=== PATIENT | female | born 1965 | race Caucasian/White ===

== ENCOUNTER 2021-02-07 11:37 | Outpatient (CLI) | payer BC, SELFPAY ==
--- NOTE | 2021-02-07 11:56 | XRR_ITS ---
PROCEDURE INFORMATION: Exam: XR Cervical Spine Exam date and time: 02/07/2021 11:56 AM Age: 55 years old Clinical indication: Pain; Cervicalgia; Prior surgery; Surgery type: C4-c5 disk; Additional info: Cervicalgia, please comment on presence or absence of spinal instability TECHNIQUE: Imaging protocol: XR of the cervical spine. Views: 2 or 3 views. COMPARISON: No relevant prior studies available. FINDINGS: Bones/joints: Intervertebral disc spacer at C4-C5 in expected alignment. No acute fracture. Normal alignment of the cervical spine on flexion and extension radiographs. Soft tissues: Unremarkable. XR/XR cervical spine fl/ex [id number] IMPRESSION: Intervertebral disc spacer at C4-C5 in expected alignment. No acute abnormalities.
== END 2021-02-07 11:38 | disposition home or self-care (01) ==
PROVIDERS: PCP Nurse Practitioner; Visit Provider Nurse Practitioner
DX: M54.2 Cervicalgia (principal)
CPT/HCPCS: 72040

== ENCOUNTER 2022-05-01 13:19 | Outpatient (CLI) | payer OTHER, SELFPAY ==
--- NOTE | 2022-05-01 13:45 | MR_ITS ---
WS: [id number] MRI HEAD WITH CONTRAST WITH ATTENTION TO THE INTERNAL AUDITORY CANALS TECHNIQUE: Sagittal T1, T2 axial, T2 axial flair, axial susceptibility weighted imaging, axial diffus ion weighted images, and coronal T2 images were obtained. Pre and post T1 axial and post T1 coronal i mages. ADC and FSPGR images. Post gadolinium images with attention to the internal auditory canals. A xial fiesta imaging. CLINICAL INFORMATION: G43.909 - Migraine, unspecified, not intractable, without... COMPARISON: None. FINDINGS: No evidence of restricted diffusion to suggest acute ischemia. Ventricular system and basal cisterns are patent. Minimal periventricular white matter changes likely due to minimal small vessel change in patient this age. No significant parenchymal volume loss. Normal posterior fossa. Normal vascular fl ow voids at the skull base. No extra-axial fluid collections. Mild mucosal thickening in the paranasa l sinuses. Mastoid air cells are well aerated. No hemosiderin on susceptibly weighted images. Inciden sam partially empty sella. Incidental bilateral petrous apex cephaloceles. Normal optic chiasm and pituitary infundibulum. Normal cavernous sinuses and Meckel's cave. Proximal 7th and 8th cranial nerves are normal in appearance. No evidence of enhancing IAC or CP angle mass. N ormal trigeminal nerve root entry zones. Benign venous angioma in the LEFT frontal lobe. MR/MR iac's wo con [id number] IMPRESSION: 1. No evidence of restricted diffusion to suggest acute ischemia. 2. 7th and 8th proximal cranial nerves are normal in appearance. No evidence o f enhancing IAC or CP angle mass. Normal trigeminal nerve root entry zones. 3. Benign incidental enhancing venous angioma in the LEFT frontal lobe. 4. No hemosiderin on the susceptibly weighted images. 5. Minimal periventricular small vessel changes. No significant parenchymal vo lume loss.
== END 2022-05-01 13:20 | disposition home or self-care (01) ==
PROVIDERS: PCP Nurse Practitioner Family; Visit Provider Specialist
DX: G43.909 Migraine, unspecified, not intractable, without status migrainosus (principal); Q28.3 Other malformations of cerebral vessels
CPT/HCPCS: 70551

== ENCOUNTER 2023-10-17 09:04 | Outpatient (CLI) | payer OTHER, SELFPAY ==
--- NOTE | 2023-10-17 09:17 | MR_ITS ---
WS: [id number] MRI CERVICAL SPINE NONCONTRAST TECHNIQUE: Sagittal T1, T2 and STIR imaging. Axial T2, gradient, and fiesta imaging. CLINICAL INFORMATION: M50.90 - Cervical disc disorder, unspecified, unspecified... FINDINGS: Straightening with slight reversal normal cervical lordosis. ACDF C4-5. No high-grade central canal n arrowing. Cord signal is normal. C2-C3: Normal. C3-C4: Normal. C4-C5: Postoperative changes ACDF. Mild facet arthropathy. Spinal canal and foramen are patent. C5-C6: Mild disc bulging with slight effacement of the ventral thecal sac. Uncovertebral joint hypert rophy. Spinal canal and foramen are patent. Mild facet arthropathy. C6-C7: Mild disc bulge with endplate ridging. Mild facet arthropathy. Spinal canal and foramen are pa tent. C7-T1: Slight LEFT C7-T1 bony foraminal narrowing. Visualized brain stem structures: Normal. Prevertebral soft tissues: Normal. MR/MR cervical spin wo con* [id number] IMPRESSION: 1. Straightening with slight reversal of the normal cervical lordosis. Postope rative changes ACDF C4-5. 2. No significant spinal canal or foraminal narrowing. 3. Slight LEFT C7-T1 foraminal narrowing. 4. Mild facet arthropathy worse at C3-C4 C4-C5 C5-C6
== END 2023-10-17 09:05 | disposition home or self-care (01) ==
LOC: RAD 09:07
PROVIDERS: PCP Family Medicine; Visit Provider Nurse Practitioner Family
DX: M62.81 Muscle weakness (generalized) (principal); G56.93 Unspecified mononeuropathy of bilateral upper limbs; M50.322 Other cervical disc degeneration at C5-C6 level; M47.812 Spondylosis without myelopathy or radiculopathy, cervical region
CPT/HCPCS: 72141

== ENCOUNTER 2023-11-06 10:57 | Outpatient (CLI) | payer OTHER, SELFPAY ==
--- NOTE | 2023-11-06 11:00 | MM_ITS ---
WS: [id number] VIEWS: MLO and CC views both breasts. 3D digital tomosynthesis is also included in this exam. No previous exams Findings: There is a 4 mm ovoid nodule identified in the RIGHT breast at about the 9 o'clock position anterior depth. No architectural distortion or suspicious calcification. The LEFT breast is unremarkable. Ther e are scattered areas of fibroglandular density. Regional ultrasound of the RIGHT breast is recommend ed for further work-up. MM/[place] [id number] Impression: BI-RADS: 0-Incomplete: Need additional imaging evaluation FOLLOW-UP: See Report This mammogram was also analyzed by the Computer Aided Detection System R2 Imag e Travel Guide.
== END 2023-11-06 10:58 | disposition home or self-care (01) ==
LOC: MOBLMAM 11:03
PROVIDERS: PCP Nurse Practitioner Family; Visit Provider Nurse Practitioner Family
DX: Z12.31 Encounter for screening mammogram for malignant neoplasm of breast (principal); N63.15 Unspecified lump in the right breast, overlapping quadrants; R92.323 Mammographic fibroglandular density, bilateral breasts
CPT/HCPCS: 77063; 77067

== ENCOUNTER 2024-12-21 21:03 | Emergency (ER) | payer OTHER, BC, SELFPAY ==
--- OUTSIDE RECORDS SUMMARY | 2020-04-16 15:08 | XMS_ITS | Continuity of Care Document ---
Author Organization [facility] Address [address] [place] [address] Phone Care Team Providers Care Molder Punch Name Role Phone No Information Unavailable Unavailable Allergies, Adverse Reactions, Alerts Substance Reaction Status Criticality codeine Dizziness Active No Information codeine GI Upset Active No Information trimethoprim sores in mouth Active No Informatio n sulfamethoxazole sores in mouth Active No Inform ation sulfamethoxazole Swelling Active No Informat ion Medications Medication Instructions Dosage Effective Dates (start - stop) Status Comments rosuvastatin 10 mg tablet take 1 tablet by oral route every day 10 MG - Active meloxicam 15 mg tablet take 1 tablet by oral route every day 15 MG - Active Lunesta 2 mg tablet take 1 tablet by oral route every day at bedtime 2 MG - Active duloxetine 30 mg capsule,delayed release take 1 capsule by oral route every day 30 MG - Active valacyclovir 1 gram tablet take 2 Tablet by oral route 2 times every day for 1 day at the first sign of a cold sore 2000 MG - Active cranberry 450 mg tablet - Active melatonin 10 mg capsule - Active Benadryl 25 mg capsule take 7 Capsule by oral route every 4 - 6 hours as needed 175 MG - Active lysine 1,000 mg tablet - Active Compound Medication ORAL TABLET - Active compounded cream: doxepin, gabapentin, ketamine Flonase Allergy Relief 50 mcg/actuation nasal spray,suspension inhale 2 spray by intranasal route every day in each nostril 100 MCG - Active Albuterol HFA 90mcg Inhalation AEROSOL take 2 puffs every 4-6 hours as needed - Active Protonix 20 mg tablet,delayed release take 2 tablet by oral route every day 40 MG - Active hydrocodone 7.5 mg-acetaminophen 325 mg tablet take 1 tablet by oral route every 6 hours as needed for pain 1.00 tablet - Active promethazine 25 mg tablet take 1 tablet by oral route every 4 hours as needed 25 MG - Active diazepam 10 mg tablet take 1 tablet by oral route 3 times every day 10 MG - Active Procedures Procedure Date Offic/outpt E&m Estab Mod-al 2 18 Offic/outpt E&m Estab Mod-al 2 17 Offic/outpt E&m Estab Mod-al 2 17 Venipuncture Gonadotropin; Follicle Stim Ho 17 Gonadotropin; Luteinizing Horm 17 Estradiol Progesterone General Health Panel Prevent E&m Estab Pt; 40-64 Yr 17 General Health Panel Hgb; Glycated Lipid Panel Venipuncture Offic/outpt E&m [facility] 45 7 Methylprednisolone Acetate-80mg 017 Therapeutic Prophylactic/Dx Injection Gaviria bq/Im MEDICAL RECORDS EA ADDT'L PAGE .50 PER P AGE Agt-immunassay Dir Obs; Strep 3 Offic/outpt E&m Estab Low-mod 3 Agt-immunassay Dir Obs; Strep 3 Offic/outpt E&m Estab Low-mod 3 Venipuncture Immuniz Admin; 1/combo Vacc/to 13 Ua Dip Stik/tablet; Wo Micro A 13 Offic/outpt E&m Estab Mod-hi 2 13 Lipid Panel Comp Metabolic Panel Offic/outpt E&m Estab Mod-hi 2 13 Prevent E&m Estab Pt; 40-64 Yr 13 Venipuncture Lipid Panel General Health Panel Offic/outpt E&m Estab Low-mod 3 Ua Dip Stik/tablt;wo Micro Non 13 Offic/outpt E&m New Mod Sever 3 Advance Directives Directive Yes / No Effective Date File Name No Information Encounters Encounter Description Practice Location Reason(s) For Visit Diagnoses Date Provider Providers Copied on Encounter Medical [facility], [address], [place], [place], [id number] , tel: [phone] No Information 0 No Information Medical [facility], [address], [place], [place], [address] , tel: [phone] [place] No Information 9 Colt Francesca. [address] [facility], [facility] [address], [place], [place], [id number], [place]. tel:[phone] [facility], [address], [place], [place], [id number] , [place] tel: [phone] [place] No Information 8 Colt Francesca. [address] [facility], [facility] [address], [place], [place], [address], [place]. tel:[phone] [facility], [address], [place], [place], [id number] , [place] tel: [phone] [place] No Information 8 Colt Francesca. [address] [facility], [facility] [address], [place], [place], [address], [place]. tel:[phone] Offic/outpt E&m Estab Mod-hi 2 Medical [facility], [address], [place], [place], [address] , [place] tel: [phone] [place] AnxietyHot flashesRecurren t cold soresPrimary insomnia 8 Colt Francesca. [address] [facility], [address], [place], [place], [address], [place]. [phone] Referring Provider: Francesca Boyce, [address] [place] [address] [address], [place], [address]. tel:[phone] Offic/outpt E&m Estab [facility], [address], [place], [place], [address] , [place] tel: [phone] [place] Fatigue, unspecified typeHot flashesDepressi on with anxiety 7 Colt Francesca. [address] [place] [address], [address], [place], [place], [address], [place]. [phone] Referring Provider: Francesca Boyce, [address] [place] [address] [address], [place], [address]. tel:[phone] Offic/outpt E&m Estab [facility], [address], [place], [place], [address] , [place] tel: [phone] [facility] Chronic fatigueGenerali zed painOther social stressorHot flashes 7 Colt Francesca. [address] [place] [address], [address], [place], [place], [address], [place]. tel:[phone] Referring Provider: Francesca Boyce, [address] [place] [address] [address], [place], [address]. [phone] [facility], [address], [place], [place], [id number] , [place] tel: [phone] [place] No Information May- 7 Mónica Hull. [address], [address], [place], [place], [address], [place]. [phone] Medical [facility], [address], [place], [place], [address] , [place] tel: [phone] [facility] No Information 7 Mónicaricardo Rhodesng. [address], [address], [place], [place], [address], [place]. tel:[phone] Prevent E&m Estab Pt; 40-64 Yr Medical [facility], [address], [place], [place], [address] , [place] tel: [phone] [place] Annual physical examCervical disc diseaseBreast cancer screening 7 Mónica Hull. [address], [address], [place], [place], [address], [place]. tel:[phone] Referring Provider: Francesca Boyce, [address] [address], [place], [address]. tel:[phone] [facility], [address], [place], [place], [address] , [place] tel: [phone] [place] No Information 7 Mónica Hull. [address], [facility] [address], [place], [place], [address], [place]. tel:[phone] Offic/outpt E&m New Mod-hi 45 Medical [facility], [address], [place], [place], [address] , [place] tel: [phone] [place] Allergic rhinitis, unspecified allergic rhinitis trigger, unspecified rhinitis seasonalityOthe r chronic painAnxietyWhee zing 7 Mónica Hull. [address], [address], [place], [place], [address], [place]. tel:[phone] Referring Provider: Francesca Boyce, [address] [facility] [address], [place], [address]. [phone] Medical [facility], [address], [place], [place], [address] , [place] tel: [phone] [facility] No Information 5 Colt Francesca. [address] [facility], [address], [place], [place], [address], [place]. tel:[phone] Referring Provider: Francesca Boyce, [address] [facility] [address], [place], [address]. [phone] Offic/outpt E&m [facility], [address], [place], [place], [id number] , [place] tel: [phone] [facility] URI - UPPER RESP. INFECTIONPHARYN GITIS,ACUTE 3 Colt Francesca. [address] [facility], [address], [place], [place], [address], [place]. tel:[phone] Referring Provider: Francesca Boyce, [address] [place] [address] [address], [place], [address]. tel:[phone] Offic/outpt E&m [facility], [address], [place], [place], [address] , [place] tel: [phone] [facility] PHARYNGITIS,ACU TELARYNGITIS,AC YOCHA DEHE W/O OBSTRUCTIONCOUG H Nov- 3 Francisco House. [address] [facility], [address], [place], [place], [address], [place]. tel:[phone] Referring Provider: Francesca Boyce, [facility] [facility] [address], [place], [address]. tel:[phone] Offic/outpt E&m [facility] Medical [facility], [address], [place], [place], [address] , [place] tel: [phone] [facility] DYSURIADISCITIS , CERVICALPAIN, ABD, GENERALIZEDHYPE RLIPIDEMIA, UNSPECIFIED Oct-0 3-201 3 Colt Francesca. [address] [facility], [address], [place], [place], [address], [place]. tel:[phone] Referring Provider: Francesca Boyce, [address] [facility] [address], [place], [address]. tel:[phone] Offic/outpt E&m Estab Mod-hi 2 Medical [facility], [address], [place], [place], [address] , [place] tel: [phone] [facility] HYPERLIPIDEMIA, UNSPECIFIEDDYSP AREUNIADISCITIS , CERVICAL Aug-0 5 3 Colt Francesca. [address] [facility], [address], [place], [place], [address], [place]. tel:[phone] Referring Provider: Francesca Boyce, [address] [facility] [address], [place], [address]. tel:[phone] Prevent E&m Estab Pt; 40-64 Yr Medical [facility], [address], [place], [place], [address] , [place] tel: [phone] [facility] EXAM, GENERAL, ROUTINEEXAM, GYNECOLOGICALDY SPAREUNIA Kemal-2 3 Colt Francesca. [address] [facility], [address], [place], [place], [address], [place]. tel:[phone] Referring Provider: Francesca Boyce, [address] [facility] [address], [place], [address]. tel:[phone] Offic/outpt E&m Estab Low-mod Medical [facility], [address], [place], [place], [address] , [place] tel: [phone] [facility] URI - UPPER RESP. INFECTION 3 Colt Francesca. [address] [facility], [address], [place], [place], [address], . tel:[phone] Referring Provider: Francesca Boyce, [address] [facility] [address], [place], [address]. [phone] Offic/outpt E&m [facility], [address], [place], [place], [address] , [place] tel:[phone] [facility] DISCITIS, CERVICALDISCITI S, CERVICALRHINITI S, ALLERGICRHINITI S, ALLERGICPAIN, ABD, GENERALIZEDPAIN , ABD, GENERALIZEDCONS TIPATION, OTHERCONSTIPATI ON, OTHERANXIETYANX IETY 3 Colt Francesca. [address] [facility], [address], [place], [place], [address], . tel:[phone] Referring Provider: Francesca Boyce, [address] [place] [address] [address], [place], [address]. [phone] Family History Family Member Type Diagnosis Age At Onset grandmother (materna Problem (finding) Leukemia Mother Problem (finding) Coronary Artery Disease Father Problem (finding) Throat Cancer Mother Problem (finding) Diabetes Siblings Problem (finding) hep C X 1 Siblings Problem (finding) htn X 4, DMX2, mental i llness X2 Immunizations Vaccine Date Status Comments Influenza Vaccine administered Note: Admi nistered by Collin Esteban ; Source: New Immunization Record Payers Payer name Insurance type Covered democrat ID Authoriza tion(s) No Information Social History Type Description Quantity Date Captured Comments Alcohol Use Details wine 2 Caffeine Use Details 2 cups per day Tobacco Use Status No Information Smoking Status No Information Sex Female Chief Complaint And Reason For Visit No Information Reason For Referral Reason For Referral No Information Plan Of Treatment Date Type Action Status Referral Referred To: [facility] [address] [place], [id number] Ordered: Diagnostic Order: Mammogram Screening 3D w/ additional views and/or US if indicated ordered Referral Referred To: Josh Cox DO [address] [facility]
[address] [place], [id number] Ordered: Referrals: Anethesiology - Josh Cox DO ordered History Of Present Illness Encounter Date Complaint History Of Prese nt Illness No Information Functional Status Date Functional Assessmen t No Information Instructions Date Instruction Additional Infor mation No Information Assessments Type Assessment Date No Information Patient Care Teams Name Effective Dates (start - stop) Status Members No Information
[2024-12-21 21:08] VITALS: BP 131/68; PULSE 85; RESP 16; TEMP 36.4; O2SAT 100; BMI 32.9
--- OUTSIDE RECORDS SUMMARY | 2024-12-21 21:13 | XMS_ITS | Encounter Summary ---
Author Organization [facility] Address [address] [place] [address] Care Team Providers Care Gambling Floor Supervisor Name Role Phone Jaiden Schulte MD Primary Care Provider Encounter Details Date Type Department Care Team (Latest Contact Info) Description 01/09/2000 Outpatient Historical [address] [phone] Jaiden Schulte MD [address] [place] [phone] Unspecified otitis media (Primary Dx); Acute pharyngitis Social History Tobacco Use Types Packs/Day Years Used Date Smoking Tobacco: Never Assessed Comments Unknown Sex and Gender Information Value Date Recorded Sex Assigned at Not on file 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
--- OUTSIDE RECORDS SUMMARY | 2024-12-21 21:13 | XMS_ITS | Data Portability ---
Author Organization [place] - [facility] , [facility] Address [address] [place] [address] Assessment Encounter Date Assessment Date Assessment LastModified by Organization Details LastModified Time 06/11/2024 06/11/2024 58 year old female with sinusitis ongoing 3 weeks with purulent PND cough headache new fever and chills rx augmentin mucinex tessalon reviewed and sent rest push fluids symptomatic care follow up for new or worsening symptoms or if no better 5-7 days patient voiced good understanding and agreement with plan Not available 06/11/2024 20:25:15 Plan of Treatment Reminders Order Date Submit Date Provider Last Modified By Organization Details Last Modified Time Details Appointments None recorded. Lab None recorded. Referral None recorded. Procedures None recorded. Surgeries None recorded. Imaging None recorded. Medication Orders benzonatate 100 mg capsule 2024 025 [facility] , [address] [place], [address], 13:01:50 Augmentin 875 mg-125 mg tablet 2024 025 [facility], [address] [place], [address], 13:01:49 guaifenesin ER 600 mg tablet, extended release 12 hr 2024 025 [facility] , [address] [place], [address], 13:01:50 Patient TargetsNo targets recorded. Patient Instructions Encounter Date Encounter Id Patient Instructions Last Modified By Organization Details Last Modified Time 06/11/2024 [id number] Acute Sinusitis: Care Instructions Not available 06/11/2024 13:01:32 headache: care instructions Not available 06/11/2024 13:01:32 cough: care instructions Not available 06/11/2024 13:01:32 Acute Sinusitis: Care Instructions Not available 06/11/2024 13:01:32 58 year old fema le with sinusitis ongoing 3 weeks with purulent PND cough headache new fever and chills rx augmentin mucinex tessalon reviewed and sent rest push fluids symptomatic care follow up for new or worsening symptoms or if no better 5-7 days patient voiced good understanding and agreement with plan Not available 06/11/2024 20:25:20 Reason for Referral None Reported. Problems Name Problem SNOMED Code Status Onset Date Resolution Date Notes Provider Name and Address Organization Details Recorded Time Migraine 88062289 Active 2024 Nury Miramontes MD 1 [facility] [address] [place] [address], [phone], [place] [facility] 12:54:30 Gastroesop hageal reflux disease 007149265 Active 2024 Nury Miramontes MD 1 [facility] [address] [place] [address], [address], [place] [facility] 12:54:39 Trigeminal neuralgia 98809571 Active 2024 Nury Miramontes MD 1 [facility] [address] [place] [address], [address], [place] [facility] 5 12:55:30 Chronic neck pain 800285216093 7 Active 2024 Nury Miramontes MD 1 [facility] [address] [place], [address], [place] [facility] 12:56:09 Chronic back pain 770409588 Active 2024 Nury Miramontes MD 1 [facility] [address], [place], [address], [place] [facility] 12:56:18 Hyperchole sterolemia 42195726 Active 2024 Nury Miramontes MD 1 [facility] [address], [place], [address], [place] [facility] 12:56:41 Menopause Active 2024 Nury Miramontes MD 1 [facility] [address], [place], [address], [place] [facility] 5 12:57:31 Problem Notes None recorded. Medical Equipment None Reported. Allergies Allergen ID Allergen Name Allergen Category Reaction Reaction Severity Criticality Documentation Date Start Date Code Code System Note Provider Name and Address Organization Details Recorded Time 342168 Bactrim medicatio n Not available Not available Not available 06/11/2024 52264 9 RxNorm mouth sores swell ing of lips Nury Miramontes MD 1 [facility] [address], [place], [address], [place] [facility] 5 12:53:01 Medications Name Sig Start Date Stop Date Status Note LastModified by Organization Details LastModified Time Augmentin 875 mg-125 mg tablet Take 1 tablet every 12 hours by oral route for 7 days. 2024 active Not Available Not Available Not Avai lable sumatript an 25 mg tablet Take by oral route. active Not Available Not Available No t Available benzonata te 100 mg capsule Take 1 capsule 3 times a day by oral route as needed, for cough. 2024 active NOT RECOMMEN DED in patient' s less than 10 years of age Not Available Not Available Not Available pantopraz ole 40 mg tablet,de layed release Take 1 tablet every day by oral route. active Not Available Not Available No t Available hydrocodo ne 10 mg-acetam inophen 300 mg tablet active ADDED BY PATIENT: Not Available Not Available Not Available sumatript an 06/11 completed Not Available Not Available Not Available estradiol active ADDED BY PATIENT: Not Available Not Available Not Available lamotrigi ne active ADDED BY PATIENT: Not Available Not Available Not Available baclofen active ADDED BY PATIENT: Not Available Not Available Not Available rosuvasta tin active ADDED BY PATIENT: Not Available Not Available Not Available guaifenes in ER 600 mg tablet, extended release 12 hr Take 1 tablet every 12 hours by oral route as needed, for congesti on. 2024 active NOT RECOMMEN DED IN patients </= 4 years of age Not Available Not Available Not Available Vitals Date Recorded Body temperature Body height Body mass index (BMI) Body weight Provider Name and Address Organization Details Last Updated DateTime 06/11/2024 99 [degF] 157.48 cm 32 kg/m2 59465.66 g Nury Miramontes MD 1 [facility] [address], [place], [address], [place] [facility] 06/11/2024 12:57:57 Social History None recorded. Functional Status None recorded. Mental Status None recorded. Family History Nothing Reported. Medical History No medical history recorded. Gynecological HistoryNo gynecological history recorded. Obstetrics History GPAL:G 0 P 0 0 0 0 Past Encounters Encounter ID Performer Location Encounter Start Date Encounter Closed Date Diagnosis/Indication Diagnosis SNOMED-CT Code Diagnosis ICD10 Code Diagnosis Note [id number] Nury Miramontes MD [facility] [address] [place] [address] 06/11/2024 12:43:10 06/12/2024 01:01:40 Acute maxillary sinusitis 89808362 J01.00 Acute fron sam sinusitis 67811462 J01.10 Cough 40606869 R05.9 Headache 76550070 R51.9 Fever with chills 864078 006 R50.9 Health Concerns Section Related Observation LastModified by Organization Detai ls LastModified Time None Recorded Concern Status LastModified by Organization Details LastModified Time None Recorded Advance Directives Directive None Recorded Payers Insurance Date Sequence Insurance Name Policy Number Policy Cho Covered Member ID Cho Member ID Guarantor Name 10/24/2024 2 *SELF PAY* [id number] Macario Trudy [id number] Macario [place]oughridge 06/11/2024 1 *SELF PAY* Ri suhas Loughridge 10/30/2024 1 [facility] [id number] Macario Edaughophelia [id number] Macario Loughridge 10/30/2024 [facility] [id number] Macario Loughridlucia [id number] Macario Yates Notes Date Note Type Note Provider Name and Address Organization Details Recorded Time 06/11/2024 text/html 58 year old female complaining of started 3 weeks ago feeling unwell with sore throat 10 days ago was seen and had an ulcer in her throat which was felt to be viral she started 6 days ago with cough nasal congestion mild maxillary sinus pressure she has right ear pain she is aware ears can not be examined on line she has a cough productive but has not spit anything out nasal discharged is greenish she has ongoing sore throat low grade fever 99 she has headache 3/10 full normal ROM for her (she has a disc in her neck) no CP no SOB but hard to get a full deep breath in it makes her dizzy and makes her cough mild nausea no vomiting no diarrhea no change in taste or smell appetite has been poor she tested negative for covid 10 days ago she has had covid she has been vaccinated and boostered for covid Nury Miramontes MD [address] [place] [address] [address], [place], [address], [facility] [place] - [facility] 06/11/2024 20:25:45 OBGyn Episode No OBEpisode recorded.
--- OUTSIDE RECORDS SUMMARY | 2024-12-21 21:13 | XMS_ITS | Encounter Summary ---
Author Organization [facility] Address [address] [place] [address] Care Team Providers Care Model Maker Scale Name Role Phone Jaiden Schulte MD Primary Care Provider Encounter Details Date Type Department Care Team (Latest Contact Info) Description 04/21/2002 Outpatient Historical [address] [phone] Jaiden Schulte MD [address] [place] [phone] VISUAL LOSS NOS (Primary Dx) Social History Tobacco Use Types Packs/Day Years Used Date Smoking Tobacco: Never Assessed Comments Unknown Sex and Gender Information Value Date Recorded Sex Assigned at Not on file 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
--- OUTSIDE RECORDS SUMMARY | 2024-12-21 21:13 | XMS_ITS | Encounter Summary ---
Author Organization [facility] Address [address] [place] [address] Care Team Providers Care Armature Straightener Name Role Phone Jaiden Schulte MD Primary Care Provider Encounter Details Date Type Department Care Team (Late st Contact Info) Description 04/23/2002 Outpatient Historical [facility] [address] [place] [phone] Social History Tobacco Use Types Packs/Day Years Used Date Smoking Tobacco: Never Assessed Comments Unknown Sex and Gender Information Value Date Recorded Sex Assigned at Not on file 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
--- OUTSIDE RECORDS SUMMARY | 2024-12-21 21:13 | XMS_ITS | Encounter Summary ---
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 General & Specialty Surgery Electronically Signed by Edgar Paige M.D. 07/05/2007 05:53 D: , A, 860 Job #: , Document #: [id number], Visit #: BI DEVELOPER BI DEVELOPER * Edgar Paige - 05/16/2007 12:00 AM CST Andree Yates [id number] : 1965 06/12/07 - Admitted to [facility] 06/21/07 - Discharged Diagnosis: Abdominal pain (789.00), nausea and vomiting (787.01) and chills with fever (780.6) Edgar Paige M.D. General & Specialty Surgery Electronically Signed by Edgar Paige M.D. 07/05/2007 05:53 D: , A, 860 Job #: , Document #: [id number], Visit #: BI DEVELOPER BI DEVELOPER * Edgar Paige - 05/16/2007 12:00 AM CST Andree Yates [id number] : 1965 06/12/07 - ADMITTED: [facility] 06/21/07 - Dismissed Diagnosis: suprapubic abdominal pain & N & V, fever & chills Edgar Paige M.D. General & Specialty Surgery Electronically Signed by Edgar Paige M.D. 07/19/2007 06:10 D: , A, ds1 Job #: , Document #: [id number], cc: BI DEVELOPER documented in this encounter Plan of Treatment Not on file documented as of this encounter Visit Diagnoses Not on filedocumented in this encounter Care Teams Parking Enforcement Technician Relationship Specialty Start Date End Date Jaiden Schulte MD [address] [place] [address] PCP - General 04/24/07 documented as of this encounter
--- OUTSIDE RECORDS SUMMARY | 2024-12-21 21:13 | XMS_ITS | Encounter Summary ---
Author Organization [facility] Address [address] [place] [address] Care Team Providers Care Segmental Paver Installer Name Role Phone Jaiden Schulte MD Primary Care Provider [phone] Encounter Details Date Type Department Care Team (Latest Contact Info) Description 05/17/2007 Inpatient Historical [facility] [address] [place] [address] [phone] Edgar Paige MD NO ADDRESS ON FILE Incisional Hernia without Mention of Obstruction or Gangrene; Esophageal Reflux; Degeneration of Cervical Intervertebral Disc Social History Tobacco Use Types Packs/Day Years Used Date Smoking Tobacco: Never Assessed Comments Unknown Sex and Gender Information Value Date Recorded Sex Assigned at Not on file 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
--- OUTSIDE RECORDS SUMMARY | 2024-12-21 21:13 | XMS_ITS | Encounter Summary ---
Author Organization [facility] Address [address] [place] [address] Care Team Providers Care Security Services Manager Name Role Phone Jaiden Schulte MD Primary Care Provider [phone] Encounter Details Date Type Department Care Team (Late st Contact Info) Description 06/12/2007 Inpatient Historical [facility] Surgical [address] [place] [address] Edgar Paige MD NO ADDRESS ON FILE Social History Tobacco Use Types Packs/Day Years Used Date Smoking Tobacco: Never Assessed Comments Unknown Sex and Gender Information Value Date Recorded Sex Assigned at Not on file Legal Sex Female 4:50 AM FINANCIAL MARKET DEAL[employer] Gender Identity Not on file Sexual Orientation Not on file documented as of this encounter Plan of Treatment Not on file documented as of this encounter Procedures Procedure Name Priority Date/Time Associated Diagnosis Comments POC GLUCOSE Routine 06/21/2007 11:24 AM FIN[employer]CIAL MARKET DEALER POC GLUCOSE Routine 06/21/2007 6:34 AM FINANCIAL MARKET DEALER POC GLUCOSE Routine 06/20/2007 8:50 PM FINANCIAL MARKET DEALER POC GLUCOSE Routine 06/20/2007 6:00 PM FIN[employer]CIAL MARKET DEALER POC GLUCOSE Routine 06/20/2007 11:18 AM FINANCIAL MARKET DEALER POC GLUCOSE Routine 06/20/2007 6:09 AM FINANCIAL MARKET DEALER POC GLUCOSE Routine 06/19/2007 9:20 PM FINANCIAL MARKET DEALER POC GLUCOSE Routine 06/19/2007 5:04 PM FIN[employer]CIAL MARKET DEALER POC GLUCOSE Routine 06/19/2007 11:56 AM FINANCIAL MARKET DEALER OCCULT BLOOD GUAIAC DIAGNOSTIC Routine 06/19/2007 9:23 AM FINANCIAL MARKET DEALER OCCULT BLOOD GUAIAC DIAGNOSTIC Routine 06/19/2007 8:54 AM FIN[employer]CIAL MARKET DEALER POC GLUCOSE Routine 06/19/2007 6:02 AM FINANCIAL MARKET DEALER POC GLUCOSE Routine 06/18/2007 10:05 PM FIN[employer]CIAL MARKET DEALER OCCULT BLOOD GUAIAC DIAGNOSTIC Routine 06/18/2007 6:03 PM FINANCIAL MARKET DEALER POC GLUCOSE Routine 06/18/2007 5:10 PM FINANCIAL MARKET DEALER POC GLUCOSE Routine 06/18/2007 11:55 AM FINANCIAL MARKET DEALER POC GLUCOSE Routine 06/18/2007 6:09 AM FINANCIAL MARKET DEALER POC GLUCOSE Routine 06/17/2007 9:40 PM FINANCIAL MARKET DEALER POC GLUCOSE Routine 06/17/2007 5:18 PM FINANCIAL MARKET DEALER POC GLUCOSE Routine 06/17/2007 10:54 AM FINANCIAL MARKET DEALER PT AND APTT Routine 06/17/2007 10:42 AM FIN[employer]CIAL MARKET DEALER POC GLUCOSE Routine 06/17/2007 6:48 AM FINANCIAL MARKET DEALER CBC WITH DIFFERENTIAL Routine 06/17/2007 4:45 AM FIN[employer]CIAL MARKET DEALER BASIC METABOLIC PANEL Routine 06/17/2007 4:45 AM FINANCIAL MARKET DEALER POC GLUCOSE Routine 06/16/2007 9:31 PM FINANCIAL MARKET DEALER POC GLUCOSE Routine 06/16/2007 5:17 PM FINANCIAL MARKET DEALER POC GLUCOSE Routine 06/16/2007 10:38 AM FINANCIAL MARKET DEALER POC GLUCOSE Routine 06/16/2007 6:02 AM FINANCIAL MARKET DEALER CBC WITH DIFFERENTIAL Routine 06/16/2007 4:00 AM FIN[employer]CIAL MARKET DEALER COMPREHENSIVE METABOLIC PANEL Routine 06/16/2007 4:00 AM FINANCIAL MARKET DEALER POC GLUCOSE Routine 06/15/2007 11:01 PM FINANCIAL MARKET DEALER POC GLUCOSE Routine 06/15/2007 5:40 PM FINANCIAL MARKET DEALER POC GLUCOSE Routine 06/15/2007 11:40 AM FINANCIAL MARKET DEALER POC GLUCOSE Routine 06/15/2007 5:46 AM FINANCIAL MARKET DEALER CBC WITH DIFFERENTIAL Routine 06/15/2007 5:31 AM FINANCIAL MARKET DEALER MAGNESIUM LEVEL Routine 06/15/2007 5:31 AM FIN[employer]CIAL MARKET DEALER BASIC METABOLIC PANEL Routine 06/15/2007 5:31 AM FINANCIAL MARKET DEALER POC GLUCOSE Routine 06/14/2007 11:12 PM FINANCIAL MARKET DEALER POC GLUCOSE Routine 06/14/2007 5:43 PM FIN[employer]CIAL MARKET DEALER POC GLUCOSE Routine 06/14/2007 11:01 AM FIN[employer]CIAL MARKET DEALER POC GLUCOSE Routine 06/14/2007 6:18 AM FINANCIAL MARKET DEALER CBC WITH DIFFERENTIAL Routine 06/14/2007 4:08 AM FINANCIAL MARKET DEALER MAGNESIUM LEVEL Routine 06/14/2007 4:08 AM FIN[employer]CIAL MARKET DEALER BASIC METABOLIC PANEL Routine 06/14/2007 4:08 AM FINANCIAL MARKET DEALER POC GLUCOSE Routine 06/13/2007 11:24 PM FINANCIAL MARKET DEALER POC GLUCOSE Routine 06/13/2007 5:39 PM FINANCIAL MARKET DEALER POC GLUCOSE Routine 06/13/2007 11:49 AM FINANCIAL MARKET DEALER POC GLUCOSE Routine 06/13/2007 5:31 AM FINANCIAL MARKET DEALER CBC WITH DIFFERENTIAL Routine 06/13/2007 3:23 AM FINANCIAL MARKET DEALER MAGNESIUM LEVEL Routine 06/13/2007 3:23 AM FINANCIAL MARKET DEALER BASIC METABOLIC PANEL Routine 06/13/2007 3:23 AM FINANCIAL MARKET DEALER POC GLUCOSE Routine 06/13/2007 12:27 AM FINANCIAL MARKET DEALER ICTOTEST Routine 06/12/2007 9:46 PM FIN[employer]CIAL MARKET DEALER URINALYSIS MICROSCOPY ONLY Routine 06/12/2007 9:46 PM FINANCIAL MARKET DEALER KETONE, QUALITATIVE, URINE Routine 06/12/2007 9:46 PM FIN[employer]CIAL MARKET DEALER URINALYSIS W/REFLEX MICROSCOPIC Routine 06/12/2007 9:[address] URINARY CALCULI WO CONTRAST Routine 06/12/2007 7:[address] LIMITED LOCALIZED F/U STUDY Routine 06/12/2007 7:15 PM FIN[employer]CIAL MARKET DEALER XR CHEST PA AND LATERAL 2 VW Routine 06/12/2007 7:15 PM FIN[employer]CIAL MARKET DEALER documented in this encounter Results * (ABNORMAL) POC GLUCOSE (06/21/2007 11:24 AM FINANCIAL MARKET DEALER) GLUCOSE POC 119(H) 60 - 100 mg/dL INTERFACE SYSTEM 06/21/2007 11:2 4 AM FINANCIAL MARKET DEALER us Edgar Paige MD POINT OF CARE TESTING Edit ed INTERFACE SYSTEM Refer to clinic/hospital department * (ABNORMAL) POC GLUCOSE (06/21/2007 6:34 AM FINANCIAL MARKET DEALER) GLUCOSE POC 105(H) 60 - 100 mg/dL INTERFACE SYSTEM 06/21/2007 6:34 AM FINANCIAL MARKET DEALER us Edgar Paige MD POINT OF CARE TESTING Edit ed Performing Organization Address [facility] Phone Number INTERFACE SYSTEM Refer to clinic/hospital department * (ABNORMAL) POC GLUCOSE (06/20/2007 8:50 PM FINANCIAL MARKET DEALER) GLUCOSE POC 130(H) 60 - 100 mg/dL INTERFACE SYSTEM 06/20/2007 8:50 PM FINANCIAL MARKET DEALER us Edgar Paige MD POINT OF CARE TESTING Edit ed Performing Organization Address [facility] Phone Number INTERFACE SYSTEM Refer to clinic/hospital department * (ABNORMAL) POC GLUCOSE (06/20/2007 6:00 PM FINANCIAL MARKET DEALER) GLUCOSE POC 116(H) 60 - 100 mg/dL INTERFACE SYSTEM 06/20/2007 6:00 PM FINANCIAL MARKET DEALER us Edgar Paige MD POINT OF CARE TESTING Edit ed Performing Organization Address [facility] Phone Number INTERFACE SYSTEM Refer to clinic/hospital department * (ABNORMAL) POC GLUCOSE (06/20/2007 11:18 AM FINANCIAL MARKET DEALER) GLUCOSE POC 121(H) 60 - 100 mg/dL INTERFACE SYSTEM 06/20/2007 11:1 8 AM FINANCIAL MARKET DEALER us Edgar Paige MD POINT OF CARE TESTING Edit ed Performing Organization Address [facility] Phone Number INTERFACE SYSTEM Refer to clinic/hospital department * (ABNORMAL) POC GLUCOSE (06/20/2007 6:09 AM FINANCIAL MARKET DEALER) GLUCOSE POC 135(H) 60 - 100 mg/dL INTERFACE SYSTEM 06/20/2007 6:09 AM FINANCIAL MARKET DEALER us Edgar Paige MD POINT OF CARE TESTING Edit ed Performing Organization Address [facility] de Phone Number INTERFACE SYSTEM Refer to clinic/hospital department * (ABNORMAL) POC GLUCOSE (06/19/2007 9:20 PM FINANCIAL MARKET DEALER) GLUCOSE POC 123(H) 60 - 100 mg/dL INTERFACE SYSTEM 06/19/2007 9:20 PM FINANCIAL MARKET DEALER Edgar Paige MD POINT OF CARE TESTING Edit ed Performing Organization Address [facility] Phone Number INTERFACE SYSTEM Refer to clinic/hospital department * (ABNORMAL) POC GLUCOSE (06/19/2007 5:04 PM FINANCIAL MARKET DEALER) GLUCOSE POC 135(H) 60 - 100 mg/dL INTERFACE SYSTEM 06/19/2007 5:04 PM FINANCIAL MARKET DEALER Edgar Paige MD POINT OF CARE TESTING Edit ed Performing Organization Address [facility] Phone Number INTERFACE SYSTEM Refer to clinic/hospital department * (ABNORMAL) POC GLUCOSE (06/19/2007 11:56 AM FINANCIAL MARKET DEALER) GLUCOSE POC 141(H) 60 - 100 mg/dL INTERFACE SYSTEM 06/19/2007 11:5 6 AM FINANCIAL MARKET DEALER Edgar Paige MD POINT OF CARE TESTING Edit ed Performing Organization Address [facility] Phone Number INTERFACE SYSTEM Refer to clinic/hospital department * OCCULT BLOOD, STOOL (06/19/2007 9:23 AM FINANCIAL MARKET DEALER) OCCULT BLOOD #1 Negative INTERFACE SYSTEM 06/19/2007 9:23 AM FINANCIAL MARKET DEALER us Edgar Paige MD BODY FLUIDS AND STOOLS Kris kavya Performing Organization Address [facility] de Phone Number INTERFACE SYSTEM Refer to clinic/hospital department * OCCULT BLOOD, STOOL (06/19/2007 8:54 AM FINANCIAL MARKET DEALER) OCCULT BLOOD #1 Negative INTERFACE SYSTEM 06/19/2007 8:54 AM FINANCIAL MARKET DEALER us Edgar Paige MD BODY FLUIDS AND STOOLS Kris kavya Performing Organization Address [facility] Phone Number INTERFACE SYSTEM Refer to clinic/hospital department * (ABNORMAL) POC GLUCOSE (06/19/2007 6:02 AM FINANCIAL MARKET DEALER) GLUCOSE POC 142(H) 60 - 100 mg/dL INTERFACE SYSTEM 06/19/2007 6:02 AM FINANCIAL MARKET DEALER us Edgar Paige MD POINT OF CARE TESTING Edit ed Performing Organization Address [facility] Phone Number INTERFACE SYSTEM Refer to clinic/hospital department * (ABNORMAL) POC GLUCOSE (06/18/2007 10:05 PM FINANCIAL MARKET DEALER) GLUCOSE POC 123(H) 60 - 100 mg/dL INTERFACE SYSTEM 06/18/2007 10:0 5 PM FINANCIAL MARKET DEALER us Edgar Paige MD POINT OF CARE TESTING Edit ed Performing Organization Address [facility] Phone Number INTERFACE SYSTEM Refer to clinic/hospital department * OCCULT BLOOD, STOOL (06/18/2007 6:03 PM FINANCIAL MARKET DEALER) OCCULT BLOOD #1 Negative INTERFACE SYSTEM 06/18/2007 6:03 PM FINANCIAL MARKET DEALER us Edgar Paige MD BODY FLUIDS AND STOOLS Kris kavya Performing Organization Address [facility] Phone Number INTERFACE SYSTEM Refer to clinic/hospital department * (ABNORMAL) POC GLUCOSE (06/18/2007 5:10 PM FINANCIAL MARKET DEALER) GLUCOSE POC 112(H) 60 - 100 mg/dL INTERFACE SYSTEM 06/18/2007 5:10 PM FINANCIAL MARKET DEALER us Edgar Paige MD POINT OF CARE TESTING Edit ed Performing Organization Address [facility] de Phone Number INTERFACE SYSTEM Refer to clinic/hospital department * (ABNORMAL) POC GLUCOSE (06/18/2007 11:55 AM FINANCIAL MARKET DEALER) GLUCOSE POC 110(H) 60 - 100 mg/dL INTERFACE SYSTEM 06/18/2007 11:5 5 AM FINANCIAL MARKET DEALER Edgar Paige MD POINT OF CARE TESTING Edit ed Performing Organization Address [facility] de Phone Number INTERFACE SYSTEM Refer to clinic/hospital department * (ABNORMAL) POC GLUCOSE (06/18/2007 6:09 AM FINANCIAL MARKET DEALER) GLUCOSE POC 133(H) 60 - 100 mg/dL INTERFACE SYSTEM 06/18/2007 6:09 AM FINANCIAL MARKET DEALER Edgar Paige MD POINT OF CARE TESTING Edit ed Performing Organization Address [facility] de Phone Number INTERFACE SYSTEM Refer to clinic/hospital department * (ABNORMAL) POC GLUCOSE (06/17/2007 9:40 PM FINANCIAL MARKET DEALER) GLUCOSE POC 134(H) 60 - 100 mg/dL INTERFACE SYSTEM 06/17/2007 9:40 PM FINANCIAL MARKET DEALER Edgar Paige MD POINT OF CARE TESTING Edit ed Performing Organization Address [facility] de Phone Number INTERFACE SYSTEM Refer to clinic/hospital department * (ABNORMAL) POC GLUCOSE (06/17/2007 5:18 PM FINANCIAL MARKET DEALER) GLUCOSE POC 113(H) 60 - 100 mg/dL INTERFACE SYSTEM 06/17/2007 5:18 PM FINANCIAL MARKET DEALER Edgar Paige MD POINT OF CARE TESTING Edit ed Performing Organization Address [facility] de Phone Number INTERFACE SYSTEM Refer to clinic/hospital department * (ABNORMAL) POC GLUCOSE (06/17/2007 10:54 AM FINANCIAL MARKET DEALER) GLUCOSE POC 112(H) 60 - 100 mg/dL INTERFACE SYSTEM 06/17/2007 10:5 4 AM FINANCIAL MARKET DEALER Edgar Paige MD POINT OF CARE TESTING Edit ed Performing Organization Address [facility] Co de Phone Number INTERFACE SYSTEM Refer to clinic/hospital department * (ABNORMAL) PT AND APTT (06/17/2007 10:42 AM FINANCIAL MARKET DEALER) PROTIME 17.4(H) 12.8 - 15.8 Secs INTERFACE SYSTEM Comment: As of 2007 note change in normal range. INR 1.3 INTERFACE SYSTEM Comment: Expected Values for INR: DVT/PE Goal INR 2.5; range 2.0 - 3.0 Valve Replacement Tissue Goal INR 2.5; range 2.0 - 3.0 Mechanical Goal INR 3.0; range 2.5 - 3.5 POST-SC Goal INR 2.5; range 2.0 - 3.0 or Goal 3.0; range 2.5 - 3.5 Atrial Fibrillation Goal INR 2.5; range 2.0 - 3.0 Ischemic Stroke Goal INR 2.5; range 2.0 - 3.0 For additional information see Guidelines for Anticoagulation available from the pharmacy [facility]. PTT 39.2(H) 21.6 - 35.6 Secs INTERFACE SYSTEM Comment: Therapeutic Range: Hi-level PE/DVT heparin protocol 80.1 -95.0 sec Lo-level PE/DVT heparin protocol 67.1 - 80.0 sec Cardiac Heparin Protocol 67.1 - 85.0 sec Neuro Heparin Protocol 67.1 - 80.0 sec As of 05/17/2006 note change in APTT Normal Range. 06/17/2007 10:4 2 AM FINANCIAL MARKET DEALER Edgar Paige MD HEMATOLOGY ORDERABLES Edit ed Performing Organization Address [facility] Co de Phone Number INTERFACE SYSTEM Refer to clinic/hospital department * (ABNORMAL) POC GLUCOSE (06/17/2007 6:48 AM FINANCIAL MARKET DEALER) Pathologist [facility] GLUCOSE POC 137(H) 60 - 100 mg/dL INTERFACE SYSTEM 06/17/2007 6:48 AM FINANCIAL MARKET DEALER Edgar Paige MD POINT OF CARE TESTING Edit ed Performing Organization Address [facility] Phone Number INTERFACE SYSTEM Refer to clinic/hospital department * (ABNORMAL) BASIC METABOLIC PANEL (06/17/2007 4:45 AM FINANCIAL MARKET DEALER) Pathologist [facility] GLUCOSE 118(H) 70 - 110 mg/dL INTERFACE SYSTEM BUN 3(L) 7 - 17 mg/dL INTERFACE SYSTEM CREATININE 0.5(L) 0.7 - 1.2 mg/dL INTERFACE SYSTEM SODIUM 141 136 - 145 mEq/L INTERFACE SYSTEM POTASSIUM 3.4(L) 3.5 - 5.0 mEq/L INTERFACE SYSTEM CHLORIDE 108 95 - 110 mEq/L INTERFACE SYSTEM CO2 29 22 - 32 mmol/l INTERFACE SYSTEM CALCIUM 8.0(L) 8.4 - 10.5 mg/dL INTERFACE SYSTEM ANION GAP 7(L) 9 - 20 mEq/L INTERFACE SYSTEM OSMOLALITY, CALCULATED 286 275 - 295 mOsm/Kg INTERFACE SYSTEM 06/17/2007 4:45 AM FINANCIAL MARKET DEALER Edgar Paige MD CHEMISTRY ORDERABLES Edite d Performing Organization Address [facility] Phone Number INTERFACE SYSTEM Refer to clinic/hospital department * (ABNORMAL) CBC WITH DIFFERENTIAL (06/17/2007 4:45 AM FINANCIAL MARKET DEALER) Pathologist [facility] WBC 7.6 4.5 - 11.0 K/ul INTERFACE SYSTEM RBC 3.82(L) 4.20 - 5.40 Mil/ul INTERFACE SYSTEM HEMOGLOBIN 10.2(L) 12.0 - 16.0 g/dL INTERFACE SYSTEM HEMATOCRIT 31.2(L) 36.0 - 46.0 % INTERFACE SYSTEM MCV 81.7(L) 84.0 - 103.0 Fl INTERFACE SYSTEM MCH 26.7(L) 27.0 - 34.0 pg INTERFACE SYSTEM MCHC 32.7 30.0 - 35.0 g/dL INTERFACE SYSTEM RDW 13.6 11.0 - 14.5 % INTERFACE SYSTEM PLATELETS 393 140 - 440 K/ul INTERFACE SYSTEM MPV 10.3 8.9 - 12.8 Fl INTERFACE SYSTEM NEUTROPHILS 68.5 42.2 - 75.2 % INTERFACE SYSTEM LYMPHOCYTES 12.7(L) 24.0 - 44.0 % INTERFACE SYSTEM MONOCYTES 8.8 2.0 - 10.0 % INTERFACE SYSTEM EOSINOPHILS 9.6(H) 0.0 - 7.0 % INTERFACE SYSTEM BASOPHILS 0.4 0.0 - 1.0 % INTERFACE SYSTEM NEUTROPHIL ABSOLUTE 5.2 2.0 - 8.0 K/ul INTERFACE SYSTEM LYMPHOCYTE ABSOLUTE 1.0(L) 1.2 - 4.0 K/ul INTERFACE SYSTEM MONOCYTE ABSOLUTE 0.7(H) 0.1 - 0.6 K/ul INTERFACE SYSTEM EOSINOPHIL ABSOLUTE 0.7 0.0 - 0.7 K/ul INTERFACE SYSTEM BASOPHILS ABSOLUTE 0.0 0.0 - 0.2 K/ul INTERFACE SYSTEM 06/17/2007 4:45 AM FINANCIAL MARKET DEALER Edgar Paige MD HEMATOLOGY ORDERABLES Edit ed Performing Organization Address [facility] de Phone Number INTERFACE SYSTEM Refer to clinic/hospital department * (ABNORMAL) POC GLUCOSE (06/16/2007 9:31 PM FINANCIAL MARKET DEALER) GLUCOSE POC 139(H) 60 - 100 mg/dL INTERFACE SYSTEM 06/16/2007 9:31 PM FINANCIAL MARKET DEALER Edgar Paige MD POINT OF CARE TESTING Edit ed Performing Organization Address [facility] de Phone Number INTERFACE SYSTEM Refer to clinic/hospital department * POC GLUCOSE (06/16/2007 5:17 PM FINANCIAL MARKET DEALER) GLUCOSE POC 81 60 - 100 mg/dL INTERFACE SYSTEM 06/16/2007 5:17 PM FINANCIAL MARKET DEALER Edgar Paige MD POINT OF CARE TESTING Edit ed Performing Organization Address [facility] de Phone Number INTERFACE SYSTEM Refer to clinic/hospital department * (ABNORMAL) POC GLUCOSE (06/16/2007 10:38 AM FINANCIAL MARKET DEALER) GLUCOSE POC 129(H) 60 - 100 mg/dL INTERFACE SYSTEM 06/16/2007 10:3 8 AM FINANCIAL MARKET DEALER Edgar Paige MD POINT OF CARE TESTING Edit ed Performing Organization Address City/[facility]/ZIP Co de Phone Number INTERFACE SYSTEM Refer to clinic/hospital department * (ABNORMAL) POC GLUCOSE (06/16/2007 6:02 AM FINANCIAL MARKET DEALER) GLUCOSE POC 115(H) 60 - 100 mg/dL INTERFACE SYSTEM 06/16/2007 6:02 AM FINANCIAL MARKET DEALER Edgar Paige MD POINT OF CARE TESTING Edit ed Performing Organization Address [facility] de Phone Number INTERFACE SYSTEM Refer to clinic/hospital department * (ABNORMAL) COMPREHENSIVE METABOLIC PANEL (06/16/2007 4:00 AM FINANCIAL MARKET DEALER) GLOBULIN (CALC) 2.4 2.4 - 3.9 g/dL INTERFACE SYSTEM ALBUMIN/GLOBULIN RATIO 1.2 1.0 - 2.3 INTERFACE SYSTEM GLUCOSE 127(H) 70 - 110 mg/dL INTERFACE SYSTEM BUN <2(L) 7 - 17 mg/dL INTERFACE SYSTEM CREATININE 0.6(L) 0.7 - 1.2 mg/dL INTERFACE SYSTEM SODIUM 142 136 - 145 mEq/L INTERFACE SYSTEM POTASSIUM 3.1(L) 3.5 - 5.0 mEq/L INTERFACE SYSTEM CHLORIDE 110 95 - 110 mEq/L INTERFACE SYSTEM CO2 28 22 - 32 mmol/l INTERFACE SYSTEM CALCIUM 8.0(L) 8.4 - 10.5 mg/dL INTERFACE SYSTEM TOTAL PROTEIN 5.2(L) 6.3 - 8.2 g/dL INTERFACE SYSTEM ALBUMIN 2.8(L) 3.5 - 5.0 g/dL INTERFACE SYSTEM ALKALINE PHOSPHATASE 67 25 - 100 U/L INTERFACE SYSTEM AST 24 8 - 33 U/L INTERFACE SYSTEM ALT 20 4 - 36 IU/L INTERFACE SYSTEM BILIRUBIN TOTAL 0.2(L) 0.3 - 1.2 mg/dL INTERFACE SYSTEM ANION GAP 7(L) 9 - 20 mEq/L INTERFACE SYSTEM OSMOLALITY, CALCULATED <288 275 - 295 mOsm/Kg INTERFACE SYSTEM 06/16/2007 4:00 AM FINANCIAL MARKET DEALER Edgar Paige MD CHEMISTRY ORDERABLES Edite d Performing Organization Address [facility] de Phone Number INTERFACE SYSTEM Refer to clinic/hospital department * (ABNORMAL) CBC WITH DIFFERENTIAL (06/16/2007 4:00 AM FINANCIAL MARKET DEALER) WBC 6.7 4.5 - 11.0 K/ul INTERFACE SYSTEM RBC 3.67(L) 4.20 - 5.40 Mil/ul INTERFACE SYSTEM HEMOGLOBIN 9.9(L) 12.0 - 16.0 g/dL INTERFACE SYSTEM HEMATOCRIT 30.1(L) 36.0 - 46.0 % INTERFACE SYSTEM MCV 82.0(L) 84.0 - 103.0 Fl INTERFACE SYSTEM MCH 27.0 27.0 - 34.0 pg INTERFACE SYSTEM MCHC 32.9 30.0 - 35.0 g/dL INTERFACE SYSTEM RDW 13.6 11.0 - 14.5 % INTERFACE SYSTEM PLATELETS 386 140 - 440 K/ul INTERFACE SYSTEM MPV 10.1 8.9 - 12.8 Fl INTERFACE SYSTEM NEUTROPHILS 60.8 42.2 - 75.2 % INTERFACE SYSTEM LYMPHOCYTES 15.9(L) 24.0 - 44.0 % INTERFACE SYSTEM MONOCYTES 11.6(H) 2.0 - 10.0 % INTERFACE SYSTEM EOSINOPHILS 11.4(H) 0.0 - 7.0 % INTERFACE SYSTEM BASOPHILS 0.3 0.0 - 1.0 % INTERFACE SYSTEM NEUTROPHIL ABSOLUTE 4.0 2.0 - 8.0 K/ul INTERFACE SYSTEM LYMPHOCYTE ABSOLUTE 1.1(L) 1.2 - 4.0 K/ul INTERFACE SYSTEM MONOCYTE ABSOLUTE 0.8(H) 0.1 - 0.6 K/ul INTERFACE SYSTEM EOSINOPHIL ABSOLUTE 0.8(H) 0.0 - 0.7 K/ul INTERFACE SYSTEM BASOPHILS ABSOLUTE 0.0 0.0 - 0.2 K/ul INTERFACE SYSTEM 06/16/2007 4:00 AM FINANCIAL MARKET DEALER Edgar Paige MD HEMATOLOGY ORDERABLES Edit ed Performing Organization Address [facility] de Phone Number INTERFACE SYSTEM Refer to clinic/hospital department * (ABNORMAL) POC GLUCOSE (06/15/2007 11:01 PM FINANCIAL MARKET DEALER) GLUCOSE POC 136(H) 60 - 100 mg/dL INTERFACE SYSTEM 06/15/2007 11:0 1 PM FINANCIAL MARKET DEALER Edgar Paige MD POINT OF CARE TESTING Edit ed Performing Organization Address [facility] Phone Number INTERFACE SYSTEM Refer to clinic/hospital department * (ABNORMAL) POC GLUCOSE (06/15/2007 5:40 PM FINANCIAL MARKET DEALER) GLUCOSE POC 112(H) 60 - 100 mg/dL INTERFACE SYSTEM 06/15/2007 5:40 PM FINANCIAL MARKET DEALER us Edgar Paige MD POINT OF CARE TESTING Edit ed Performing Organization Address [facility] Phone Number INTERFACE SYSTEM Refer to clinic/hospital department * (ABNORMAL) POC GLUCOSE (06/15/2007 11:40 AM FINANCIAL MARKET DEALER) GLUCOSE POC 129(H) 60 - 100 mg/dL INTERFACE SYSTEM 06/15/2007 11:4 0 AM FINANCIAL MARKET DEALER us Edgar Paige MD POINT OF CARE TESTING Edit ed Performing Organization Address [facility] Phone Number INTERFACE SYSTEM Refer to clinic/hospital department * (ABNORMAL) POC GLUCOSE (06/15/2007 5:46 AM FINANCIAL MARKET DEALER) GLUCOSE POC 137(H) 60 - 100 mg/dL INTERFACE SYSTEM 06/15/2007 5:46 AM FINANCIAL MARKET DEALER us Edgar Paige MD POINT OF CARE TESTING Edit ed Performing Organization Address [facility] de Phone Number INTERFACE SYSTEM Refer to clinic/hospital department * MAGNESIUM LEVEL (06/15/2007 5:31 AM FINANCIAL MARKET DEALER) MAGNESIUM 2.0 1.7 - 2.4 mg/dL INTERFACE SYSTEM 06/15/2007 5:31 AM FINANCIAL MARKET DEALER Edgar Paige MD CHEMISTRY ORDERABLES Edite d Performing Organization Address [facility] Phone Number INTERFACE SYSTEM Refer to clinic/hospital department * (ABNORMAL) BASIC METABOLIC PANEL (06/15/2007 5:31 AM FINANCIAL MARKET DEALER) GLUCOSE 122(H) 70 - 110 mg/dL INTERFACE SYSTEM BUN 2(L) 7 - 17 mg/dL INTERFACE SYSTEM CREATININE 0.6(L) 0.7 - 1.2 mg/dL INTERFACE SYSTEM SODIUM 139 136 - 145 mEq/L INTERFACE SYSTEM POTASSIUM 3.3(L) 3.5 - 5.0 mEq/L INTERFACE SYSTEM CHLORIDE 109 95 - 110 mEq/L INTERFACE SYSTEM CO2 23 22 - 32 mmol/l INTERFACE SYSTEM CALCIUM 8.0(L) 8.4 - 10.5 mg/dL INTERFACE SYSTEM ANION GAP 10 9 - 20 mEq/L INTERFACE SYSTEM OSMOLALITY, CALCULATED 282 275 - 295 mOsm/Kg INTERFACE SYSTEM 06/15/2007 5:31 AM FINANCIAL MARKET DEALER Edgar Paige MD CHEMISTRY ORDERABLES Edite d Performing Organization Address [facility] Phone Number INTERFACE SYSTEM Refer to clinic/hospital department * (ABNORMAL) CBC WITH DIFFERENTIAL (06/15/2007 5:31 AM FINANCIAL MARKET DEALER) WBC 7.1 4.5 - 11.0 K/ul INTERFACE SYSTEM RBC 3.82(L) 4.20 - 5.40 Mil/ul INTERFACE SYSTEM HEMOGLOBIN 10.2(L) 12.0 - 16.0 g/dL INTERFACE SYSTEM HEMATOCRIT 31.7(L) 36.0 - 46.0 % INTERFACE SYSTEM MCV 83.0(L) 84.0 - 103.0 Fl INTERFACE SYSTEM MCH 26.7(L) 27.0 - 34.0 pg INTERFACE SYSTEM MCHC 32.2 30.0 - 35.0 g/dL INTERFACE SYSTEM RDW 13.8 11.0 - 14.5 % INTERFACE SYSTEM PLATELETS 368 140 - 440 K/ul INTERFACE SYSTEM MPV 9.9 8.9 - 12.8 Fl INTERFACE SYSTEM NEUTROPHILS 62.3 42.2 - 75.2 % INTERFACE SYSTEM LYMPHOCYTES 19.5(L) 24.0 - 44.0 % INTERFACE SYSTEM MONOCYTES 11.0(H) 2.0 - 10.0 % INTERFACE SYSTEM EOSINOPHILS 6.8 0.0 - 7.0 % INTERFACE SYSTEM BASOPHILS 0.4 0.0 - 1.0 % INTERFACE SYSTEM NEUTROPHIL ABSOLUTE 4.4 2.0 - 8.0 K/ul INTERFACE SYSTEM LYMPHOCYTE ABSOLUTE 1.4 1.2 - 4.0 K/ul INTERFACE SYSTEM MONOCYTE ABSOLUTE 0.8(H) 0.1 - 0.6 K/ul INTERFACE SYSTEM EOSINOPHIL ABSOLUTE 0.5 0.0 - 0.7 K/ul INTERFACE SYSTEM BASOPHILS ABSOLUTE 0.0 0.0 - 0.2 K/ul INTERFACE SYSTEM 06/15/2007 5:31 AM FINANCIAL MARKET DEALER Edgar Paige MD HEMATOLOGY ORDERABLES Edit ed Performing Organization Address [facility] de Phone Number INTERFACE SYSTEM Refer to clinic/hospital department * (ABNORMAL) POC GLUCOSE (06/14/2007 11:12 PM FINANCIAL MARKET DEALER) GLUCOSE POC 146(H) 60 - 100 mg/dL INTERFACE SYSTEM 06/14/2007 11:1 2 PM FINANCIAL MARKET DEALER Edgar Paige MD POINT OF CARE TESTING Edit ed Performing Organization Address [facility] Co de Phone Number INTERFACE SYSTEM Refer to clinic/hospital department * (ABNORMAL) POC GLUCOSE (06/14/2007 5:43 PM FINANCIAL MARKET DEALER) GLUCOSE POC 131(H) 60 - 100 mg/dL INTERFACE SYSTEM 06/14/2007 5:43 PM FINANCIAL MARKET DEALER Edgar Paige MD POINT OF CARE TESTING Edit ed Performing Organization Address [facility] Co de Phone Number INTERFACE SYSTEM Refer to clinic/hospital department * (ABNORMAL) POC GLUCOSE (06/14/2007 11:01 AM FINANCIAL MARKET DEALER) GLUCOSE POC 130(H) 60 - 100 mg/dL INTERFACE SYSTEM 06/14/2007 11:0 1 AM FINANCIAL MARKET DEALER Edgar Paige MD POINT OF CARE TESTING Edit ed Performing Organization Address [facility] Co de Phone Number INTERFACE SYSTEM Refer to clinic/hospital department * (ABNORMAL) POC GLUCOSE (06/14/2007 6:18 AM FINANCIAL MARKET DEALER) GLUCOSE POC 135(H) 60 - 100 mg/dL INTERFACE SYSTEM 06/14/2007 6:18 AM FINANCIAL MARKET DEALER Edgar Paige MD POINT OF CARE TESTING Edit ed Performing Organization Address [facility] de Phone Number INTERFACE SYSTEM Refer to clinic/hospital department * (ABNORMAL) CBC WITH DIFFERENTIAL (06/14/2007 4:08 AM FINANCIAL MARKET DEALER) WBC 7.0 4.5 - 11.0 K/ul INTERFACE SYSTEM RBC 3.62(L) 4.20 - 5.40 Mil/ul INTERFACE SYSTEM HEMOGLOBIN 9.7(L) 12.0 - 16.0 g/dL INTERFACE SYSTEM HEMATOCRIT 29.9(L) 36.0 - 46.0 % INTERFACE SYSTEM MCV 82.6(L) 84.0 - 103.0 Fl INTERFACE SYSTEM MCH 26.8(L) 27.0 - 34.0 pg INTERFACE SYSTEM MCHC 32.4 30.0 - 35.0 g/dL INTERFACE SYSTEM RDW 13.7 11.0 - 14.5 % INTERFACE SYSTEM PLATELETS 380 140 - 440 K/ul INTERFACE SYSTEM MPV 10.0 8.9 - 12.8 Fl INTERFACE SYSTEM NEUTROPHILS 70.6 42.2 - 75.2 % INTERFACE SYSTEM LYMPHOCYTES 13.0(L) 24.0 - 44.0 % INTERFACE SYSTEM MONOCYTES 11.4(H) 2.0 - 10.0 % INTERFACE SYSTEM EOSINOPHILS 4.7 0.0 - 7.0 % INTERFACE SYSTEM BASOPHILS 0.3 0.0 - 1.0 % INTERFACE SYSTEM NEUTROPHIL ABSOLUTE 4.9 2.0 - 8.0 K/ul INTERFACE SYSTEM LYMPHOCYTE ABSOLUTE 0.9(L) 1.2 - 4.0 K/ul INTERFACE SYSTEM MONOCYTE ABSOLUTE 0.8(H) 0.1 - 0.6 K/ul INTERFACE SYSTEM EOSINOPHIL ABSOLUTE 0.3 0.0 - 0.7 K/ul INTERFACE SYSTEM BASOPHILS ABSOLUTE 0.0 0.0 - 0.2 K/ul INTERFACE SYSTEM 06/14/2007 4:08 AM FINANCIAL MARKET DEALER Edgar Paige MD HEMATOLOGY ORDERABLES Edit ed Performing Organization Address [facility] Phone Number INTERFACE SYSTEM Refer to clinic/hospital department * MAGNESIUM LEVEL (06/14/2007 4:08 AM FINANCIAL MARKET DEALER) MAGNESIUM 2.2 1.7 - 2.4 mg/dL INTERFACE SYSTEM 06/14/2007 4:08 AM FINANCIAL MARKET DEALER Edgar Paige MD CHEMISTRY ORDERABLES Edite d Performing Organization Address [facility] Phone Number INTERFACE SYSTEM Refer to clinic/hospital department * (ABNORMAL) BASIC METABOLIC PANEL (06/14/2007 4:08 AM FINANCIAL MARKET DEALER) GLUCOSE 124(H) 70 - 110 mg/dL INTERFACE SYSTEM BUN 3(L) 7 - 17 mg/dL INTERFACE SYSTEM CREATININE 0.5(L) 0.7 - 1.2 mg/dL INTERFACE SYSTEM SODIUM 141 136 - 145 mEq/L INTERFACE SYSTEM POTASSIUM 3.8 3.5 - 5.0 mEq/L INTERFACE SYSTEM Comment:Specimen slightly he molyzed CHLORIDE 110 95 - 110 mEq/L INTERFACE SYSTEM CO2 26 22 - 32 mmol/l INTERFACE SYSTEM CALCIUM 8.1(L) 8.4 - 10.5 mg/dL INTERFACE SYSTEM ANION GAP 9 9 - 20 mEq/L INTERFACE SYSTEM OSMOLALITY, CALCULATED 287 275 - 295 mOsm/Kg INTERFACE SYSTEM 06/14/2007 4:08 AM FINANCIAL MARKET DEALER Edgar Paige MD CHEMISTRY ORDERABLES Edite d Performing Organization Address [facility] Phone Number INTERFACE SYSTEM Refer to clinic/hospital department * (ABNORMAL) POC GLUCOSE (06/13/2007 11:24 PM FINANCIAL MARKET DEALER) GLUCOSE POC 170(H) 60 - 100 mg/dL INTERFACE SYSTEM 06/13/2007 11:2 4 PM FINANCIAL MARKET DEALER us Edgar Paige MD POINT OF CARE TESTING Edit ed Performing Organization Address [facility] Phone Number INTERFACE SYSTEM Refer to clinic/hospital department * (ABNORMAL) POC GLUCOSE (06/13/2007 5:39 PM FINANCIAL MARKET DEALER) GLUCOSE POC 149(H) 60 - 100 mg/dL INTERFACE SYSTEM 06/13/2007 5:39 PM FINANCIAL MARKET DEALER us Edgar Paige MD POINT OF CARE TESTING Edit ed Performing Organization Address [facility] Phone Number INTERFACE SYSTEM Refer to clinic/hospital department * (ABNORMAL) POC GLUCOSE (06/13/2007 11:49 AM FINANCIAL MARKET DEALER) GLUCOSE POC 155(H) 60 - 100 mg/dL INTERFACE SYSTEM 06/13/2007 11:4 9 AM FINANCIAL MARKET DEALER us Edgar Paige MD POINT OF CARE TESTING Edit ed Performing Organization Address [facility] Phone Number INTERFACE SYSTEM Refer to clinic/hospital department * (ABNORMAL) POC GLUCOSE (06/13/2007 5:31 AM FINANCIAL MARKET DEALER) GLUCOSE POC 138(H) 60 - 100 mg/dL INTERFACE SYSTEM 06/13/2007 5:31 AM FINANCIAL MARKET DEALER us Edgar Paige MD POINT OF CARE TESTING Edit ed Performing Organization Address [facility] Phone Number INTERFACE SYSTEM Refer to clinic/hospital department * MAGNESIUM LEVEL (06/13/2007 3:23 AM FINANCIAL MARKET DEALER) MAGNESIUM 2.1 1.7 - 2.4 mg/dL INTERFACE SYSTEM 06/13/2007 3:23 AM FINANCIAL MARKET DEALER us Edgar Paige MD CHEMISTRY ORDERABLES Edite d Performing Organization Address [facility] Phone Number INTERFACE SYSTEM Refer to clinic/hospital department * (ABNORMAL) BASIC METABOLIC PANEL (06/13/2007 3:23 AM FINANCIAL MARKET DEALER) Pathologist [facility] GLUCOSE 141(H) 70 - 110 mg/dL INTERFACE SYSTEM BUN 6(L) 7 - 17 mg/dL INTERFACE SYSTEM CREATININE 0.7 0.7 - 1.2 mg/dL INTERFACE SYSTEM SODIUM 140 136 - 145 mEq/L INTERFACE SYSTEM POTASSIUM 3.3(L) 3.5 - 5.0 mEq/L INTERFACE SYSTEM CALCIUM 7.8(L) 8.4 - 10.5 mg/dL INTERFACE SYSTEM OSMOLALITY, CALCULATED 287 275 - 295 mOsm/Kg INTERFACE SYSTEM CHLORIDE 107 95 - 110 mEq/L INTERFACE SYSTEM CO2 29 22 - 32 mmol/l INTERFACE SYSTEM ANION GAP 7(L) 9 - 20 mEq/L INTERFACE SYSTEM 06/13/2007 3:23 AM FINANCIAL MARKET DEALER Edgar Paige MD CHEMISTRY ORDERABLES Edite d Performing Organization Address [facility] Phone Number INTERFACE SYSTEM Refer to clinic/hospital department * (ABNORMAL) CBC WITH DIFFERENTIAL (06/13/2007 3:23 AM FINANCIAL MARKET DEALER) Pathologist [facility] WBC 9.1 4.5 - 11.0 K/ul INTERFACE SYSTEM RBC 3.92(L) 4.20 - 5.40 Mil/ul INTERFACE SYSTEM HEMOGLOBIN 10.4(L) 12.0 - 16.0 g/dL INTERFACE SYSTEM HEMATOCRIT 31.9(L) 36.0 - 46.0 % INTERFACE SYSTEM MCV 81.4(L) 84.0 - 103.0 Fl INTERFACE SYSTEM MCH 26.5(L) 27.0 - 34.0 pg INTERFACE SYSTEM MCHC 32.6 30.0 - 35.0 g/dL INTERFACE SYSTEM RDW 13.6 11.0 - 14.5 % INTERFACE SYSTEM PLATELETS 362 140 - 440 K/ul INTERFACE SYSTEM MPV 10.0 8.9 - 12.8 Fl INTERFACE SYSTEM NEUTROPHILS 75.2 42.2 - 75.2 % INTERFACE SYSTEM LYMPHOCYTES 10.5(L) 24.0 - 44.0 % INTERFACE SYSTEM MONOCYTES 12.6(H) 2.0 - 10.0 % INTERFACE SYSTEM EOSINOPHILS 1.6 0.0 - 7.0 % INTERFACE SYSTEM BASOPHILS 0.1 0.0 - 1.0 % INTERFACE SYSTEM NEUTROPHIL ABSOLUTE 6.8 2.0 - 8.0 K/ul INTERFACE SYSTEM LYMPHOCYTE ABSOLUTE 1.0(L) 1.2 - 4.0 K/ul INTERFACE SYSTEM MONOCYTE ABSOLUTE 1.2(H) 0.1 - 0.6 K/ul INTERFACE SYSTEM EOSINOPHIL ABSOLUTE 0.2 0.0 - 0.7 K/ul INTERFACE SYSTEM BASOPHILS ABSOLUTE 0.0 0.0 - 0.2 K/ul INTERFACE SYSTEM 06/13/2007 3:23 AM FINANCIAL MARKET DEALER us Edgar Paige MD HEMATOLOGY ORDERABLES Edit ed Performing Organization Address [facility] Phone Number INTERFACE SYSTEM Refer to clinic/hospital department * (ABNORMAL) POC GLUCOSE (06/13/2007 12:27 AM FINANCIAL MARKET DEALER) GLUCOSE POC 186(H) 60 - 100 mg/dL INTERFACE SYSTEM 06/13/2007 12:2 7 AM FINANCIAL MARKET DEALER us dEgar Paige MD POINT OF CARE TESTING Edit ed Performing Organization Address [facility] Phone Number INTERFACE SYSTEM Refer to clinic/hospital department * (ABNORMAL) URINALYSIS MICROSCOPY ONLY (06/12/2007 9:46 PM FINANCIAL MARKET DEALER) WBC URINE 16-25(A) 0 - 2 INTERFACE SYSTEM RBC UA 3-5(A) 0 - 2 INTERFACE SYSTEM HYALINE CAST None Seen 0 - 2 INTERFA CE SYSTEM BACTERIA UA Moderate(A ) None Seen INTERFACE SYSTEM 06/12/2007 9:46 PM FINANCIAL MARKET DEALER us Edgar Paige MD URINE ORDERABLES Edited Performing Organization Address [facility] Phone Number INTERFACE SYSTEM Refer to clinic/hospital department * ICTOTEST (06/12/2007 9:46 PM FINANCIAL MARKET DEALER) ICTO Negative Negative INTERFACE SYSTEM 06/12/2007 9:46 PM FINANCIAL MARKET DEALER Edgar Paige MD URINE ORDERABLES Edited Performing Organization Address [facility] Phone Number INTERFACE SYSTEM Refer to clinic/hospital department * (ABNORMAL) ACETONE QUALITATIVE, URINE (06/12/2007 9:46 PM FINANCIAL MARKET DEALER) KETONES UA Moderate(A ) Negative INTERFACE SYSTEM 06/12/2007 9:46 PM FINANCIAL MARKET DEALER Edgar Paige MD URINE ORDERABLES Edited Performing Organization Address [facility] Phone Number INTERFACE SYSTEM Refer to clinic/hospital department * (ABNORMAL) URINALYSIS (06/12/2007 9:46 PM FINANCIAL MARKET DEALER) COLOR UA Yellow Straw INTERFACE SYSTEM CLARITY UA Clear Clear INTERFACE SYSTEM LEUKOCYTE ESTERASE UA NEGATIVE NEGATIVE INTERFACE SYSTEM NITRITE UA NEGATIVE NEGATIVE INTERFACE SYSTEM PH UA 6.0 5.0 - 9.0 INTERFACE SYSTEM PROTEIN UA 30 mg/dl(A) NEGATIVE INTERFA CE SYSTEM GLUCOSE UA NEGATIVE NEGATIVE INTERFACE SYSTEM UROBILINOGEN UA 0.2 0.2 INTE RFACE SYSTEM BLOOD UA MODERATE(A) NEGATIVE INTERFAC E SYSTEM SPECIFIC GRAVITY UA 1.020 <=1.005 INTERFACE SYSTEM MICRO EXAM Yes(A) No INTERFACE SYSTEM 06/12/2007 9:46 PM FINANCIAL MARKET DEALER Result [facility] Edgar Paige MD URINE ORDERABLES Edited Performing Organization Address [facility] Phone Number INTERFACE SYSTEM Refer to clinic/hospital department * CT LIMITED LOCALIZED F/U STUDY (06/12/2007 7:15 PM FINANCIAL MARKET DEALER) Anatomical Region Laterality Modality Other 06/12/2007 7:15 PM FINANCIAL MARKET DEALER Narrative 06/12/2007 7:[address] aspiration. Clinical Indication: 41-year-old female patient status post mesh repair of a ventral hernia,postoperatively there is a fluid collection and surgery has submitted a request for aspiration. Procedures: 1. Supervision of moderate conscious intravenous sedation with fentanyl and Versed. 2. CT-guided needle tip placement and subsequent aspiration. Procedures in detail: The indications, alternatives, risks and benefits have been discussed, and thepatient signed the informed written consent. With CT guidance, moderate conscious intravenoussedation, sterile technique and local anesthesia, first a Yueh needle and subsequently a 17-gaugeneedle, were used from a right anterior oblique approach, to access the large abdominal fluidcollection. Approximately 250 mL of yellow fluid was aspirated (it was not thick pus). Specimenwere sent for laboratory analysis. The needle was removed and hemostasis was obtained. As per thesurgery request, catheter placement will be pending the laboratory outcome. There were nocomplications. The estimated blood loss is minimal. Impression: Successful aspiration of the abdominal fluid collection, specimen have been sent foranalysis. - Dictated By: Ke Ty M.D. Electronically Signed By: Ke Ty M.D. Date Signed: 06/17/07 ZI Procedure Note 05/02/2009 CT aspiration. Clinical Indication: 41-year-old female patient status post mesh repair of a ventralhernia,postoperatively there is a fluid collection and surgery has submitted a request for aspiration. Procedures: 1. Supervision of moderate conscious intravenous sedation with fentanyland Versed. 2. CT-guided needle tip placement and subsequent aspiration. Procedures in detail: The indications, alternatives, risks and benefits have been discussed, andthepatient signed the informed written consent. With CT guidance, moderate consciousintravenoussedation, sterile technique and local anesthesia, first a Yueh needle and subsequently a 17-gaugeneedle, wereused from a right anterior oblique approach, to access the large abdominal fluidcollection.Approximately 250 mL of yellow fluid was aspirated (it was not thick pus). Specimenwere sent for laboratoryanalysis. The needle was removed and hemostasis was obtained. As per thesurgery request, catheter placementwill be pending the laboratory outcome. There were nocomplications. The estimated blood loss is minimal. Impression: Successful aspiration of the abdominal fluid collection, specimen havebeen sent foranalysis. - Dictated By: Ke Ty M.D. Electronically Signed By: Ke Ty M.D. Date Signed: 06/17/07 ZI us Edgar Paige MD CT ORDERABLES Final Resu lt * CT RENAL COLIC WO CONT (06/12/2007 7:15 PM FINANCIAL MARKET DEALER) Anatomical Region Laterality Modality Abdomen Other 06/12/2007 7:15 PM FINANCIAL MARKET DEALER Narrative 06/12/2007 7:15 PM FINANCIAL MARKET DEALER Exam: CT Renal ColicDate/Time of Exam: Jun 17, 2007 8:08:45 AMHistory: Please see order comments. Contiguous thin section images were obtained of the abdomen and pelvis without the administration ofIV or oral contrast. A renal stone protocol was utilized. Coronal and sagittal reconstructed imageswere generated. No IV contrast. Comparison CT scans of the abdomen and pelvis are dated 05/30/2007nd 04/24/2007. The visualized portion of the liver shows homogeneous density without bile duct dilatation. Thegallbladder is surgically absent. The spleen, pancreas and adrenal glands appear normal. Thekidneys are symmetric in size without hydronephrosis or calculi. There is no sign of obstructiveuropathy. There is a trace to small right pleural effusion that is only partially visualized. Thereis a marked amount of loculated fluid along the anterior abdominal wall in the region of the meshrepair of the ventral abdominal wall hernia. This fluid collection measures 24 cm in coronaldiameter x 5.5 cm in AP dimension x 18.5 cm in the craniocaudal dimension. Fluid is identifiedinsinuating adjacent to the right-sided sigmoid colon and rectum. The inferior aspect of thesurgical mesh repair appears displaced posteriorly from the anterior abdominal wall that mayrepresent dehiscence in the region of the ventral abdominal wall hernia. There is herniated omentalfat and fluid that is relatively unchanged when compared to the prior examination. The urinarybladder is decompressed by a Voss catheter, but does have air within the bladder. There isthickening of the transverse colon and splenic flexure possibly secondary to inflammation withinthis region. There appears to be thickening of several small bowel loops within this region as well. There is nodefinite free air. Review of the osseous structures reveals no significant abnormalities. Summary: 1. Large amount of fluid partially loculated in the region of the mesh hernia repair as described. Although no foci of air are identified within the fluid collection, developing abscess is notexcluded. 2. Relatively unchanged ventral abdominal wall hernia with herniated omental fat and fluid. Theinferior aspect of the surgical mesh appears displaced posteriorly possibly representingdehiscence. 3. Thickening of small bowel loops and colon within the left upper quadrant possibly secondary toinflammation. 4. Cholecystectomy. Hysterectomy. Appendectomy. 5. Air within the urinary bladder likely secondary to the presence of a Voss catheter. The urinarybladder is decompressed. - Dictated By: Lamont Saavedra Jr., M.D. Electronically Signed By: Lamont Saavedra Jr., M.D.MD Date Signed: 06/17/07 Procedure Note 05/02/2009 Exam: CT Renal ColicDate/Time of Exam: Jun 17, 2007 8:08:45 AMHistory: Please see order comments. Contiguous thin section images were obtained of the abdomen and pelviswithout the administration ofIV or oral contrast. A renal stone protocol was utilized. Coronal and sagittalreconstructed imageswere generated. No IV contrast. Comparison CT scans of the abdomen and pelvisare dated 05/30/2007nd 04/24/2007. The visualized portion of the liver shows homogeneous density without bileduct dilatation. Thegallbladder is surgically absent. The spleen, pancreas and adrenalglands appear normal. Thekidneys are symmetric in size without hydronephrosis or calculi. There is no signof obstructiveuropathy. There is a trace to small right pleural effusion that is only partiallyvisualized. Thereis a marked amount of loculated fluid along the anterior abdominal wall in the region of themeshrepair of the ventral abdominal wall hernia. This fluid collection measures 24 cm incoronaldiameter x 5.5 cm in AP dimension x 18.5 cm in the craniocaudal dimension. Fluid is identifiedinsinuatingadjacent to the right-sided sigmoid colon and rectum. The inferior aspect of thesurgical mesh repairappears displaced posteriorly from the anterior abdominal wall that mayrepresent dehiscence in theregion of the ventral abdominal wall hernia. There is herniated omentalfat and fluid that is relativelyunchanged when compared to the prior examination. The urinarybladder is decompressed by a Voss catheter, butdoes have air within the bladder. There isthickening of the transverse colon and splenic flexurepossibly secondary to inflammation withinthis region. There appears to be thickening of several small bowel loops within thisregion as well. There is nodefinite free air. Review of the osseous structures reveals nosignificant abnormalities. Summary: 1. Large amount of fluid partially loculated in the region of the meshhernia repair as described. Although no foci of air are identified within the fluid collection,developing abscess is notexcluded. 2. Relatively unchanged ventral abdominal wall hernia with herniatedomental fat and fluid. Theinferior aspect of the surgical mesh appears displaced posteriorly possiblyrepresentingdehiscence. 3. Thickening of small bowel loops and colon within the left upperquadrant possibly secondary toinflammation. 4. Cholecystectomy. Hysterectomy. Appendectomy. 5. Air within the urinary bladder likely secondary to the presence of aFoley catheter. The urinarybladder is decompressed. - Dictated By: Lamont Saavedra Jr., M.D. Electronically Signed By: Lamont Saavedra Jr., M.D.MD Date Signed: 06/17/07 us Antoine Reynolds MD CT ORDERABLES Final Result * XR CHEST PA AND LATERAL (06/12/2007 7:15 PM FINANCIAL MARKET DEALER) Anatomical Region Laterality Modality Chest Other 06/12/2007 7:15 PM FINANCIAL MARKET DEALER Narrative 06/12/2007 7:15 PM FINANCIAL MARKET DEALER Heart size is normal. Abnormal attenuation in the inferior aspect of the right upper lobe, alongthe minor fissure and hazy increased attenuation at the right lung base and blunting of the rightcostophrenic angle. Mild blunting at the left costophrenic angle. No acute osseous abnormality. Impression: 1. Right mid and basilar infiltrates and/or atelectasis and bilateral effusions, greater on theright. - Dictated By: Anirudh Massey M.D. Electronically Signed By: Anirudh Massey M.D. Date Signed: 06/18/07 AMA Procedure Note 05/02/2009 Heart size is normal. Abnormal attenuation in the inferior aspect of theright upper lobe, alongthe minor fissure and hazy increased attenuation at the right lung base andblunting of the rightcostophrenic angle. Mild blunting at the left costophrenic angle. No acute osseousabnormality. Impression: 1. Right mid and basilar infiltrates and/or atelectasis and bilateraleffusions, greater on theright. - Dictated By: Anirudh Massey M.D. Electronically Signed By: Anirudh Massey M.D. Date Signed: 06/18/07 AMA us Edgar Paige MD DIAGNOSTIC IMAGING ORDERAB LES Final Result documented in this encounter Visit Diagnoses Not on filedocumented in this encounter Care Teams Security Services Manager Relationship Specialty Start Date End Date Jaiden Schulte MD [address] [place] [address] PCP - General 04/24/07 documented as of this encounter
--- OUTSIDE RECORDS SUMMARY | 2024-12-21 21:13 | XMS_ITS | Encounter Summary ---
Author Organization [facility] Address [address] [place] [address] Care Team Providers Care Airplane Mechanic Apprentice Name Role Phone Jaiden Schulte MD Primary Care Provider Encounter Details Date Type Department Care Team (Late st Contact Info) Description 05/16/2007 Outpatient Historical [address] [phone] Social History Tobacco Use Types Packs/Day Years Used Date Smoking Tobacco: Never Assessed Comments Unknown Sex and Gender Information Value Date Recorded Sex Assigned at Not on file Legal Sex Female 4:50 AM BACK TENDER Gender Identity Not on file Sexual Orientation Not on file documented as of this encounter Plan of Treatment Not on file documented as of this encounter Visit Diagnoses Not on filedocumented in this encounter Care Teams Airplane Mechanic Apprentice Relationship Specialty Start Date End Date Jaiden Schulte MD [address] [place] [address] PCP - General 04/24/07 documented as of this encounter
--- OUTSIDE RECORDS SUMMARY | 2024-12-21 21:13 | XMS_ITS | Encounter Summary ---
Author Organization [facility] Address [address] [place] [address] Care Team Providers Care Purchasing Assistant Name Role Phone Jaiden Schulte MD Primary Care Provider Encounter Details Date Type Department Care Team (Latest Contact Info) Description 10/24/2000 Outpatient Historical [address] [phone] Felicitas Everett MD [address] [place] [address], [id number] Esophageal reflux (Primary Dx); Sprain of ankle, unspecified site; Abnormal weight gain Social History Tobacco Use Types Packs/Day Years Used Date Smoking Tobacco: Never Assessed Comments Unknown Sex and Gender Information Value Date Recorded Sex Assigned at Not on file 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
--- OUTSIDE RECORDS SUMMARY | 2024-12-21 21:13 | XMS_ITS | Encounter Summary ---
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
--- OUTSIDE RECORDS SUMMARY | 2024-12-21 21:13 | XMS_ITS | Clinical Summary ---
Author Organization [facility] Address [address] [place] [address] Dr. Freemann: Epic Prelude ADT TRIPP [place]AN[place] [address] Care Team Providers Care Welfare Officer Name Role Phone Jaiden Schulte MD Primary Care Provider Allergies No known active allergies Active Problems Problem Noted Date Diagnosed Date Epilepsy Fever GERD (gastroesophageal reflux disease) Immunizations Immunization Administration Dates Next Due (TDVAX)(7 YRS UP) TETANUS AN D DIPHTHERIA TOXOIDS, ADSORBED (2 LF OF TETANUS TOXOID AND 2 LF OF DIPHTHERIA TOXOID), 0.5ML (PF), IM 12/16/1999 Social History Tobacco Use Types Packs/Day Years Used Date Smoking Tobacco: Never Alcohol Use Standard Drinks/Week Comments No 0 (1 standard drink = 0.6 oz pur e alcohol) Comments Unknown Sex and Gender Information Value Date Recorded Sex Assigned at Not on file 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 Gender Identity Not on file Sexual Orientation Not on file Plan of Treatment Health Maintenance Due Date Last Done Comments HEPATITIS B VACCINES (1 of 3 - 19+ 3-dose series) 11/10 HPV/Cotest (21-29) 12/02/1988 CERVICAL CANCER SCREENING 12/02/1997 HPV/Cotest (30-65) 12/02/1997 PAP SMEAR 12/02/1997 DTAP/TDAP/TD VACCINES (1 - Tdap) 12/17/1999 12/16/19 00 BREAST CANCER SCREENING 2007 COLORECTAL SCREENING 12/02/2012 Colorectal Cancer Screening 12/02/2012 FIT-DNA Q 3 years 12/02/2012 FIT/FOBT Q 1 year 12/02/2012 Flex Sig/CT Colonography Q 5 years 12/02/2012 ZOSTER VACCINE (1 of 2) 12/02/2017 INFLUENZA VACCINE (#1) 2025 Care Teams Welfare Officer Relationship Specialty Start Date End Date Jaiden Schulte MD [address] [place] [address] PCP - General 04/24/07
--- OUTSIDE RECORDS SUMMARY | 2024-12-21 21:13 | XMS_ITS | Encounter Summary ---
Author Organization [facility] Address [address] Attn: [place] [address] Care Team Providers Care Gravity Prospecting Operator Helper Name Role Phone Jaiden Schulte MD Primary Care Provider Encounter Details Date Type Department Care Team (Late st Contact Info) Description 12/19/1999 Outpatient Historical Lynsey Arechiga MD [address] [place] [address] Social History Tobacco Use Types Packs/Day Years Used Date Smoking Tobacco: Never Assessed Comments Unknown Sex and Gender Information Value Date Recorded Sex Assigned at Not on file Legal 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
--- OUTSIDE RECORDS SUMMARY | 2024-12-21 21:13 | XMS_ITS | Encounter Summary ---
Author Organization [facility] Address [address] [place] [address] Care Team Providers Care Aboriginal Community Council Member Name Role Phone Jaiden Schulte MD Primary Care Provider Encounter Details Date Type Department Care Team (Late st Contact Info) Description 05/13/2007 Outpatient Historical [facility] Gen Spec Surg [address] [place] [phone] Edgar Paige MD NO ADDRESS ON FILE Social History Tobacco Use Types Packs/Day Years Used Date Smoking Tobacco: Never Assessed Comments Unknown Sex and Gender Information Value Date Recorded Sex Assigned at Not on file Legal Sex Female 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
--- OUTSIDE RECORDS SUMMARY | 2024-12-21 21:13 | XMS_ITS | Encounter Summary ---
Author Organization [facility] Address [address] [place] [address] Attn: [place] [address] Care Team Providers Care Gasoline Pump Installer Name Role Phone Jaiden Schulte MD Primary Care Provider Encounter Details Date Type Department Care Team (Late st Contact Info) Description 09/14/2000 Outpatient Historical Felicitas Everett MD 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
--- OUTSIDE RECORDS SUMMARY | 2024-12-21 21:13 | XMS_ITS | Encounter Summary ---
Author Organization [facility] Address [address] [place] [address] Care Team Providers Care Brass Pickler Name Role Phone Jaiden Schulte MD Primary Care Provider [phone] Encounter Details Date Type Department Care Team (Latest Contact Info) Description 04/23/2002 Outpatient Historical [facility] [address] [place] [address] Jaiden Schulte MD [address] [place] [phone] CERVICAL DISC DEGEN (Primary Dx) Social History Tobacco Use Types Packs/Day Years Used Date Smoking Tobacco: Never Assessed Comments Unknown Sex and Gender Information Value Date Recorded Sex Assigned at Not on file 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
--- OUTSIDE RECORDS SUMMARY | 2024-12-21 21:13 | XMS_ITS | Encounter Summary ---
Author Organization [facility] Address [address] [place] [address] Attn: [place] [address] Care Team Providers Care Candy Wrapping Machine Operator Name Role Phone Jaiden Schulte MD Primary Care Provider Encounter Details Date Type Department Care Team (Late st Contact Info) Description 03/26/2000 Outpatient Historical Felicitas Everett MD 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
--- OUTSIDE RECORDS SUMMARY | 2024-12-21 21:13 | XMS_ITS | Patient Health Record ---
Author Organization [facility] Address [address] [place], [place] [address] Care Team Providers Care Metal Sander And Finisher Name Role Phone Andreina MINER, Yane Primary Care Provider Unavailzenia Lennon MD, Chris Unavailable [phone] Annie King Unavailable [phone] Allergies Allergen (clinical drug ingredient) Drug/Non Drug Allergy documented on EMR Reaction Allergy Type Onset Date Status sulfa (uncoded) edema Allergy Acti ve sulfamethoxazole / trimethoprim Bactrim Unknown Drug Allergy Active codeine codeine Unknown Drug Allergy Active Reason For Referral No Information Medications Medication SIG (Take, Route, Frequency, Duration) Notes Start Date End Date Status estradiol 0.5 mg 1 tab orally once a day Active baclofen 10 mg 1 tab po orally Q8H prn spasm Active Narcan 4 mg/0.1 mL as directed intranasally once 06/23/2021 Active lamoTRIgine 25 mg 1 tab(s) orally 3 times a day for 30 days 03/27/2024 Active pantoprazole 40 mg 1 tab orally once a day Active rosuvastatin 10 mg 1 tab orally once a day Active promethazine 25 mg 1 tab(s) orally ever y 6 hours 06/20/2022 Active acetaminophen-hydrocod one 325 mg-10 mg 1-2 tabs orally Q4-6H prn pain (max 6/day; hold within 4H of planned sleep) for 28 days Do not fill prior to 11/06/24. ICD-10: G89.29 11/04/2024 Active Trulance 3 mg 1 tab orally once a day Active SUMAtriptan 25 mg 1 tab orally once a day as needed for migraine Active acetaminophen-hydrocod one 325 mg-10 mg 1-2 tabs orally Q4-6H prn pain (max 6/day; hold within 4H of planned sleep) for 28 days Do not fill prior to 11/2624. ICD-10: G89.29 11/04/2024 Active Unisom Sleep Gels 50 mg 1 cap orally as directed Active acetaminophen-hydrocod one 325 mg-10 mg 1-2 tabs orally Q4-6H prn pain (max 6/day; hold within 4H of planned sleep) for 28 days Do not fill prior to 01/01/25. ICD-10: G89.29 11/04/2024 Active Social History Tobacco Use: Social History Observation Description Date Details (start date - stop date) Never Smoker NA - NA Tobacco use: Question Answer Notes : nonsmoker AUDIT-C (Standard) Question Answer Notes Did you have a drink containing alcohol in the p ast year? No Points 0 Interpretation Negative Problems Problem Type SNOMED Code ICD Code Onset Dates Problem Status W/U Status Risk Notes Problem Spasm (14039254) Muscle spasm (728.85) Active confirmed Problem Hypersomnia (56679948) Hypersomnia (780.54) Active confirmed Problem Sleep dysfunction with sleep stage disturbance (233979681) Dysfunctions associated with sleep stages or arousal from sleep (780.56) Active confirmed Problem Neck pain (29229495) Neck pain (723.1) Active confirmed Problem Long-term drug therapy (577734236) LONG-TERM USE MEDS NEC (V58.69) Active confirmed R/O substance abuse Problem Headache (16653027) Headache (784.0) Active confirmed Problem Displacement of cervical intervertebral disc without myelopathy (51402716) Cervical (w/out myelopathy) intervertebral disc disorder (722.0) Active confirmed Problem High risk drug monitoring status (986053907) 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 salvage processor (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) use of opiate analgesic (Z79.891) Active confirmed Problem Enthesopathy (97162710) Enthesopathy, unspecified (M77.9) Active confirmed Problem Hypersomnia (18280563) Hypersomnia, unspecified (G47.10) Active confirmed Problem Sleep disorder (01846317) Other sleep disorders (G47.8) Active confirmed Problem Chronic pain (23077795) Other chronic pain (G89.29) Active confirmed Problem Essential hypertension (11846694) Essential (primary) hypertension (I10) Active confirmed Problem Cervical spondylosis without myelopathy (631090596) Spondylosis without myelopathy or radiculopathy, cervical region (M47.812) Active confirmed Problem Spinal stenosis in cervical region (28836567) Spinal stenosis, cervical region (M48.02) Active confirmed Problem Cervical radiculopathy (44439644) Cervical disc disorder with radiculopathy, unspecified cervical region (M50.10) Active confirmed Problem Cervical disc disorder with radiculopathy (949685425) Cervical disc disorder with radiculopathy, mid-cervical region (M50.12) Active confirmed Problem Cervicalgia (33062305) Cervicalgia (M54.2) Active confirmed Problem Lateral epicondylitis (693689322) Lateral epicondylitis, right elbow (M77.11) Active confirmed Problem Myalgia (60351213) Myalgia (M79.1) Active confirmed Problem Headache (62370328) Headache (R51) Active confirmed Problem Long-term current use of drug therapy (550343303) Other wood sawyer (current) drug therapy (Z79.899) Active confirmed Problem Myalgia (04354332) Myalgia of auxiliary muscles, head and neck (M79.12) Active confirmed Problem Headache (59527078) Headache, unspecified (R51.9) Active confirmed Vital Signs Temperature 97.7 degrees Fahrenheit 11/04/2024 Oximetry 97 % 11/04/2024 Blood pressure diastolic 92 mm Hg 11/04/2024 Height 62 in 11/04/2024 Blood pressure systolic 124 mm Hg 11/04/2024 Weight 185.2 lbs 11/04/2024 BMI 33.87 kg/m2 11/04/2024 Encounters Encounter Location Date Provider [facility] [address] [place], [place] [id number] 01/24/2024 Annie Urbina Cervicalgia M54.2 ; Other chronic pain G89.29 ; Myalgia of auxiliary muscles, head and neck M79.12 ; Headache, unspecified R51.9 and Other sleep disorders G47.8 [facility], [facility] [address] [place], [place] [id number] 03/27/2024 Chris Lennon Cervicalgia M54.2 ; Other chronic pain G89.29 ; Myalgia of auxiliary muscles, head and neck M79.12 ; Headache, unspecified R51.9 and Other sleep disorders G47.8 [facility] [address] [place], [place] [id number] 05/22/2024 Chris Lennon Cervicalgia M54.2 ; Other chronic pain G89.29 ; Myalgia of auxiliary muscles, head and neck M79.12 ; Headache, unspecified R51.9 and Other sleep disorders G47.8 [facility] [address] [place], [place] [id number] 07/17/2024 Chris Lennon Cervicalgia M54.2 ; Other chronic pain G89.29 ; Myalgia of auxiliary muscles, head and neck M79.12 ; Headache, unspecified R51.9 and Other sleep disorders G47.8 [facility], [facility] [address] [place], [place] [id number] 09/09/2024 Chris Lennon Cervicalgia M54.2 ; Other chronic pain G89.29 and Other sleep disorders G47.8 [facility], [facility] [address] [place], [place] [id number] 11/04/2024 Chris Lennon Cervicalgia M54.2 ; Other chronic pain G89.29 ; Essential (primary) hypertension I10 and Other sleep disorders G47.8 Assessments Encounter Date Diagnosis (ICD Code) Assessment Notes Treatment Notes Treatment Clinical Notes Section Notes 01/24/2024 Cervicalgia (ICD-10 - M54.2) Chronic cervical spine pain. Patient reports she had an appointment with Dr. Katz, was referred to Physical Therapy (completed), and is continuing a home stretching program. 03/27/2024 Other chronic pain (ICD-10 - G89.29) Patient reports that taking her pain medication allows her to continue working. Plan to continue oral opioid medication management. 03/27/2024 Cervicalgia (ICD-10 - M54.2) Chronic cervical spine pain. Patient reports she has continued her home stretching program as recommended by Dr. Katz. 05/22/2024 Cervicalgia (ICD-10 - M54.2) Chronic cervical spine pain. Patient reports she has continued her home stretching program as recommended by Dr. Katz. 07/17/2024 Cervicalgia (ICD-10 - M54.2) Chronic cervical spine pain. Patient reports she has continued her home stretching program as recommended by Dr. Katz. 09/09/2024 Other chronic pain (ICD-10 - G89.29) Patient reports that taking her pain medication allows her to spend time with her grandkids. Plan to continue oral opioid medication management. 09/09/2024 Cervicalgia (ICD-10 - M54.2) Chronic cervical spine pain. Patient reports she has continued her home stretching program as recommended by Dr. Katz. 11/04/2024 Other chronic pain (ICD-10 - G89.29) Patient reports that taking her pain medication allows her to spend time with her grandkids and continue working. Plan to continue oral opioid medication at today's visit. 11/04/2024 Cervicalgia (ICD-10 - M54.2) Chronic cervical spine pain. 11/04/2024 Essential (primary) hypertension (ICD-10 - I10) Education sheet given at today's visit; patient to address with PCP. 07/17/2024 Other chronic pain (ICD-10 - G89.29) Patient reports that taking her pain medication allows her to continue working from home. Plan to continue oral opioid medication management. 09/09/2024 Other sleep disorders (ICD-10 - G47.8) Plan to continue to restrict opioid use in relation to sleep for safety concerns. 03/27/2024 Myalgia of auxiliary muscles, head and neck (ICD-10 - M79.12) Prior TPIs with history of variable degrees of benefit appreciated by patient. 01/24/2024 Other chronic pain (ICD-10 - G89.29) Patient reports that taking her pain medication allows her to continue working. Plan to continue oral opioid medication management. 05/22/2024 Other chronic pain (ICD-10 - G89.29) Patient reports that taking her pain medication allows her to prepare for the holiday season. Plan to continue oral opioid medication management. 01/24/2024 Myalgia of auxiliary muscles, head and neck (ICD-10 - M79.12) Prior TPIs with history of variable degrees of benefit appreciated by patient. 01/24/2024 Headache, unspecified (ICD-10 - R51.9) History of near immediate headache relief appreciated by patient following prior TPIs targeting C2-3 areas. Patient has reported that she continues to receive Botox injections via [facility] with improvement noted in the frequency of her headaches; appointment scheduled for later today. 03/27/2024 Headache, unspecified (ICD-10 - R51.9) History of near immediate headache relief appreciated by patient following prior TPIs targeting C2-3 areas. Patient has reported that she continues to receive Botox injections via [facility] with improvement noted in the frequency of her headaches. 07/17/2024 Myalgia of auxiliary muscles, head and neck (ICD-10 - M79.12) Prior TPIs with history of variable degrees of benefit appreciated by patient. 05/22/2024 Myalgia of auxiliary muscles, head and neck (ICD-10 - M79.12) Prior TPIs with history of variable degrees of benefit appreciated by patient. 11/04/2024 Other sleep disorders (ICD-10 - G47.8) Plan to continue to restrict opioid use in relation to sleep for safety concerns. 05/22/2024 Headache, unspecified (ICD-10 - R51.9) History of near immediate headache relief appreciated by patient following prior TPIs targeting C2-3 areas. Patient has reported that she continues to receive Botox injections via [facility] with improvement noted in the frequency of her headaches. 07/17/2024 Headache, unspecified (ICD-10 - R51.9) History of near immediate headache relief appreciated by patient following prior TPIs targeting C2-3 areas. Patient has reported that she continues to receive Botox injections via [facility] with improvement noted in the frequency of her headaches. 03/27/2024 Other sleep disorders (ICD-10 - G47.8) Plan to continue to restrict opioid use in relation to sleep for safety concerns. 01/24/2024 Other sleep disorders (ICD-10 - G47.8) Plan to continue to restrict opioid use in relation to sleep for safety concerns. 05/22/2024 Other sleep disorders (ICD-10 - G47.8) Plan to continue to restrict opioid use in relation to sleep for safety concerns. 07/17/2024 Other sleep disorders (ICD-10 - G47.8) Plan to continue to restrict opioid use in relation to sleep for safety concerns. 03/27/2024 Other The service was provided by ROSINA Aguayo, as part of the ongoing care plan established by Chris Lennon MD, who was present in the office for direct supervision during the encounter. 09/09/2024 Other The service was provided by ROSINA Aguayo, as part of the ongoing care plan established by Chris Lennon MD, who was present in the office for direct supervision during the encounter. 11/04/2024 Other The service was provided by ROSINA Aguayo, as part of the ongoing care plan established by Chris Lennon MD, who was present in the office for direct supervision during the encounter. Patient was provided with a letter at today's visit informing patient that this clinic is closing due to Dr. Lennon's correction; see scanned document. Terminal prescriptions were given to the patient along with tapering instructions. 05/22/2024 Other The service was provided by ROSINA Aguayo, as part of the ongoing care plan established by Chris Lennon MD, who was present in the office for direct supervision during the encounter. 07/17/2024 Other The service was provided by ROSINA Aguayo, as part of the ongoing care plan established by Chris Lennon MD, who was present in the office for direct supervision during the encounter. 01/24/2024 Other Plan Of Treatment No Information Insurance Providers Payer Name Payer Address Payer Phone Subscriber Number Group Number Insured Name Patient Relationship to Insured Coverage Start Date Coverage End Date [facility] [address] [address] [place] [address] [id number] Andree Godfrey Self - patient is the insured [facility] [address] [place] [address] [id number] Andree Godfrey Self - patient is the insured Medical (General) History Medical History History ICD Code Chronic pain Neck and low back pain Cervical spondylosis and spinal stenosis Radiculopathy, cervical Occipital neuralgia Bilateral shoulder pain Herniated disc, cervical Depression and anxiety Chronic cystitis Hemorrhoids Abdominal pain Brachial neuritis Acid reflex Sleep disorder, insomnia (usama munguia declined prior offer for a sleep study and possible treatment due to finances) Obesity, mild Surgical History Surgery Date(Month/Year) Endocervical currettage for abnormal PAP Laparoscopic surgery due to pain (tilted uterus) Colonoscopy Appendectomy, 2003 Cholecystectomy, 2004 Hysterectomy with bladder tuck, 2003 C4-C5 disc replacement, performed by Dr. Katz at [facility], 2006 Hernia repair, 2008 Hospitalization History Reason Date(Month/Year) Abscess from abdominal surgery, 2008
--- OUTSIDE RECORDS SUMMARY | 2024-12-21 21:13 | XMS_ITS | Encounter Summary ---
Author Organization [facility] Address [address] [place] [address] Care Team Providers Care Soda Room Operator Name Role Phone Jaiden Schulte MD Primary Care Provider Encounter Details Date Type Department Care Team (Latest Contact Info) Description 09/26/2000 Outpatient Historical [address] [phone] Felicitas Everett MD [address] [place] [address], [address] Pure hypercholesterolem (Primary Dx); Dietary surveil/staff counselor Social History Tobacco Use Types Packs/Day Years Used Date Smoking Tobacco: Never Assessed Comments Unknown Sex and Gender Information Value Date Recorded Sex Assigned at Not on file Legal Sex Female 4:50 AM SPECIAL POLICE Gender Identity Not on file Sexual Orientation Not on file documented as of this encounter Plan of Treatment Not on file documented as of this encounter Visit Diagnoses Diagnosis Pure hypercholesterolem- Primary Pure hypercholesterolemia Dietary surveil/staff counselor Dietary surveillance and counseling documented in this encounter Care Teams Soda Room Operator Relationship Specialty Start Date End Date Jaiden Schulte MD [address] [address] PCP - General 04/24/07 documented as of this encounter
--- OUTSIDE RECORDS SUMMARY | 2024-12-21 21:13 | XMS_ITS | Encounter Summary ---
Author Organization [facility] Address [address] [place] [address] Care Team Providers Care Rigging And Controls Aircraft Mechanic Name Role Phone Jaiden Schulte MD Primary Care Provider Encounter Details Date Type Department Care Team (Latest Contact Info) Description 03/26/2000 Outpatient Historical [address] [phone] Felicitas Everett MD [address] [place] [address], [address] Esophageal reflux (Primary Dx) Social History Tobacco Use Types Packs/Day Years Used Date Smoking Tobacco: Never Assessed Comments Unknown Sex and Gender Information Value Date Recorded Sex Assigned at Not on file Legal Sex Female 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
--- OUTSIDE RECORDS SUMMARY | 2024-12-21 21:13 | XMS_ITS | Encounter Summary ---
Author Organization [facility] Address [address] [place] [address] Care Team Providers Care Mri Assistant Name Role Phone Jaiden Schulte MD Primary Care Provider Encounter Details Date Type Department Care Team (Latest Contact Info) Description 05/29/2007 Outpatient Historical [facility] [address] [place] [address] Ed, Physician NO ADDRESS ON FILE Sol Camacho, NO ADDRESS ON FILE Edgar Paige MD NO ADDRESS ON FILE Abdominal Pain, Unspecified Site Social History Tobacco Use Types Packs/Day Years Used Date Smoking Tobacco: Never Assessed Comments Unknown Sex and Gender Information Value Date Recorded Sex Assigned at Not on file Legal Sex Female 4:50 AM HOT AIR FURNACE INSTALLER AND REPAIRER Gender Identity Not on file Sexual Orientation Not on file documented as of this encounter Plan of Treatment Not on file documented as of this encounter Procedures Procedure Name Priority Date/Time Associated Diagnosis Comments URINALYSIS MICROSCOPY ONLY Routine 06/01/2007 12:09 PM HOT AIR FURNACE INSTALLER AND REPAIRER KETONE, QUALITATIVE, URINE Routine 06/01/2007 12:09 PM HOT AIR FURNACE INSTALLER AND REPAIRER URINALYSIS W/REFLEX MICROSCOPIC Routine 06/01/2007 12:09 PM HOT AIR FURNACE INSTALLER AND REPAIRER RENAL FUNCTION PANEL Routine 06/01/2007 5:00 AM HOT AIR FURNACE INSTALLER AND REPAIRER RENAL FUNCTION PANEL Routine 05/31/2007 10:30 AM HOT AIR FURNACE INSTALLER AND REPAIRER CBC WITH DIFFERENTIAL Routine 05/31/2007 6:51 AM HOT AIR FURNACE INSTALLER AND REPAIRER RENAL FUNCTION PANEL Routine 05/31/2007 6:51 AM HOT AIR FURNACE INSTALLER AND REPAIRER BASIC METABOLIC PANEL Routine 05/31/2007 6:51 AM HOT AIR FURNACE INSTALLER AND REPAIRER PROTEIN , RANDOM URINE Routine 7 9:54 PM HOT AIR FURNACE INSTALLER AND REPAIRER CREATININE, RANDOM URINE Routine 05/30/2007 9:54 PM HOT AIR FURNACE INSTALLER AND REPAIRER GLUCOSE URINALYSIS, QUALITATIVE Routine 05/30/2007 12:43 PM HOT AIR FURNACE INSTALLER AND REPAIRER URINALYSIS MICROSCOPY ONLY Routine 05/30/2007 12:43 PM HOT AIR FURNACE INSTALLER AND REPAIRER URINALYSIS W/REFLEX MICROSCOPIC Routine 05/30/2007 12:43 PM HOT AIR FURNACE INSTALLER AND REPAIRER MAGNESIUM LEVEL Routine 05/30/2007 4:43 AM HOT AIR FURNACE INSTALLER AND REPAIRER BASIC METABOLIC PANEL Routine 05/30/2007 4:43 AM HOT AIR FURNACE INSTALLER AND REPAIRER CBC WITH DIFFERENTIAL Routine 05/29/2007 11:39 PM HOT AIR FURNACE INSTALLER AND REPAIRER HCG QUANTITATIVE, BLOOD Routine 05/29/2007 11:39 PM HOT AIR FURNACE INSTALLER AND REPAIRER COMPREHENSIVE METABOLIC PANEL Routine 05/29/2007 11:39 PM HOT AIR FURNACE INSTALLER AND REPAIRER documented in this encounter Results * (ABNORMAL) URINALYSIS MICROSCOPY ONLY (06/01/2007 12:09 PM HOT AIR FURNACE INSTALLER AND REPAIRER) WBC URINE 11-15(A) 0 - 2 INTERFACE SYSTEM RBC UA 6-10(A) 0 - 2 INTERFACE SYSTEM HYALINE CAST None Seen 0 - 2 INTERFA CE SYSTEM BACTERIA UA Many(A) None Seen INTERFAC E SYSTEM 06/01/2007 12:0 9 PM HOT AIR FURNACE INSTALLER AND REPAIRER us Edgar Paige MD URINE ORDERABLES Edited INTERFACE SYSTEM Refer to clinic/hospital department * (ABNORMAL) ACETONE QUALITATIVE, URINE (06/01/2007 12:09 PM HOT AIR FURNACE INSTALLER AND REPAIRER) KETONES UA Moderate(A ) Negative INTERFACE SYSTEM 06/01/2007 12:0 9 PM HOT AIR FURNACE INSTALLER AND REPAIRER Edgar Paige MD URINE ORDERABLES Edited Performing Organization Address [facility] Phone Number INTERFACE SYSTEM Refer to clinic/hospital department * (ABNORMAL) URINALYSIS (06/01/2007 12:09 PM HOT AIR FURNACE INSTALLER AND REPAIRER) COLOR UA Yellow Straw INTERFACE SYSTEM CLARITY UA Cloudy(A) Clear INTERFACE SYSTEM LEUKOCYTE ESTERASE UA Small(A) NEGATIVE INTERFACE SYSTEM NITRITE UA NEGATIVE NEGATIVE INTERFACE SYSTEM PH UA 6.0 5.0 - 9.0 INTERFACE SYSTEM PROTEIN UA 100 mg/dl(A) NEGATIVE INTERF KEON SYSTEM GLUCOSE UA NEGATIVE NEGATIVE INTERFACE SYSTEM UROBILINOGEN UA 0.2 0.2 INTE RFACE SYSTEM BILIRUBIN UA NEGATIVE NEGATIVE INTERFA CE SYSTEM BLOOD UA Large(A) NEGATIVE INTERFACE SYSTEM SPECIFIC GRAVITY UA 1.025 <=1.005 INTERFACE SYSTEM MICRO EXAM Yes(A) No INTERFACE SYSTEM 06/01/2007 12:0 9 PM HOT AIR FURNACE INSTALLER AND REPAIRER Edgar Paige MD URINE ORDERABLES Edited Performing Organization Address [facility] Phone Number INTERFACE SYSTEM Refer to clinic/hospital department * (ABNORMAL) RENAL FUNCTION PANEL (06/01/2007 5:00 AM HOT AIR FURNACE INSTALLER AND REPAIRER) PHOSPHORUS 2.8 2.5 - 4.6 mg/dL INTERFACE SYSTEM GLUCOSE 97 70 - 110 mg/dL INTERFACE SYSTEM BUN 3(L) 7 - 17 mg/dL INTERFACE SYSTEM CREATININE 0.6(L) 0.7 - 1.2 mg/dL INTERFACE SYSTEM SODIUM 139 136 - 145 mEq/L INTERFACE SYSTEM POTASSIUM 3.7 3.5 - 5.0 mEq/L INTERFACE SYSTEM CHLORIDE 105 95 - 110 mEq/L INTERFACE SYSTEM CO2 27 22 - 32 mmol/l INTERFACE SYSTEM CALCIUM 8.6 8.4 - 10.5 mg/dL INTERFACE SYSTEM ALBUMIN 3.2(L) 3.5 - 5.0 g/dL INTERFACE SYSTEM ANION GAP 11 9 - 20 mEq/L INTERFACE SYSTEM OSMOLALITY, CALCULATED 282 275 - 295 mOsm/Kg INTERFACE SYSTEM 06/01/2007 5:00 AM HOT AIR FURNACE INSTALLER AND REPAIRER Edgar Paige MD CHEMISTRY ORDERABLES Edite d Performing Organization Address [facility] Phone Number INTERFACE SYSTEM Refer to clinic/hospital department * (ABNORMAL) RENAL FUNCTION PANEL (05/31/2007 10:30 AM HOT AIR FURNACE INSTALLER AND REPAIRER) PHOSPHORUS 1.8(L) 2.5 - 4.6 mg/dL INTERFACE SYSTEM GLUCOSE 124(H) 70 - 110 mg/dL INTERFACE SYSTEM BUN 5(L) 7 - 17 mg/dL INTERFACE SYSTEM CREATININE 0.8 0.7 - 1.2 mg/dL INTERFACE SYSTEM SODIUM 140 136 - 145 mEq/L INTERFACE SYSTEM POTASSIUM 4.1 3.5 - 5.0 mEq/L INTERFACE SYSTEM CHLORIDE 111(H) 95 - 110 mEq/L INTERFACE SYSTEM CO2 26 22 - 32 mmol/l INTERFACE SYSTEM CALCIUM 8.5 8.4 - 10.5 mg/dL INTERFACE SYSTEM ALBUMIN 3.4(L) 3.5 - 5.0 g/dL INTERFACE SYSTEM ANION GAP 7(L) 9 - 20 mEq/L INTERFACE SYSTEM OSMOLALITY, CALCULATED 287 275 - 295 mOsm/Kg INTERFACE SYSTEM 05/31/2007 10:3 0 AM HOT AIR FURNACE INSTALLER AND REPAIRER Edgar Paige MD CHEMISTRY ORDERABLES Edite d Performing Organization Address [facility] Phone Number INTERFACE SYSTEM Refer to clinic/hospital department * (ABNORMAL) RENAL FUNCTION PANEL (05/31/2007 6:51 AM HOT AIR FURNACE INSTALLER AND REPAIRER) PHOSPHORUS 2.0(L) 2.5 - 4.6 mg/dL INTERFACE SYSTEM GLUCOSE 107 70 - 110 mg/dL INTERFACE SYSTEM BUN 9 7 - 17 mg/dL INTERFACE SYSTEM CREATININE 1.0 0.7 - 1.2 mg/dL INTERFACE SYSTEM SODIUM 141 136 - 145 mEq/L INTERFACE SYSTEM POTASSIUM 3.7 3.5 - 5.0 mEq/L INTERFACE SYSTEM CHLORIDE 112(H) 95 - 110 mEq/L INTERFACE SYSTEM CO2 23 22 - 32 mmol/l INTERFACE SYSTEM CALCIUM 8.4 8.4 - 10.5 mg/dL INTERFACE SYSTEM ALBUMIN 3.6 3.5 - 5.0 g/dL INTERFACE SYSTEM ANION GAP 10 9 - 20 mEq/L INTERFACE SYSTEM OSMOLALITY, CALCULATED 288 275 - 295 mOsm/Kg INTERFACE SYSTEM 05/31/2007 6:51 AM HOT AIR FURNACE INSTALLER AND REPAIRER Edgar Paige MD CHEMISTRY ORDERABLES Edite d Performing Organization Address [facility] Phone Number INTERFACE SYSTEM Refer to clinic/hospital department * (ABNORMAL) BASIC METABOLIC PANEL (05/31/2007 6:51 AM HOT AIR FURNACE INSTALLER AND REPAIRER) GLUCOSE 109 70 - 110 mg/dL INTERFACE SYSTEM BUN 8 7 - 17 mg/dL INTERFACE SYSTEM CREATININE 1.0 0.7 - 1.2 mg/dL INTERFACE SYSTEM SODIUM 141 136 - 145 mEq/L INTERFACE SYSTEM POTASSIUM 3.6 3.5 - 5.0 mEq/L INTERFACE SYSTEM CHLORIDE 112(H) 95 - 110 mEq/L INTERFACE SYSTEM CO2 24 22 - 32 mmol/l INTERFACE SYSTEM CALCIUM 8.5 8.4 - 10.5 mg/dL INTERFACE SYSTEM ANION GAP 9 9 - 20 mEq/L INTERFACE SYSTEM OSMOLALITY, CALCULATED 288 275 - 295 mOsm/Kg INTERFACE SYSTEM 05/31/2007 6:51 AM HOT AIR FURNACE INSTALLER AND REPAIRER Edgar Paige MD CHEMISTRY ORDERABLES Edite d Performing Organization Address [facility] Phone Number INTERFACE SYSTEM Refer to clinic/hospital department * (ABNORMAL) CBC WITH DIFFERENTIAL (05/31/2007 6:51 AM HOT AIR FURNACE INSTALLER AND REPAIRER) WBC 9.6 4.5 - 11.0 K/ul INTERFACE SYSTEM RBC 4.66 4.20 - 5.40 Mil/ul INTERFACE SYSTEM HEMOGLOBIN 13.0 12.0 - 16.0 g/dL INTERFACE SYSTEM HEMATOCRIT 38.8 36.0 - 46.0 % INTERFACE SYSTEM MCV 83.3(L) 84.0 - 103.0 Fl INTERFACE SYSTEM MCH 27.9 27.0 - 34.0 pg INTERFACE SYSTEM MCHC 33.5 30.0 - 35.0 g/dL INTERFACE SYSTEM RDW 13.9 11.0 - 14.5 % INTERFACE SYSTEM PLATELETS 285 140 - 440 K/ul INTERFACE SYSTEM MPV 11.2 8.9 - 12.8 Fl INTERFACE SYSTEM NEUTROPHILS 70.2 42.2 - 75.2 % INTERFACE SYSTEM LYMPHOCYTES 14.3(L) 24.0 - 44.0 % INTERFACE SYSTEM MONOCYTES 10.8(H) 2.0 - 10.0 % INTERFACE SYSTEM EOSINOPHILS 4.2 0.0 - 7.0 % INTERFACE SYSTEM BASOPHILS 0.5 0.0 - 1.0 % INTERFACE SYSTEM NEUTROPHIL ABSOLUTE 6.7 2.0 - 8.0 K/ul INTERFACE SYSTEM LYMPHOCYTE ABSOLUTE 1.4 1.2 - 4.0 K/ul INTERFACE SYSTEM MONOCYTE ABSOLUTE 1.0(H) 0.1 - 0.6 K/ul INTERFACE SYSTEM EOSINOPHIL ABSOLUTE 0.4 0.0 - 0.7 K/ul INTERFACE SYSTEM BASOPHILS ABSOLUTE 0.1 0.0 - 0.2 K/ul INTERFACE SYSTEM 05/31/2007 6:51 AM HOT AIR FURNACE INSTALLER AND REPAIRER Edgar Paige MD HEMATOLOGY ORDERABLES Edit ed Performing Organization Address [facility] Phone Number INTERFACE SYSTEM Refer to clinic/hospital department * (ABNORMAL) PROTEIN , RANDOM URINE (05/30/2007 9:54 PM HOT AIR FURNACE INSTALLER AND REPAIRER) PROTEIN TOTAL, URINE 82.3(H) 0.0 - 14.0 mg/dL INTERFACE SYSTEM 05/30/2007 9:54 PM HOT AIR FURNACE INSTALLER AND REPAIRER Edgar Paige MD URINE ORDERABLES Edited Performing Organization Address [facility] Phone Number INTERFACE SYSTEM Refer to clinic/hospital department * CREATININE, RANDOM URINE (05/30/2007 9:54 PM HOT AIR FURNACE INSTALLER AND REPAIRER) Creatinine, Urine 186.8 mg/dL INTERFACE SYSTEM 05/30/2007 9:54 PM HOT AIR FURNACE INSTALLER AND REPAIRER Edgar Paige MD URINE ORDERABLES Edited Performing Organization Address [facility] Phone Number INTERFACE SYSTEM Refer to clinic/hospital department * (ABNORMAL) URINALYSIS MICROSCOPY ONLY (05/30/2007 12:43 PM HOT AIR FURNACE INSTALLER AND REPAIRER) WBC URINE 0-2 0 - 2 INTERFACE SYSTEM RBC UA 6-10(A) 0 - 2 INTERFACE SYSTEM HYALINE CAST None Seen 0 - 2 INTERFA CE SYSTEM BACTERIA UA Few(A) None Seen INTERFAC E SYSTEM 05/30/2007 12:4 3 PM HOT AIR FURNACE INSTALLER AND REPAIRER Edgar Paige MD URINE ORDERABLES Edited Performing Organization Address [facility] Phone Number INTERFACE SYSTEM Refer to clinic/hospital department * (ABNORMAL) GLUCOSE URINALYSIS, QUALITATIVE (05/30/2007 12:43 PM HOT AIR FURNACE INSTALLER AND REPAIRER) GLUCOSE, URINE 100 mg/dl(A) Negative INTERFACE SYSTEM 05/30/2007 12:4 3 PM HOT AIR FURNACE INSTALLER AND REPAIRER us Edgar Paige MD URINE ORDERABLES Edited Performing Organization Address [place] [facility] Phone Number INTERFACE SYSTEM Refer to clinic/hospital department * (ABNORMAL) URINALYSIS (05/30/2007 12:43 PM HOT AIR FURNACE INSTALLER AND REPAIRER) COLOR UA Yellow Straw INTERFACE SYSTEM CLARITY UA Clear Clear INTERFACE SYSTEM LEUKOCYTE ESTERASE UA NEGATIVE NEGATIVE INTERFACE SYSTEM NITRITE UA NEGATIVE NEGATIVE INTERFACE SYSTEM PH UA 6.0 5.0 - 9.0 INTERFACE SYSTEM PROTEIN UA Trace(A) NEGATIVE INTERFACE SYSTEM KETONES UA NEGATIVE NEGATIVE INTERFACE SYSTEM UROBILINOGEN UA 0.2 0.2 INTE RFACE SYSTEM BILIRUBIN UA NEGATIVE NEGATIVE INTERFA CE SYSTEM BLOOD UA Large(A) NEGATIVE INTERFACE SYSTEM SPECIFIC GRAVITY UA 1.010 <=1.005 INTERFACE SYSTEM MICRO EXAM Yes(A) No INTERFACE SYSTEM 05/30/2007 12:4 3 PM HOT AIR FURNACE INSTALLER AND REPAIRER us Edgar Paige MD URINE ORDERABLES Edited Performing Organization Address [facility] Phone Number INTERFACE SYSTEM Refer to clinic/hospital department * MAGNESIUM LEVEL (05/30/2007 4:43 AM HOT AIR FURNACE INSTALLER AND REPAIRER) MAGNESIUM 2.4 1.7 - 2.4 mg/dL INTERFACE SYSTEM 05/30/2007 4:43 AM HOT AIR FURNACE INSTALLER AND REPAIRER Edgar Paige MD CHEMISTRY ORDERABLES Edite d Performing Organization Address [facility] Number INTERFACE SYSTEM Refer to clinic/hospital department * (ABNORMAL) BASIC METABOLIC PANEL (05/30/2007 4:43 AM HOT AIR FURNACE INSTALLER AND REPAIRER) GLUCOSE 152(H) 70 - 110 mg/dL INTERFACE SYSTEM BUN 27(H) 7 - 17 mg/dL INTERFACE SYSTEM CREATININE 3.9(H) 0.7 - 1.2 mg/dL INTERFACE SYSTEM SODIUM 133(L) 136 - 145 mEq/L INTERFACE SYSTEM POTASSIUM 5.0 3.5 - 5.0 mEq/L INTERFACE SYSTEM Comment:Specimen slightly he molyzed CHLORIDE 104 95 - 110 mEq/L INTERFACE SYSTEM CO2 22 22 - 32 mmol/l INTERFACE SYSTEM CALCIUM 9.0 8.4 - 10.5 mg/dL INTERFACE SYSTEM ANION GAP 12 9 - 20 mEq/L INTERFACE SYSTEM OSMOLALITY, CALCULATED 285 275 - 295 mOsm/Kg INTERFACE SYSTEM 05/30/2007 4:43 AM HOT AIR FURNACE INSTALLER AND REPAIRER Edgar Paige MD CHEMISTRY ORDERABLES Edite d Performing Organization Address [place] [facility] Phone Number INTERFACE SYSTEM Refer to clinic/hospital department * BETA HCG QUANTITATIVE, BLOOD (05/29/2007 11:39 PM HOT AIR FURNACE INSTALLER AND REPAIRER) Pathologist [facility] CHORIONIC GONADOTROPIN, TOTAL <2.0 0.0 - 10.0 mlU/ML INTERFACE SYSTEM 05/29/2007 11:3 9 PM HOT AIR FURNACE INSTALLER AND REPAIRER Sol Camacho DO CHEMISTRY ORDERABLES Edited Performing Organization Address [facility] Phone Number INTERFACE SYSTEM Refer to clinic/hospital department * (ABNORMAL) COMPREHENSIVE METABOLIC PANEL (05/29/2007 11:39 PM HOT AIR FURNACE INSTALLER AND REPAIRER) GLOBULIN (CALC) 3.8 2.4 - 3.9 g/dL INTERFACE SYSTEM ALBUMIN/GLOBULIN RATIO 1.3 1.0 - 2.3 INTERFACE SYSTEM GLUCOSE 106 70 - 110 mg/dL INTERFACE SYSTEM BUN 23(H) 7 - 17 mg/dL INTERFACE SYSTEM CREATININE 2.8(H) 0.7 - 1.2 mg/dL INTERFACE SYSTEM SODIUM 136 136 - 145 mEq/L INTERFACE SYSTEM POTASSIUM 5.6(H) 3.5 - 5.0 mEq/L INTERFACE SYSTEM Comment:Specimen moderately hemolyzed CHLORIDE 100 95 - 110 mEq/L INTERFACE SYSTEM CO2 19(L) 22 - 32 mmol/l INTERFACE SYSTEM CALCIUM 10.4 8.4 - 10.5 mg/dL INTERFACE SYSTEM TOTAL PROTEIN 8.8(H) 6.3 - 8.2 g/dL INTERFACE SYSTEM ALBUMIN 5.0 3.5 - 5.0 g/dL INTERFACE SYSTEM ALKALINE PHOSPHATASE 77 25 - 100 U/L INTERFACE SYSTEM AST 58(H) 8 - 33 U/L INTERFACE SYSTEM ALT 66(H) 4 - 36 IU/L INTERFACE SYSTEM BILIRUBIN TOTAL 0.6 0.3 - 1.2 mg/dL INTERFACE SYSTEM ANION GAP 23(H) 9 - 20 mEq/L INTERFACE SYSTEM OSMOLALITY, CALCULATED 287 275 - 295 mOsm/Kg INTERFACE SYSTEM 05/29/2007 11:3 9 PM HOT AIR FURNACE INSTALLER AND REPAIRER us Sol Camacho DO CHEMISTRY ORDERABLES Edited INTERFACE SYSTEM Refer to clinic/hospital department * (ABNORMAL) CBC WITH DIFFERENTIAL (05/29/2007 11:39 PM HOT AIR FURNACE INSTALLER AND REPAIRER) WBC 10.1 4.5 - 11.0 K/ul INTERFACE SYSTEM RBC 5.71(H) 4.20 - 5.40 Mil/ul INTERFACE SYSTEM HEMOGLOBIN 16.2(H) 12.0 - 16.0 g/dL INTERFACE SYSTEM HEMATOCRIT 46.4(H) 36.0 - 46.0 % INTERFACE SYSTEM MCV 81.3(L) 84.0 - 103.0 Fl INTERFACE SYSTEM MCH 28.4 27.0 - 34.0 pg INTERFACE SYSTEM MCHC 34.9 30.0 - 35.0 g/dL INTERFACE SYSTEM RDW 13.5 11.0 - 14.5 % INTERFACE SYSTEM PLATELETS 330 140 - 440 K/ul INTERFACE SYSTEM MPV 11.5 8.9 - 12.8 Fl INTERFACE SYSTEM NEUTROPHILS 72.1 42.2 - 75.2 % INTERFACE SYSTEM LYMPHOCYTES 16.6(L) 24.0 - 44.0 % INTERFACE SYSTEM MONOCYTES 9.1 2.0 - 10.0 % INTERFACE SYSTEM EOSINOPHILS 1.9 0.0 - 7.0 % INTERFACE SYSTEM BASOPHILS 0.3 0.0 - 1.0 % INTERFACE SYSTEM NEUTROPHIL ABSOLUTE 7.3 2.0 - 8.0 K/ul INTERFACE SYSTEM LYMPHOCYTE ABSOLUTE 1.7 1.2 - 4.0 K/ul INTERFACE SYSTEM MONOCYTE ABSOLUTE 0.9(H) 0.1 - 0.6 K/ul INTERFACE SYSTEM EOSINOPHIL ABSOLUTE 0.2 0.0 - 0.7 K/ul INTERFACE SYSTEM BASOPHILS ABSOLUTE 0.0 0.0 - 0.2 K/ul INTERFACE SYSTEM 05/29/2007 11:3 9 PM HOT AIR FURNACE INSTALLER AND REPAIRER Sol Camacho DO HEMATOLOGY ORDERABLES Edited INTERFACE SYSTEM Refer to clinic/hospital department documented in this encounter Visit Diagnoses Diagnosis Abdominal pain, unspecified site documented in this encounter Care Teams Mri Assistant Relationship Specialty Start Date End Date Jaiden Schulte MD [address] [place] [phone] PCP - General 04/24/07 documented as of this encounter
--- OUTSIDE RECORDS SUMMARY | 2024-12-21 21:13 | XMS_ITS | Encounter Summary ---
Author Organization [facility] Address [address] [place] [address] Care Team Providers Care Business Insurance Agent Name Role Phone Jaiden Schulte MD Primary Care Provider Encounter Details Date Type Department Care Team (Latest Contact Info) Description 11/07/2000 Outpatient Historical [address] [phone] Felicitas Everett MD [address] [place] [address], [address] Other and unspecified hyperlipidemia (Primary Dx) Social History Tobacco Use Types Packs/Day Years Used Date Smoking Tobacco: Never Assessed Comments Unknown Sex and Gender Information Value Date Recorded Sex Assigned at Not on file Legal Sex Female 4:50 AM HOTEL ATTENDANT Gender Identity Not on file Sexual Orientation Not on file documented as of this encounter Plan of Treatment Not on file documented as of this encounter Visit Diagnoses Diagnosis Other and unspecified hyperlipidemia- Primary documented in this encounter Care Teams Business Insurance Agent Relationship Specialty Start Date End Date Jaiden Schulte MD [address] [place] [phone] PCP - General 04/24/07 documented as of this encounter
--- OUTSIDE RECORDS SUMMARY | 2024-12-21 21:13 | XMS_ITS | Encounter Summary ---
Author Organization [facility] Address [address] [place] [address] Attn: [place] [address] Care Team Providers Care Building Services Engineer Name Role Phone Jaiden Schulte MD Primary Care Provider Encounter Details Date Type Department Care Team (Late st Contact Info) Description 11/07/2000 Outpatient Historical Felicitas Everett MD [address] [address] Social History Tobacco Use Types Packs/Day Years Used Date Smoking Tobacco: Never Assessed Comments Unknown Sex and Gender Information Value Date Recorded Sex Assigned at Not on file Legal Sex Female 4:50 AM POINTER HELPER Gender Identity Not on file Sexual Orientation Not on file documented as of this encounter Plan of Treatment Not on file documented as of this encounter Visit Diagnoses Not on filedocumented in this encounter Care Teams Building Services Engineer Relationship Specialty Start Date End Date Jaiden Schulte MD [address] [place] [address] PCP - General 04/24/07 documented as of this encounter
--- OUTSIDE RECORDS SUMMARY | 2024-12-21 21:13 | XMS_ITS | Encounter Summary ---
Author Organization [facility] Address [address] [place] [address] Care Team Providers Care Quality Control Tech Raw Materials Name Role Phone Jaiden Schulte MD Primary Care Provider Encounter Details Date Type Department Care Team (Late st Contact Info) Description 08/29/2002 Outpatient Historical [address] [phone] Felicitas Everett MD [address] [place] [address], [address] Social History Tobacco Use Types Packs/Day Years Used Date Smoking Tobacco: Never Assessed Comments Unknown Sex and Gender Information Value Date Recorded Sex Assigned at Not on file Legal Sex Female 4:50 AM FLASH DEVELOPER Gender Identity Not on file Sexual Orientation Not on file documented as of this encounter Plan of Treatment Not on file documented as of this encounter Visit Diagnoses Not on filedocumented in this encounter Care Teams Quality Control Tech Raw Materials Relationship Specialty Start Date End Date Jaiden Schulte MD [address] [place] [phone] PCP - General 04/24/07 documented as of this encounter
--- OUTSIDE RECORDS SUMMARY | 2024-12-21 21:13 | XMS_ITS | Encounter Summary ---
Author Organization [facility] Address [address] [place] [address] Care Team Providers Care Director Of Group Sales Name Role Phone Jaiden Schulte MD Primary Care Provider Encounter Details Date Type Department Care Team (Latest Contact Info) Description 09/14/2000 Outpatient Historical [address] [phone] Felicitas Everett MD [address] [place] [address], [phone] Esophageal reflux (Primary Dx); Nonsuppurative otitis media, not specified as acute or chronic; Other acne Social History Tobacco Use Types Packs/Day Years Used Date Smoking Tobacco: Never Assessed Comments Unknown Sex and Gender Information Value Date Recorded Sex Assigned at Not on file Legal Sex Female 4:50 AM TOBACCO STEMMER MACHINE Gender Identity Not on file Sexual Orientation Not on file documented as of this encounter Plan of Treatment Not on file documented as of this encounter Visit Diagnoses Diagnosis Esophageal reflux- Primary Nonsuppurative otitis media, not specified as acute or chronic Other acne documented in this encounter Care Teams Director Of Group Sales Relationship Specialty Start Date End Date Jaiden Schulte MD [address] [place] [phone] PCP - General 04/24/07 documented as of this encounter
--- OUTSIDE RECORDS SUMMARY | 2024-12-21 21:13 | XMS_ITS | Encounter Summary ---
Author Organization [facility] Address [address] [place] [address] Care Team Providers Care Refresh Technician Name Role Phone Jaiden Schulte MD Primary Care Provider [phone] Encounter Details Date Type Department Care Team (Latest Contact Info) Description 05/09/2000 Outpatient Historical [address] [phone] Jaiden Schulte MD [address] [place] [phone] Esophageal reflux (Primary Dx) Social History Tobacco Use Types Packs/Day Years Used Date Smoking Tobacco: Never Assessed Comments Unknown Sex and Gender Information Value Date Recorded Sex Assigned at Not on file Legal Sex Female 4:50 AM DIRECTOR [facility] Gender Identity Not on file Sexual Orientation Not on file documented as of this encounter Plan of Treatment Not on file documented as of this encounter Visit Diagnoses Diagnosis Esophageal reflux- Primary documented in this encounter Care Teams Refresh Technician Relationship Specialty Start Date End Date Jaiden Schulte MD [address] [place] [phone] PCP - General 04/24/07 documented as of this encounter
--- OUTSIDE RECORDS SUMMARY | 2024-12-21 21:14 | XMS_ITS | Encounter Summary ---
Author Organization [facility] Address [address] [place] [address] Care Team Providers Care Wireless Retail Manager Name Role Phone Jaiden Schulte MD Primary Care Provider Encounter Details Date Type Department Care Team (Late st Contact Info) Description 11/25/2002 Inpatient Historical [facility] Poornima Welsh MD [address] [place], [place] [phone] UTERVAGINAL PROLAPSE NOS (Primary Dx) Social History Tobacco Use Types Packs/Day Years Used Date Smoking Tobacco: Never Assessed Comments Unknown Sex and Gender Information Value Date Recorded Sex Assigned at Not on file Legal Sex Female 4:50 AM END PACKER Gender Identity Not on file Sexual Orientation Not on file documented as of this encounter Plan of Treatment Not on file documented as of this encounter Visit Diagnoses Diagnosis Uterovaginal prolapse, unspecified- Primary documented in this encounter Care Teams Wireless Retail Manager Relationship Specialty Start Date End Date Jaiden Schulte MD [address] [place] [address] PCP - General 04/24/07 documented as of this encounter
--- OUTSIDE RECORDS SUMMARY | 2024-12-21 21:14 | XMS_ITS | Encounter Summary ---
Author Organization [facility] Address [address] [place] [address] Care Team Providers Care Tamale Maker Name Role Phone Jaiden Schulte MD Primary Care Provider [phone] Encounter Details Date Type Department Care Team (Latest Contact Info) Description 07/07/2003 Outpatient Historical [address] [phone] Jaiden Schulte MD [address] [place] [phone] ACUTE FRONTAL SINUSITIS (Primary Dx); STOMATITIS Social History Tobacco Use Types Packs/Day Years Used Date Smoking Tobacco: Never Assessed Comments Unknown Sex and Gender Information Value Date Recorded Sex Assigned at Not on file Legal Sex Female 4:50 AM INTAKE MAN Gender Identity Not on file Sexual Orientation Not on file documented as of this encounter Plan of Treatment Not on file documented as of this encounter Visit Diagnoses Diagnosis Acute frontal sinusitis- Primary Stomatitis and mucositis (ulcerative) documented in this encounter Care Teams Tamale Maker Relationship Specialty Start Date End Date Jaiden Schulte MD [address] [place] [phone] PCP - General 04/24/07 documented as of this encounter
--- OUTSIDE RECORDS SUMMARY | 2024-12-21 21:14 | XMS_ITS | Encounter Summary ---
Author Organization [facility] Address [address] [place] [address] Care Team Providers Care Room Manager Name Role Phone Jaiden Schulte MD Primary Care Provider Encounter Details Date Type Department Care Team (Latest Contact Info) Description 08/28/2003 Outpatient Historical [address] [phone] Felicitas Everett MD [address] [place] [address], [address] ABDOMINAL PAIN UNSPEC SITE (Primary Dx); OTALGIA NOS; ACUTE URI NOS; JOINT PAIN-PELVIS Social History Tobacco Use Types Packs/Day Years Used Date Smoking Tobacco: Never Assessed Comments Unknown Sex and Gender Information Value Date Recorded Sex Assigned at Not on file Legal Sex Female 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
--- OUTSIDE RECORDS SUMMARY | 2024-12-21 21:14 | XMS_ITS | Encounter Summary ---
Author Organization [facility] Address [address] [place] [address] Care Team Providers Care Physical Education Aide Name Role Phone Jaiden Schulte MD Primary Care Provider Encounter Details Date Type Department Care Team (Latest Contact Info) Description 09/02/1999 Outpatient Historical [facility] Medicine [address], [place] [phone] Lynsey Arechiga MD [address] [place] [phone] General symptoms NEC (Primary Dx) Social History Tobacco Use Types Packs/Day Years Used Date Smoking Tobacco: Never Assessed Comments Unknown Sex and Gender Information Value Date Recorded Sex Assigned at Not on file Legal Sex Female 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
--- OUTSIDE RECORDS SUMMARY | 2024-12-21 21:14 | XMS_ITS | Encounter Summary ---
Author Organization [facility] Address [address] [place] [address] Care Team Providers Care Propeller Engineer Name Role Phone Jaiden Schulte MD Primary Care Provider Encounter Details Date Type Department Care Team (Late st Contact Info) Description 11/24/2002 [facility] [id number] [place] [phone] Poornima Welsh MD [address] [place] [address] PREOP EXAM OTHER SPECIFIED (Primary Dx) Social History Tobacco Use Types Packs/Day Years Used Date Smoking Tobacco: Never Assessed Comments Unknown Sex and Gender Information Value Date Recorded Sex Assigned at Not on file Legal Sex Female 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
--- OUTSIDE RECORDS SUMMARY | 2024-12-21 21:14 | XMS_ITS | Encounter Summary ---
Author Organization [facility] Address [address] [place] [address] Care Team Providers Care Market Development Specialist Name Role Phone Jaiden Schulte MD Primary Care Provider [phone] Encounter Details Date Type Department Care Team (Latest Contact Info) Description 09/04/2002 Outpatient Historical [facility] [address] [place] [address] Felicitas Everett MD [address], [address] FEMALE GENITAL SYMPTOMS NOS (Primary Dx) Social History Tobacco Use Types Packs/Day Years Used Date Smoking Tobacco: Never Assessed Comments Unknown Sex and Gender Information Value Date Recorded Sex Assigned at Not on file Legal Sex Female 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
--- OUTSIDE RECORDS SUMMARY | 2024-12-21 21:14 | XMS_ITS | Encounter Summary ---
Author Organization [facility] Address [address] [place] [address] Care Team Providers Care Psychiatry Physician Name Role Phone Jaiden Schulte MD Primary Care Provider Encounter Details Date Type Department Care Team (Latest Contact Info) Description 04/15/2002 Outpatient Historical [address] [phone] Jaiden Schulte MD [address] [place] [phone] JOINT PAIN-SHLDER (Primary Dx); CERVICALGIA; VISUAL LOSS NOS Social History Tobacco Use Types Packs/Day Years Used Date Smoking Tobacco: Never Assessed Comments Unknown Sex and Gender Information Value Date Recorded Sex Assigned at Not on file Legal Sex Female 4:50 AM GRINDER [employer] Gender Identity Not on file Sexual Orientation Not on file documented as of this encounter Plan of Treatment Not on file documented as of this encounter Visit Diagnoses Diagnosis Pain in joint, shoulder region- Primary Cervicalgia Unspecified visual loss documented in this encounter Care Teams Psychiatry Physician Relationship Specialty Start Date End Date Jaiden Schulte MD [address] [place] [phone] PCP - General 04/24/07 documented as of this encounter
--- OUTSIDE RECORDS SUMMARY | 2024-12-21 21:14 | XMS_ITS | Encounter Summary ---
Author Organization [facility] Address [address] [place] [address] Care Team Providers Care Nursery Helper Name Role Phone Jaiden Schulte MD Primary Care Provider Encounter Details Date Type Department Care Team (Late st Contact Info) Description 04/24/2007 Outpatient Historical [facility] Imaging Services[facility] [address] [place] [address] Jaiden Schulte MD [address] [place] [address] Social History Tobacco Use Types Packs/Day Years Used Date Smoking Tobacco: Never Assessed Comments Unknown Sex and Gender Information Value Date Recorded Sex Assigned at Not on file Legal 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
--- OUTSIDE RECORDS SUMMARY | 2024-12-21 21:14 | XMS_ITS | Encounter Summary ---
Author Organization [facility] Address [address] [place] [address] Care Team Providers Care Furniture Dipper Name Role Phone Jaiden Schulte MD Primary Care Provider [phone] Encounter Details Date Type Department Care Team (Latest Contact Info) Description 04/24/2007 Outpatient Historical [facility] Imaging Services-[facility] [address] [place] [phone] Jaiden Schulte MD [address] [place] [phone] Abdominal Pain, Left Lower Quadrant (Primary Dx) Social History Tobacco Use Types Packs/Day Years Used Date Smoking Tobacco: Never Assessed Comments Unknown Sex and Gender Information Value Date Recorded Sex Assigned at Not on file Legal Sex Female 4:50 AM RELINER Gender Identity Not on file Sexual Orientation Not on file documented as of this encounter Plan of Treatment Not on file documented as of this encounter Visit Diagnoses Diagnosis Abdominal pain, left lower quadrant- Primary documented in this encounter Care Teams Furniture Dipper Relationship Specialty Start Date End Date Jaiden Schulte MD [address] [place] [phone] PCP - General 04/24/07 documented as of this encounter
--- OUTSIDE RECORDS SUMMARY | 2024-12-21 21:14 | XMS_ITS | Encounter Summary ---
Author Organization [facility] Address [address] [place] [address] Care Team Providers Care Central Supply Manager Name Role Phone Jaiden Schulte MD Primary Care Provider Encounter Details Date Type Department Care Team (Latest Contact Info) Description 07/20/1999 Outpatient Historical [facility] Medicine [address] [address] Lynsey Arechiga MD [address] [place] [phone] Acute pharyngitis (Primary Dx) Social History Tobacco Use Types Packs/Day Years Used Date Smoking Tobacco: Never Assessed Comments Unknown Sex and Gender Information Value Date Recorded Sex Assigned at Not on file Legal Sex Female 4:50 AM MOLD CHIPPER Gender Identity Not on file Sexual Orientation Not on file documented as of this encounter Plan of Treatment Not on file documented as of this encounter Visit Diagnoses Diagnosis Acute pharyngitis- Primary documented in this encounter Care Teams Central Supply Manager Relationship Specialty Start Date End Date Jaiden Schulte MD [address] [place] [address] PCP - General 04/24/07 documented as of this encounter
--- OUTSIDE RECORDS SUMMARY | 2024-12-21 21:14 | XMS_ITS | Encounter Summary ---
Author Organization [facility] Address [address] [place] [address] Care Team Providers Care Exercise Physiologist Certified Name Role Phone Jaiden Schulte MD Primary Care Provider [phone] Encounter Details Date Type Department Care Team (Latest Contact Info) Description 12/16/1999 Outpatient Historical [facility] Medicine [address], [place] [address] Lynsey Arechiga MD [address] [place] [phone] Myalgia and myositis, unspecified (Primary Dx); Abnormal weight gain; Need for prophylactic vaccination with tetanus toxoid alone Social History Tobacco Use Types Packs/Day Years Used Date Smoking Tobacco: Never Assessed Comments Unknown Sex and Gender Information Value Date Recorded Sex Assigned at Not on file Legal Sex Female 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
--- OUTSIDE RECORDS SUMMARY | 2024-12-21 21:14 | XMS_ITS | Encounter Summary ---
Author Organization [facility] Address [address] [facility] Attn: [place] [address] Care Team Providers Care Ground Operations Superintendent Name Role Phone aJiden Schulte MD Primary Care Provider Encounter Details Date Type Department Care Team (Late st Contact Info) Description 05/25/2001 Outpatient Historical Lynsey Arechiga MD [address] [place] [phone] Social History Tobacco Use Types Packs/Day Years Used Date Smoking Tobacco: Never Assessed Comments Unknown Sex and Gender Information Value Date Recorded Sex Assigned at Not on file Legal Sex Female 4:50 AM BED CONTROL SPECIALIST Gender Identity Not on file Sexual Orientation Not on file documented as of this encounter Plan of Treatment Not on file documented as of this encounter Visit Diagnoses Not on filedocumented in this encounter Care Teams Ground Operations Superintendent Relationship Specialty Start Date End Date Jaiden Schulte MD [address] [place] [address] PCP - General 04/24/07 documented as of this encounter
--- OUTSIDE RECORDS SUMMARY | 2024-12-21 21:14 | XMS_ITS | Encounter Summary ---
Author Organization [facility] Address [address] [place] [address] Care Team Providers Care Cook Chief Name Role Phone Jaiden Schulte MD Primary Care Provider Encounter Details Date Type Department Care Team (Latest Contact Info) Description 11/27/2001 Outpatient Historical [address] [phone] Jaiden Schulte MD [address] [place] [phone] DERMATITIS NOS (Primary Dx) Social History Tobacco Use Types Packs/Day Years Used Date Smoking Tobacco: Never Assessed Comments Unknown Sex and Gender Information Value Date Recorded Sex Assigned at Not on file Legal Sex Female 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
--- OUTSIDE RECORDS SUMMARY | 2024-12-21 21:14 | XMS_ITS | Encounter Summary ---
Author Organization [facility] Address [address] [place] [address] Care Team Providers Care Frame Straightener Name Role Phone Jaiden Schulte MD Primary Care Provider [phone] Encounter Details Date Type Department Care Team (Latest Contact Info) Description 04/29/2007 Outpatient Historical [address] [phone] Jaiden Schulte MD [address] [place] [phone] Abdominal Pain, Unspecified Site (Primary Dx); Other Malaise and Fatigue; Acute Frontal Sinusitis Social History Tobacco Use Types Packs/Day Years Used Date Smoking Tobacco: Never Assessed Comments Unknown Sex and Gender Information Value Date Recorded Sex Assigned at Not on file Legal Sex Female 4:50 AM MEDIA SERVICES SPECIALIST Gender Identity Not on file Sexual Orientation Not on file documented as of this encounter Plan of Treatment Not on file documented as of this encounter Visit Diagnoses Diagnosis Abdominal pain, unspecified site- Primary Other malaise and fatigue Acute frontal sinusitis documented in this encounter Care Teams Frame Straightener Relationship Specialty Start Date End Date Jaiden Schulte MD [address] [place] [phone] PCP - General 04/24/07 documented as of this encounter
--- OUTSIDE RECORDS SUMMARY | 2024-12-21 21:14 | XMS_ITS | Encounter Summary ---
Author Organization [facility] Address [address] [place] [address] Care Team Providers Care Oil Rig Roughneck Name Role Phone Jaiden Schulte MD Primary Care Provider Encounter Details Date Type Department Care Team (Latest Contact Info) Description 08/29/2002 Outpatient Historical [address] [phone] Felicitas Everett MD [address] [place] [address] ABDOMINAL PAIN UNSPEC SITE (Primary Dx); NONINFECT VAG LEUKORRHEA; FEMALE GENITAL SYMPTOMS NOS; TENSION HEADACHE Social History Tobacco Use Types Packs/Day Years Used Date Smoking Tobacco: Never Assessed Comments Unknown Sex and Gender Information Value Date Recorded Sex Assigned at Not on file Legal Sex Female 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
--- OUTSIDE RECORDS SUMMARY | 2024-12-21 21:14 | XMS_ITS | Clinical Summary ---
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 Gender Identity Not on file Sexual Orientation Not on file Plan of Treatment Health Maintenance Due Date Last Done Comments HEPATITIS B VACCINES (1 of 3 - 19+ 3-dose series) 11/10 HPV/Cotest (21-29) 12/02/1988 HPV/Cotest (30-65) 12/02/1997 DTAP/TDAP/TD VACCINES (1 - Tdap) 12/17/1999 12/16/19 00 CERVICAL CANCER SCREENING 08/29/2005 PAP SMEAR 08/29/2005 08/29/2002 BREAST CANCER SCREENING 2007 COLORECTAL SCREENING 12/02/2012 Colorectal Cancer Screening 12/02/2012 FIT-DNA Q 3 years 12/02/2012 FIT/FOBT Q 1 year 12/02/2012 Flex Sig/CT Colonography Q 5 years 12/02/2012 ZOSTER VACCINE (1 of 2) 12/02/2017 INFLUENZA VACCINE (#1) 2025 Care Teams Tester Wafer Substrate Relationship Specialty Start Date End Date Jaiden Schulte MD [address] [place] [phone] PCP - General 04/24/07
--- OUTSIDE RECORDS SUMMARY | 2024-12-21 21:14 | XMS_ITS | Encounter Summary ---
Author Organization [facility] Address [address] [place] [address] Care Team Providers Care Economic Research Analyst Name Role Phone Jaiden Schulte MD Primary Care Provider Encounter Details Date Type Department Care Team (Latest Contact Info) Description 07/31/2003 Outpatient Historical [address] [phone] Felicitas Everett MD [address] [place] [address], [address] ABDOMINAL PAIN LUQ (Primary Dx); JOINT PAIN-PELVIS; VAGINITIS NOS Social History Tobacco Use Types Packs/Day Years Used Date Smoking Tobacco: Never Assessed Comments Unknown Sex and Gender Information Value Date Recorded Sex Assigned at Not on file Legal Sex Female 4:50 AM PHOTOGRAPHIC 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
--- OUTSIDE RECORDS SUMMARY | 2024-12-21 21:14 | XMS_ITS | Encounter Summary ---
Author Organization [facility] Address [address] [place] [address] Care Team Providers Care Carton Maker Name Role Phone Jaiden Schulte MD Primary Care Provider Encounter Details Date Type Department Care Team (Latest Contact Info) Description 05/18/1999 Outpatient Historical [address] [phone] Jaiden Schulte MD [address] [place] [phone] Myalgia and myositis, unspecified (Primary Dx); Insomnia, unspecified Social History Tobacco Use Types Packs/Day Years Used Date Smoking Tobacco: Never Assessed Comments Unknown Sex and Gender Information Value Date Recorded Sex Assigned at Not on file Legal Sex Female 4:50 AM NURSING DIRECTOR Gender Identity Not on file Sexual Orientation Not on file documented as of this encounter Plan of Treatment Not on file documented as of this encounter Visit Diagnoses Diagnosis Myalgia and myositis, unspecified- Primary Mylagia and myositis, unspecified Insomnia, unspecified documented in this encounter Care Teams Carton Maker Relationship Specialty Start Date End Date Jaiden Schulte MD [address] [place] [phone] PCP - General 04/24/07 documented as of this encounter
--- OUTSIDE RECORDS SUMMARY | 2024-12-21 21:14 | XMS_ITS | Encounter Summary ---
Author Organization [facility] Address [address] [place] [address] Care Team Providers Care Microbiology Coordinator Name Role Phone Jaiden Schulte MD Primary Care Provider Encounter Details Date Type Department Care Team (Latest Contact Info) Description 11/18/2003 Outpatient Historical [address] [phone] Jaiden Schulte MD [address] [place] [phone] DERMATITIS NOS (Primary Dx) Social History Tobacco Use Types Packs/Day Years Used Date Smoking Tobacco: Never Assessed Comments Unknown Sex and Gender Information Value Date Recorded Sex Assigned at Not on file Legal Sex Female 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
--- OUTSIDE RECORDS SUMMARY | 2024-12-21 21:14 | XMS_ITS | Encounter Summary ---
Author Organization [facility] Address [address] [place] [address] Care Team Providers Care Airline Operations Agent Name Role Phone Jaiden Schulte MD Primary Care Provider Encounter Details Date Type Department Care Team (Latest Contact Info) Description 11/13/2002 Outpatient Historical [address] [phone] Jaiden Schulte MD [address] [place] [phone] DERMATITIS NOS (Primary Dx) Social History Tobacco Use Types Packs/Day Years Used Date Smoking Tobacco: Never Assessed Comments Unknown Sex and Gender Information Value Date Recorded Sex Assigned at Not on file Legal Sex Female 4:50 AM MOLD CLOSER HELPER Gender Identity Not on file Sexual Orientation Not on file documented as of this encounter Plan of Treatment Not on file documented as of this encounter Visit Diagnoses Diagnosis Contact dermatitis and other eczema, due to unspecified cause- Primary documented in this encounter Care Teams Airline Operations Agent Relationship Specialty Start Date End Date Jaiden Schulte MD [address] [place] [phone] PCP - General 04/24/07 documented as of this encounter
--- OUTSIDE RECORDS SUMMARY | 2024-12-21 21:14 | XMS_ITS | Encounter Summary ---
Author Organization [facility] Address [address] [place] [address] Care Team Providers Care Older Adult Social Work Specialist Name Role Phone Jaiden Schulte MD Primary Care Provider Encounter Details Date Type Department Care Team (Latest Contact Info) Description 08/20/2003 Outpatient Historical [facility] [address] [place] [address] Felicitas Everett MD [address], [address] ABDOMINAL PAIN LUQ (Primary Dx) Social History Tobacco Use Types Packs/Day Years Used Date Smoking Tobacco: Never Assessed Comments Unknown Sex and Gender Information Value Date Recorded Sex Assigned at Not on file Legal Sex Female 4:50 AM BUSINESS EMPLOYMENT SPECIALIST Gender Identity Not on file Sexual Orientation Not on file documented as of this encounter Plan of Treatment Not on file documented as of this encounter Visit Diagnoses Diagnosis Abdominal pain, left upper quadrant- Primary documented in this encounter Care Teams Older Adult Social Work Specialist Relationship Specialty Start Date End Date Jaiden Schulte MD [address], [place] [phone] PCP - General 04/24/07 documented as of this encounter
--- OUTSIDE RECORDS SUMMARY | 2024-12-21 21:14 | XMS_ITS | Encounter Summary ---
Author Organization [facility] Address [address] [facility] Attn: [place] [address] Care Team Providers Care Fabricating Machine Operator Name Role Phone Jaiden Schulte MD Primary Care Provider [phone] Encounter Details Date Type Department Care Team (Late st Contact Info) Description 12/16/1999 Outpatient Historical Lynsey Arechiga MD [address] [place] [phone] Social History Tobacco Use Types Packs/Day Years Used Date Smoking Tobacco: Never Assessed Comments Unknown Sex and Gender Information Value Date Recorded Sex Assigned at Not on file Legal Sex Female 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
--- OUTSIDE RECORDS SUMMARY | 2024-12-21 21:14 | XMS_ITS | Encounter Summary ---
Author Organization [facility] Address [address] [place] [address] Care Team Providers Care Breakdown Mill Operator Name Role Phone Jaiden Schulte MD Primary Care Provider Encounter Details Date Type Department Care Team (Latest Contact Info) Description 03/18/2001 Outpatient Historical [address] [phone] Felicitas Everett MD [address] [place] [phone] Neuralgia, neuritis, and radiculitis, unspecified (Primary Dx); Myalgia and myositis, unspecified; Allergy, unspecified not elsewhere classified Social History Tobacco Use Types Packs/Day Years Used Date Smoking Tobacco: Never Assessed Comments Unknown Sex and Gender Information Value Date Recorded Sex Assigned at Not on file Legal Sex Female 4:50 AM 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
--- OUTSIDE RECORDS SUMMARY | 2024-12-21 21:14 | XMS_ITS | Encounter Summary ---
Author Organization [facility] Address [address] [place] [address] Care Team Providers Care Chair Inspector Name Role Phone Jaiden Schulte MD Primary Care Provider Encounter Details Date Type Department Care Team (Late st Contact Info) Description 03/26/2003 Outpatient Historical [address] [phone] Felicitas Everett MD [address] [place] [address], [phone] Social History Tobacco Use Types Packs/Day Years Used Date Smoking Tobacco: Never Assessed Comments Unknown Sex and Gender Information Value Date Recorded Sex Assigned at Not on file Legal Sex Female 4:50 AM REVENUE CYCLE ANALYST Gender Identity Not on file Sexual Orientation Not on file documented as of this encounter Plan of Treatment Not on file documented as of this encounter Visit Diagnoses Not on filedocumented in this encounter Care Teams Chair Inspector Relationship Specialty Start Date End Date Jaiden Schulte MD [address] [place] [phone] PCP - General 04/24/07 documented as of this encounter
--- OUTSIDE RECORDS SUMMARY | 2024-12-21 21:14 | XMS_ITS | Patient Health Record ---
Author Organization [facility] Address [address] [place] [address] Care Team Providers Care Sales Agent Business Services Name Role Phone Hiren Ward Unavailable [phone] [place], Shamim Unavailable Unavailable Allergies Allergen (clinical drug ingredient) Drug/Non Drug Allergy documented on EMR Reaction Allergy Type Onset Date Status sulfamethoxazole / trimethoprim Bactrim (uncoded) Unknown Allergy Active codeine Codeine Unknown Drug Allergy Active Medications Medication SIG (Take, Route, Fr equency, Duration) Notes Start Date End Date Status Flexeril 10 MG 1 tablet Orally Once a day; Duration: 30 day(s) Active Vicodin 5-500 MG 1 tablet as needed O rally every 6 hrs Active Voltaren 1 % as directed Transdermal Active Flonase 50 MCG/ACT 1 spray in each nost ril Nasally Once a day; Duration: 30 day(s) Active Valium 10 MG 1 tablet as needed O rally Twice a day Active Problems Problem Type SNOMED Code ICD Code Onset Dates Problem Status W/U Status Risk Notes Problem 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 Problem Cervical radiculopathy (74370079) Cervical Radiculopathy (723.4) Active confirmed Plan Of Treatment No Information Insurance Providers Payer Name Payer Address Payer Phone Subscriber Number Group Number Insured Name Patient Relationship to Insured Coverage Start Date Coverage End Date [facility] [address] [place] [address] [id number] Andree Melissa Self - patient is the insured 2012 Medical (General) History Medical History History ICD Code HTN Surgical History Surgery Date(Month/Year) Hysterectomy with Bladder Tu ck, Appenedectomy, and Rectal Reconstruction 2001 Artificial Disc 2003 Cholecystectomy Hernia repair
--- OUTSIDE RECORDS SUMMARY | 2024-12-21 21:14 | XMS_ITS | Encounter Summary ---
Author Organization [facility] Address [address] [place] [address] Care Team Providers Care General Hardware Salesperson Name Role Phone Jaiden Schulte MD Primary Care Provider Encounter Details Date Type Department Care Team (Latest Contact Info) Description 04/22/2007 Outpatient Historical [address] [phone] Jaiden Schulte MD [address] [place] [phone] Acute Frontal Sinusitis (Primary Dx); Abdominal Pain, Left Lower Quadrant Social History Tobacco Use Types Packs/Day Years Used Date Smoking Tobacco: Never Assessed Comments Unknown Sex and Gender Information Value Date Recorded Sex Assigned at Not on file Legal Sex Female 4: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
--- OUTSIDE RECORDS SUMMARY | 2024-12-21 21:14 | XMS_ITS | Encounter Summary ---
Author Organization [facility] Address [address] [place] [address] Care Team Providers Care Freelance Translator Name Role Phone Jaiden Schulte MD Primary Care Provider [phone] Encounter Details Date Type Department Care Team (Latest Contact Info) Description 08/18/2003 Outpatient Historical [address] [phone] Felicitas Everett MD [address] [place] [address], [address] ABDOMINAL PAIN LUQ (Primary Dx); OTHER MALAISE AND FATIGUE; DIZZINESS AND GIDDINESS Social History Tobacco Use Types Packs/Day Years Used Date Smoking Tobacco: Never Assessed Comments Unknown Sex and Gender Information Value Date Recorded Sex Assigned at Not on file Legal Sex Female 4:50 AM SWITCHMAN Gender Identity Not on file Sexual Orientation Not on file documented as of this encounter Plan of Treatment Not on file documented as of this encounter Visit Diagnoses Diagnosis Abdominal pain, left upper quadrant- Primary Other malaise and fatigue Dizziness and giddiness documented in this encounter Care Teams Freelance Translator Relationship Specialty Start Date End Date Jaiden Schulte MD [address] [place] [phone] PCP - General 04/24/07 documented as of this encounter
--- OUTSIDE RECORDS SUMMARY | 2024-12-21 21:14 | XMS_ITS | Encounter Summary ---
Author Organization [facility] Address [address] [place] [address] Care Team Providers Care Ambulatory Services Representative Name Role Phone Jaiden Schulte MD Primary Care Provider Encounter Details Date Type Department Care Team (Latest Contact Info) Description 09/17/2002 Outpatient Historical [address] [phone] Felicitas Everett MD [address] [place] [address], [phone] NONSPEC ABNL PAP SMEAR CERVIX, UNSPEC (Primary Dx); DYSPAREUNIA; FEMALE GENITAL SYMPTOMS NOS Social History Tobacco Use Types Packs/Day Years Used Date Smoking Tobacco: Never Assessed Comments Unknown Sex and Gender Information Value Date Recorded Sex Assigned at Not on file Legal Sex Female 4:50 AM ARRESTING GEAR OPERATOR Gender Identity Not on file Sexual Orientation Not on file documented as of this encounter Plan of Treatment Not on file documented as of this encounter Visit Diagnoses Diagnosis Abnormal glandular Papanicolaou smear of cervix- Primary Dyspareunia Unspecified symptom associated with female genital organs documented in this encounter Care Teams Ambulatory Services Representative Relationship Specialty Start Date End Date Jaiden Schulte MD [address] [place] [address] PCP - General 04/24/07 documented as of this encounter
--- OUTSIDE RECORDS SUMMARY | 2024-12-21 21:14 | XMS_ITS | Encounter Summary ---
Author Organization [facility] Address [address] [place] [address] Care Team Providers Care Socially Responsible Investment Adviser Name Role Phone Jiaden Schulte MD Primary Care Provider Encounter Details Date Type Department Care Team (Late st Contact Info) Description 06/04/2007 Outpatient Historical HIS IN BED Sj Ed, Physician NO ADDRESS ON FILE Ernst Hopper MD NO ADDRESS ON FILE Edgar Paige MD NO ADDRESS ON FILE Social History Tobacco Use Types Packs/Day Years Used Date Smoking Tobacco: Never Assessed Comments Unknown Sex and Gender Information Value Date Recorded Sex Assigned at Not on file Legal Sex Female 4:50 AM CORE LOADER Gender Identity Not on file Sexual Orientation Not on file documented as of this encounter Plan of Treatment Not on file documented as of this encounter Procedures Procedure Name Priority Date/Time Associated Diagnosis Comments POC GLUCOSE Routine 06/07/2007 12:12 PM CORE LOADER POC GLUCOSE Routine 06/07/2007 9:05 AM CORE LOADER POC GLUCOSE Routine 06/07/2007 12:05 AM CORE LOADER POC GLUCOSE Routine 06/06/2007 5:59 PM CORE LOADER POC GLUCOSE Routine 06/06/2007 12:29 PM CORE LOADER POC GLUCOSE Routine 06/06/2007 5:41 AM CORE LOADER RENAL FUNCTION PANEL Routine 06/06/2007 3:54 AM CORE LOADER POC GLUCOSE Routine 06/06/2007 12:16 AM CORE LOADER POC GLUCOSE Routine 06/05/2007 5:51 PM CORE LOADER POC GLUCOSE Routine 06/05/2007 11:55 AM CORE LOADER POC GLUCOSE Routine 06/05/2007 8:13 AM CORE LOADER BASIC METABOLIC PANEL Routine 06/05/2007 7:56 AM CORE LOADER CBC WITH DIFFERENTIAL Routine 06/05/2007 5:13 AM CORE LOADER COMPREHENSIVE METABOLIC PANEL Routine 06/05/2007 5:13 AM CORE LOADER CBC WITH DIFFERENTIAL Routine 06/04/2007 6:27 AM CORE LOADER LIPASE Routine 06/04/2007 6:27 AM CORE LOADER COMPREHENSIVE METABOLIC PANEL Routine 06/04/2007 6:27 AM CORE LOADER documented in this encounter Results * POC GLUCOSE (06/07/2007 12:12 PM CORE LOADER) GLUCOSE POC 97 60 - 100 mg/dL INTERFACE SYSTEM 06/07/2007 12:1 2 PM CORE LOADER Edgar Paige MD POINT OF CARE TESTING Edit ed Performing Organization Address [facility] de Phone Number INTERFACE SYSTEM Refer to clinic/hospital department * (ABNORMAL) POC GLUCOSE (06/07/2007 9:05 AM CORE LOADER) GLUCOSE POC 108(H) 60 - 100 mg/dL INTERFACE SYSTEM 06/07/2007 9:05 AM CORE LOADER Edgar Paige MD POINT OF CARE TESTING Edit ed Performing Organization Address [facility]/ZIP Co de Phone Number INTERFACE SYSTEM Refer to clinic/hospital department * (ABNORMAL) POC GLUCOSE (06/07/2007 12:05 AM CORE LOADER) GLUCOSE POC 132(H) 60 - 100 mg/dL INTERFACE SYSTEM COMMENT POC Follow Protocol INTERFACE SYSTEM 06/07/2007 12:0 5 AM CORE LOADER us Edgar Paige MD POINT OF CARE TESTING Edit ed Performing Organization Address [facility] Phone Number INTERFACE SYSTEM Refer to clinic/hospital department * (ABNORMAL) POC GLUCOSE (06/06/2007 5:59 PM CORE LOADER) GLUCOSE POC 109(H) 60 - 100 mg/dL INTERFACE SYSTEM 06/06/2007 5:59 PM CORE LOADER us Edgar Paige MD POINT OF CARE TESTING Edit ed Performing Organization Address [facility] Phone Number INTERFACE SYSTEM Refer to clinic/hospital department * (ABNORMAL) POC GLUCOSE (06/06/2007 12:29 PM CORE LOADER) GLUCOSE POC 104(H) 60 - 100 mg/dL INTERFACE SYSTEM 06/06/2007 12:2 9 PM CORE LOADER us Edgar Paige MD POINT OF CARE TESTING Edit ed Performing Organization Address [facility] Phone Number INTERFACE SYSTEM Refer to clinic/hospital department * (ABNORMAL) POC GLUCOSE (06/06/2007 5:41 AM CORE LOADER) GLUCOSE POC 138(H) 60 - 100 mg/dL INTERFACE SYSTEM 06/06/2007 5:41 AM CORE LOADER us Edgar Paige MD POINT OF CARE TESTING Edit ed Performing Organization Address [facility] Phone Number INTERFACE SYSTEM Refer to clinic/hospital department * (ABNORMAL) RENAL FUNCTION PANEL (06/06/2007 3:54 AM CORE LOADER) PHOSPHORUS 2.9 2.5 - 4.6 mg/dL INTERFACE SYSTEM GLUCOSE 118(H) 70 - 110 mg/dL INTERFACE SYSTEM BUN 2(L) 7 - 17 mg/dL INTERFACE SYSTEM CREATININE 0.5(L) 0.7 - 1.2 mg/dL INTERFACE SYSTEM SODIUM 137 136 - 145 mEq/L INTERFACE SYSTEM POTASSIUM 4.0 3.5 - 5.0 mEq/L INTERFACE SYSTEM CHLORIDE 108 95 - 110 mEq/L INTERFACE SYSTEM CO2 26 22 - 32 mmol/l INTERFACE SYSTEM CALCIUM 8.3(L) 8.4 - 10.5 mg/dL INTERFACE SYSTEM ALBUMIN 2.8(L) 3.5 - 5.0 g/dL INTERFACE SYSTEM ANION GAP 7(L) 9 - 20 mEq/L INTERFACE SYSTEM OSMOLALITY, CALCULATED 280 275 - 295 mOsm/Kg INTERFACE SYSTEM 06/06/2007 3:54 AM CORE LOADER us Edgar Paige MD CHEMISTRY ORDERABLES Edite d Performing Organization Address [facility] Phone Number INTERFACE SYSTEM Refer to clinic/hospital department * (ABNORMAL) POC GLUCOSE (06/06/2007 12:16 AM CORE LOADER) GLUCOSE POC 113(H) 60 - 100 mg/dL INTERFACE SYSTEM 06/06/2007 12:1 6 AM CORE LOADER us Edgar Paige MD POINT OF CARE TESTING Edit ed Performing Organization Address [facility] Phone Number INTERFACE SYSTEM Refer to clinic/hospital department * (ABNORMAL) POC GLUCOSE (06/05/2007 5:51 PM CORE LOADER) GLUCOSE POC 132(H) 60 - 100 mg/dL INTERFACE SYSTEM 06/05/2007 5:51 PM CORE LOADER us Edgar Paige MD POINT OF CARE TESTING Edit ed Performing Organization Address [facility] Phone Number INTERFACE SYSTEM Refer to clinic/hospital department * (ABNORMAL) POC GLUCOSE (06/05/2007 11:55 AM CORE LOADER) GLUCOSE POC 128(H) 60 - 100 mg/dL INTERFACE SYSTEM 06/05/2007 11:5 5 AM CORE LOADER Edgar Paige MD POINT OF CARE TESTING Edit ed Performing Organization Address [facility] Phone Number INTERFACE SYSTEM Refer to clinic/hospital department * (ABNORMAL) POC GLUCOSE (06/05/2007 8:13 AM CORE LOADER) GLUCOSE POC 132(H) 60 - 100 mg/dL INTERFACE SYSTEM 06/05/2007 8:13 AM CORE LOADER Edgar Paige MD POINT OF CARE TESTING Edit ed Performing Organization Address [facility] Phone Number INTERFACE SYSTEM Refer to clinic/hospital department * (ABNORMAL) BASIC METABOLIC PANEL (06/05/2007 7:56 AM CORE LOADER) GLUCOSE 124(H) 70 - 110 mg/dL INTERFACE SYSTEM BUN 5(L) 7 - 17 mg/dL INTERFACE SYSTEM CREATININE 0.7 0.7 - 1.2 mg/dL INTERFACE SYSTEM SODIUM 134(L) 136 - 145 mEq/L INTERFACE SYSTEM POTASSIUM 4.3 3.5 - 5.0 mEq/L INTERFACE SYSTEM CHLORIDE 103 95 - 110 mEq/L INTERFACE SYSTEM CO2 22 22 - 32 mmol/l INTERFACE SYSTEM CALCIUM 8.9 8.4 - 10.5 mg/dL INTERFACE SYSTEM ANION GAP 13 9 - 20 mEq/L INTERFACE SYSTEM OSMOLALITY, CALCULATED 276 275 - 295 mOsm/Kg INTERFACE SYSTEM 06/05/2007 7:56 AM CORE LOADER Edgar Paige MD CHEMISTRY ORDERABLES Edite d Performing Organization Address [facility] Phone Number INTERFACE SYSTEM Refer to clinic/hospital department * (ABNORMAL) COMPREHENSIVE METABOLIC PANEL (06/05/2007 5:13 AM CORE LOADER) GLOBULIN (CALC) 2.6 2.4 - 3.9 g/dL INTERFACE SYSTEM ALBUMIN/GLOBULIN RATIO 1.2 1.0 - 2.3 INTERFACE SYSTEM GLUCOSE 157(H) 70 - 110 mg/dL INTERFACE SYSTEM BUN 6(L) 7 - 17 mg/dL INTERFACE SYSTEM CREATININE 0.8 0.7 - 1.2 mg/dL INTERFACE SYSTEM SODIUM 133(L) 136 - 145 mEq/L INTERFACE SYSTEM POTASSIUM 4.7 3.5 - 5.0 mEq/L INTERFACE SYSTEM Comment:Specimen slightly he molyzed CHLORIDE 105 95 - 110 mEq/L INTERFACE SYSTEM CO2 25 22 - 32 mmol/l INTERFACE SYSTEM CALCIUM 8.6 8.4 - 10.5 mg/dL INTERFACE SYSTEM TOTAL PROTEIN 5.7(L) 6.3 - 8.2 g/dL INTERFACE SYSTEM ALBUMIN 3.1(L) 3.5 - 5.0 g/dL INTERFACE SYSTEM ALKALINE PHOSPHATASE 72 25 - 100 U/L INTERFACE SYSTEM AST 30 8 - 33 U/L INTERFACE SYSTEM ALT 39(H) 4 - 36 IU/L INTERFACE SYSTEM BILIRUBIN TOTAL 0.2(L) 0.3 - 1.2 mg/dL INTERFACE SYSTEM ANION GAP 8(L) 9 - 20 mEq/L INTERFACE SYSTEM OSMOLALITY, CALCULATED 277 275 - 295 mOsm/Kg INTERFACE SYSTEM 06/05/2007 5:13 AM CORE LOADER us Edgar Paige MD CHEMISTRY ORDERABLES Edite d INTERFACE SYSTEM Refer to clinic/hospital department * (ABNORMAL) CBC WITH DIFFERENTIAL (06/05/2007 5:13 AM CORE LOADER) WBC 8.8 4.5 - 11.0 K/ul INTERFACE SYSTEM RBC 4.50 4.20 - 5.40 Mil/ul INTERFACE SYSTEM HEMOGLOBIN 12.3 12.0 - 16.0 g/dL INTERFACE SYSTEM HEMATOCRIT 36.1 36.0 - 46.0 % INTERFACE SYSTEM MCV 80.2(L) 84.0 - 103.0 Fl INTERFACE SYSTEM MCH 27.3 27.0 - 34.0 pg INTERFACE SYSTEM MCHC 34.1 30.0 - 35.0 g/dL INTERFACE SYSTEM RDW 13.4 11.0 - 14.5 % INTERFACE SYSTEM PLATELETS 368 140 - 440 K/ul INTERFACE SYSTEM MPV 10.4 8.9 - 12.8 Fl INTERFACE SYSTEM NEUTROPHILS 70.5 42.2 - 75.2 % INTERFACE SYSTEM LYMPHOCYTES 11.9(L) 24.0 - 44.0 % INTERFACE SYSTEM MONOCYTES 11.4(H) 2.0 - 10.0 % INTERFA CE SYSTEM EOSINOPHILS 5.6 0.0 - 7.0 % INTERF KEON SYSTEM BASOPHILS 0.6 0.0 - 1.0 % INTERFAC E SYSTEM NEUTROPHIL ABSOLUTE 6.2 2.0 - 8.0 K/ul INTERFACE SYSTEM LYMPHOCYTE ABSOLUTE 1.0(L) 1.2 - 4.0 K/ul INTERFACE SYSTEM MONOCYTE ABSOLUTE 1.0(H) 0.1 - 0.6 K/ul INTERFACE SYSTEM EOSINOPHIL ABSOLUTE 0.5 0.0 - 0.7 K/ul INTERFACE SYSTEM BASOPHILS ABSOLUTE 0.1 0.0 - 0.2 K/ul INTERFACE SYSTEM PERIPHERAL BLOOD SMEAR REVIEW Automated Diff Automated Diff INTERFACE SYSTEM 06/05/2007 5:13 AM CORE LOADER Edgar Paige MD HEMATOLOGY ORDERABLES Edit ed INTERFACE SYSTEM Refer to clinic/hospital department * LIPASE (06/04/2007 6:27 AM CORE LOADER) Pathologist [facility] LIPASE 20 6 - 51 U/L INTERFACE SYSTEM 06/04/2007 6:27 AM CORE LOADER us Physician Sj Ed CHEMISTRY ORDERABLES Edited INTERFACE SYSTEM Refer to clinic/hospital department * (ABNORMAL) COMPREHENSIVE METABOLIC PANEL (06/04/2007 6:27 AM CORE LOADER) GLUCOSE 124(H) 70 - 110 mg/dL INTERFACE SYSTEM BUN 18(H) 7 - 17 mg/dL INTERFACE SYSTEM CREATININE 2.2(H) 0.7 - 1.2 mg/dL INTERFACE SYSTEM SODIUM 127(L) 136 - 145 mEq/L INTERFACE SYSTEM POTASSIUM 4.2 3.5 - 5.0 mEq/L INTERFACE SYSTEM CHLORIDE 93(L) 95 - 110 mEq/L INTERFACE SYSTEM CO2 17(L) 22 - 32 mmol/l INTERFACE SYSTEM CALCIUM 10.1 8.4 - 10.5 mg/dL INTERFACE SYSTEM TOTAL PROTEIN 7.8 6.3 - 8.2 g/dL INTERFACE SYSTEM ALBUMIN 4.2 3.5 - 5.0 g/dL INTERFACE SYSTEM ALKALINE PHOSPHATASE 119(H) 25 - 100 U/L INTERFACE SYSTEM AST 45(H) 8 - 33 U/L INTERFACE SYSTEM ALT 51(H) 4 - 36 IU/L INTERFACE SYSTEM BILIRUBIN TOTAL 0.4 0.3 - 1.2 mg/dL INTERFACE SYSTEM GLOBULIN (CALC) 3.6 2.4 - 3.9 g/dL INTERFACE SYSTEM ALBUMIN/GLOBULIN RATIO 1.2 1.0 - 2.3 INTERFACE SYSTEM ANION GAP 21(H) 9 - 20 mEq/L INTERFACE SYSTEM OSMOLALITY, CALCULATED 267(L) 275 - 295 mOsm/Kg INTERFACE SYSTEM 06/04/2007 6:27 AM CORE LOADER us Physician Sj Ed CHEMISTRY ORDERABLES Edited INTERFACE SYSTEM Refer to clinic/hospital department * (ABNORMAL) CBC WITH DIFFERENTIAL (06/04/2007 6:27 AM CORE LOADER) WBC 14.7(H) 4.5 - 11.0 K/ul INTERFACE SYSTEM RBC 5.42(H) 4.20 - 5.40 Mil/ul INTERFACE SYSTEM HEMOGLOBIN 15.4 12.0 - 16.0 g/dL INTERFACE SYSTEM HEMATOCRIT 42.4 36.0 - 46.0 % INTERFACE SYSTEM MCV 78.2(L) 84.0 - 103.0 Fl INTERFACE SYSTEM MCH 28.4 27.0 - 34.0 pg INTERFACE SYSTEM MCHC 36.3(H) 30.0 - 35.0 g/dL INTERFACE SYSTEM RDW 13.2 11.0 - 14.5 % INTERFACE SYSTEM PLATELETS 407 140 - 440 K/ul INTERFACE SYSTEM MPV 11.2 8.9 - 12.8 Fl INTERFACE SYSTEM NEUTROPHILS 85.6(H) 42.2 - 75.2 % INTERFACE SYSTEM LYMPHOCYTES 8.6(L) 24.0 - 44.0 % INTERFACE SYSTEM MONOCYTES 4.8 2.0 - 10.0 % INTERFA CE SYSTEM EOSINOPHILS 0.9 0.0 - 7.0 % INTERF KEON SYSTEM BASOPHILS 0.1 0.0 - 1.0 % INTERFAC E SYSTEM NEUTROPHIL ABSOLUTE 12.6(H) 2.0 - 8.0 K/ul INTERFACE SYSTEM LYMPHOCYTE ABSOLUTE 1.3 1.2 - 4.0 K/ul INTERFACE SYSTEM MONOCYTE ABSOLUTE 0.7(H) 0.1 - 0.6 K/ul INTERFACE SYSTEM EOSINOPHIL ABSOLUTE 0.1 0.0 - 0.7 K/ul INTERFACE SYSTEM BASOPHILS ABSOLUTE 0.0 0.0 - 0.2 K/ul INTERFACE SYSTEM PERIPHERAL BLOOD SMEAR REVIEW Automated Diff Automated Diff INTERFACE SYSTEM 06/04/2007 6:27 AM CORE LOADER us Physician Sj Ed HEMATOLOGY ORDERABLES Edited INTERFACE SYSTEM Refer to clinic/hospital department documented in this encounter Visit Diagnoses Not on filedocumented in this encounter Care Teams Socially Responsible Investment Adviser Relationship Specialty Start Date End Date Jaiden Schulte MD [address] [place] [address] PCP - General 04/24/07 documented as of this encounter
--- OUTSIDE RECORDS SUMMARY | 2024-12-21 21:14 | XMS_ITS | Encounter Summary ---
Author Organization [facility] Address [address] [place] [address] Care Team Providers Care Fish Dressing Machine Feeder Name Role Phone Jaiden Schulte MD Primary Care Provider Encounter Details Date Type Department Care Team (Latest Contact Info) Description 12/20/2000 Outpatient Historical [address] [phone] Jaiden Schulte MD [address] [place] [phone] Dizziness and giddiness (Primary Dx); Other malaise and fatigue Social History Tobacco Use Types Packs/Day Years Used Date Smoking Tobacco: Never Assessed Comments Unknown Sex and Gender Information Value Date Recorded Sex Assigned at Not on file Legal Sex Female 4:50 AM CONTACT CENTER ASSISTANT Gender Identity Not on file Sexual Orientation Not on file documented as of this encounter Plan of Treatment Not on file documented as of this encounter Visit Diagnoses Diagnosis Dizziness and giddiness- Primary Other malaise and fatigue documented in this encounter Care Teams Fish Dressing Machine Feeder Relationship Specialty Start Date End Date Jaiden Schulte MD [address] [place] [address] [phone] PCP - General 04/24/07 documented as of this encounter
--- OUTSIDE RECORDS SUMMARY | 2024-12-21 21:14 | XMS_ITS | Encounter Summary ---
Author Organization [facility] Address [address] [facility] [address] Attn: [place] [address] Care Team Providers Care Chief Physical Therapist Name Role Phone Jaiden Schulte MD Primary Care Provider [phone] Encounter Details Date Type Department Care Team (Late st Contact Info) Description 12/20/2000 Outpatient Historical Maximilian Harrison, DRAMATIC READER [address] [place] [address] Social History Tobacco Use Types Packs/Day Years Used Date Smoking Tobacco: Never Assessed Comments Unknown Sex and Gender Information Value Date Recorded Sex Assigned at Not on file Legal Sex Female 4:50 AM SAP PI ARCHITECT Gender Identity Not on file Sexual Orientation Not on file documented as of this encounter Plan of Treatment Not on file documented as of this encounter Visit Diagnoses Not on filedocumented in this encounter Care Teams Chief Physical Therapist Relationship Specialty Start Date End Date Jaiden Schulte MD [address] [place] [address] PCP - General 04/24/07 documented as of this encounter
--- OUTSIDE RECORDS SUMMARY | 2024-12-21 21:14 | XMS_ITS | Encounter Summary ---
Author Organization [employer] [facility] Address [address] [place] [address] Care Team Providers Care Blocker Heated Metal Forms Name Role Phone Jaiden Schulte MD Primary Care Provider Encounter Details Date Type Department Care Team (Latest Contact Info) Description 09/17/2002 Outpatient Historical [facility] [address] [place] [address] Felicitas Everett MD [address], [address] CERVICITIS (Primary Dx) Social History Tobacco Use Types Packs/Day Years Used Date Smoking Tobacco: Never Assessed Comments Unknown Sex and Gender Information Value Date Recorded Sex Assigned at Not on file Legal Sex Female 4:50 AM MEDICAL BILLING REPRESENTATIVE Gender Identity Not on file Sexual Orientation Not on file documented as of this encounter Plan of Treatment Not on file documented as of this encounter Visit Diagnoses Diagnosis Cervicitis and endocervicitis- Primary documented in this encounter Care Teams Blocker Heated Metal Forms Relationship Specialty Start Date End Date Jaiden Schulte MD [address] [place] [phone] PCP - General 04/24/07 documented as of this encounter
--- OUTSIDE RECORDS SUMMARY | 2024-12-21 21:14 | XMS_ITS | Encounter Summary ---
Author Organization [facility] Address [address] [place] [address] Care Team Providers Care Breakfast Attendant Name Role Phone Jaiden Schulte MD Primary Care Provider Encounter Details Date Type Department Care Team (Latest Contact Info) Description 03/26/2003 Outpatient Historical [address] [phone] Felicitas Everett MD [address] [place] [address], [phone] Sprain of neck (Primary Dx); HEADACHE; VAGINITIS NOS Social History Tobacco Use Types Packs/Day Years Used Date Smoking Tobacco: Never Assessed Comments Unknown Sex and Gender Information Value Date Recorded Sex Assigned at Not on file 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
--- OUTSIDE RECORDS SUMMARY | 2024-12-21 21:14 | XMS_ITS | Encounter Summary ---
Author Organization [facility] Address [address] [place] [address] Care Team Providers Care Chief Resource Officer Name Role Phone Jaiden Schulte MD Primary Care Provider Encounter Details Date Type Department Care Team (Latest Contact Info) Description 05/14/2001 Outpatient Historical [address] [phone] Jaiden Schulte MD [address] [place] [phone] ENURESIS (Primary Dx); ABDOMINAL PAIN UNSPEC SITE; CLASS MIGRAIN W/O MENTN INTRACTABLE Social History Tobacco Use Types Packs/Day Years Used Date Smoking Tobacco: Never Assessed Comments Unknown Sex and Gender Information Value Date Recorded Sex Assigned at Not on file 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
--- OUTSIDE RECORDS SUMMARY | 2024-12-21 21:14 | XMS_ITS | Encounter Summary ---
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
[2024-12-21 22:13] VITALS: BP 131/91; PULSE 80; RESP 16; O2SAT 99
--- NOTE | 2024-12-21 23:05 | CTR_ITS ---
PROCEDURE INFORMATION: Exam: CT Head Without Contrast Exam date and time: 12/21/2024 11:34 PM Age: 59 years old Clinical indication: Pain; Headache; Migraine with dizziness and nausea; Additional info: Headache dizziness TECHNIQUE: Imaging protocol: Computed tomography of the head without contrast. Radiation optimization: All CT scans at this facility use at least one of these dose optimization techniques: automated exposure control; mA and/or kV adjustment per patient size (includes targeted exams where dose is matched to clinical indication); or iterative reconstruction. COMPARISON: MR costa's wo con [id number] 05/01/2022 2:44 PM RADIATION DOSE METRICS: Total DLP (mGy-cm): 1054.3 FINDINGS: Brain: No acute intra- or extra axial fluid collections are identified. The basal cisterns are patent. No mass effect or midline shift is seen. The paredes-white matter differentiation is normal. Periventricular hypoattenuation are nonspecific but likely the sequela of chronic small vessel ischemic disease. Incidental hyperostosis frontalis interna. Persistent prominence of the frontal subarachnoid spaces low-lying cerebellar tonsils reaching below the level of the foramen magnum. Suggestion of a partially empty sella. Cerebral ventricles: The ventricles are nondilated. Slightly asymmetric prominence of the left lateral ventricle compared to the right is likely a normal variant. Paranasal sinuses: The paranasal sinuses appear grossly clear. Mastoid air cells: The mastoid air cells appear grossly clear. Orbital cavities: The optic nerve sheath is slightly tortuous and possibly slightly dilated. The orbits appear normal. Bones: No acute calvarial fracture is identified. Soft tissues: No soft tissue abnormalities identified. Vasculature: There are atherosclerotic calcifications of the carotid siphons. CT/CT head wo con* [id number] IMPRESSION: 1. No evidence of acute intracranial hemorrhage, mass effect, or midline shift. 2. Fundus examination is recommended to exclude the possibility of papilledema and the remote possibility of idiopathic intracranial hypertension.
--- NOTE | 2024-12-21 23:07 | ED_ITS ---
HPI - Headache 2 General: Chief Complaint: Headache Stated Complaint: Migraine x 1 week, n/v Time Seen by Provider: 12/21/24 22:03 History of Present Illness: 59-year-old female with a history of rayo caden headache, cervical disc disease. She presents with headache ongoing for several days, with vomiting on and off. She has taken sumatriptan, Phenergan and baclofen without relief. She also complains of radicular left neck pain to her shoulder. No significant numbness or tingling or weakness currently. She has some chronic vision changes, but nothing acute. No fever. No diarrhea. She has had some dizziness. Related Data Home Medications ?Medication ?Instructions ?Recorded ?Confirmed baclofen 10 mg tablet 10 mg PO TID 01/26/22 estradiol 0.5 mg tablet 0.5 mg PO DAILY 01/26/22 pantoprazole 40 mg tablet,delayed 40 mg PO DAILY 01/2612/01/24 release rosuvastatin 10 mg tablet 10 mg PO DAILY 01/26/2211/10 sumatriptan succinate 25 mg tablet 25 mg PO Q2H PRN 12/01/24 promethazine 25 mg tablet 25 mg PO Q6H PRN 07/06/22 hydrocodone 10 mg-acetaminophen tab PO 09/19/24 325 mg tablet Previous Rx's ?Medication ?Instructions ?Recorded diazepam 10 mg tablet (Valium) 10 mg PO BID PRN anxiet y #2 tabs 06/13/24 onabotulinumtoxinA 100 unit See Rx Instructions .Route 07/10/24 solution for injection (Botox) .COMPLEX #2 ea Allergies Allergy/AdvReac Type Severity Reaction Status Date / Time codeine AdvReac Intermediate ADR-Abdominal Verified 12/21/24 21:14 Pain sulfamethizole AdvReac Intermediate ADR-Abdominal Verified 12/21/24 21:14 Pain trimethoprim AdvReac Intermediate ADR-Abdominal Verified 12/21/24 21:14 Pain PFSH ED 2 PFSH: Social History Smoking and tobacco/nicotine status: former use of tobacco/nicotine (quit 35+ years ago) Physical Exam 2 Const: COMMON NORMALS: no acute distress and alert GENERAL APPEARANCE: c ooperative; not ill appearing and not frail appearing HENMT: COMMON NORMALS: normocephalic, atraumatic and Normal external nose present HEAD & SCALP: normocephalic and atraumatic FACE & SINUS: normal facial exam and face symmetric NOSE: Normal external nose present Eye: COMMON NORMALS: Equal, round and reactive pupils present and EOMs intact bilaterally PUPIL: Yes Equal, round and reactive pupils present Neck/C-Spine: COMMON NORMALS: no meningeal signs GENERAL: Yes trachea midline Chest: CHEST: Yes Symmetrical chest wall rise Resp: COMMON NORMALS: normal respiratory effort, No retractions, No use of accessory muscles and clear to auscultation bilaterally AUSCULTATION: clear to auscultation bilaterally Cardio: COMMON NORMALS: regular rate and regular rhythm RATE: regular rate RHYTHM: regular rhythm GI: COMMON NORMALS: Normal to inspection, nondistended, normoactive bowel sounds present Extremity: COMMON NORMALS: no pedal edema Neuro: ERAN COMA SCALE: document GCS findings Eran coma scale eye opening: Spontaneous Buckeye coma scale verbal response: Orientated Buckeye coma scale motor response: Obey commands Eran coma scale total score: 15 S ENSORIUM/ORIENTATION: Yes alert MENINGEAL SIGNS: Yes no meningeal signs C OORDINATION/BALANCE: [id number] test normal and [id number] test normal SENSORY EXAM: Yes extremities (intact) MOTOR EXAM: Pronator motor function not present COORDINATION: [id number] test normal and [id number]-[id number] test normal Psych: COMMON NORMALS: speech normal SPEECH: Yes normal speech Skin: COMMON NORMALS: no rashes or lesions noted GENERAL SKIN EXAM: no rashes or lesions noted Course 2 Vital Signs: Vital signs: Vital Signs Temperature 97.5 F L 12/21/24 21:08 Pulse Rate 92 12/22/24 01:07 Respiratory Rate 14 12/22/24 01:07 Blood Pressure 118/53 12/22/24 01:07 Pulse Oximetry 95 12/22/24 01:07 Oxygen Delivery Me thod Room Air 12/21/24 22:13 MDM - Headache Medical Decision Making Vitals are stable in this patient. She has no neurological signs on exam. Laboratory shows normal CBC BMP CRP of 3 and liver enzymes. Head CT is pending. She is given IV fluids, fentanyl, Zofran, dexamethasone, and valproic acid. Likely complicated migraine with dizziness. Symptoms are improved. Head CT is nonacute. Mention is made of funduscopic exam to rule out rare cases of intracranial hypertension. The patient has had an ophthalmologic exam quite recently with no evidence of this. Lab Data 12/21/24 22:03 12/21/24 22:[address] 12/21/24 23:05 IMPRESSION: 1. No evidence of acute intracranial hemorrhage, mass effect, or midline shift. 2. Fundus examination is recommended to exclude the possibility of papilledema and the remote possibility of idiopathic intracranial hypertension. Laboratory Results WBC 7.08 10^3/uL (3.29-11.43) 12/21/24 22: RBC 5.03 10^6/uL (3.85-5.65) 12/21/24 22: Hgb 14.60 g/dL (11.27-16.99) 12/21/24 22:03 Hct 44.2 % (36-47) 12/21/24 22: MCV 87.9 fl (85-98) 12/21/24 22: MCH 29.0 pg (27-33) 12/21/24 22: MCHC 33.0 g/dL (30-55) 12/21/24 22: RDW 12.4 % (12.1-15.1) 12/21/24 22:03 Plt Count 239 10^3/cmm (157-399) 12/21/24 22:03 MPV 11.2 fL (7.4-10.4) H 12/21/24 22:03 Neut % (Auto) 68.1 % 12/21/24 22:03 Lymph % (Auto) 20.5 % 12/21/24 22:03 [place] % (Auto) 9.5 % 12/21/24 22: Eos % (Auto) 0.8 % 12/21/24 22: Baso % (Auto) 0.8 % 12/21/24 22:03 Neut # (Auto) 4.82 10^3/uL (1.8-7.7) 12/21/24 22:03 Lymph # (Auto) 1.5 10^3/uL (0.8-4.8) 12/21/24 22:03 [place] # (Auto) 0.7 10^3/uL (0.2-0.9) 12/21/24 22:03 Eos # (Auto) 0.1 10^3/uL (0.0-0.8) 12/21/24 22:03 Baso # (Auto) 0.1 10^3/uL (0.0-0.1) 12/21/24 22:03 Nucleated RBC % (auto) 0 % 12/21/24 22:03 Nucleated RBCs # 0.0 /100WBC 12/21/24 22:03 Sodium 140 mmol/L (136-145) 12/21/24 22:03 Potassium 3.9 mmol/L (3.5-5.1) 12/21/24 22:03 Chloride 103 mmol/L (98-107) 12/21/24 22:03 Carbon Dioxide 22 mmol/L (22-29) 12/21/24 22:03 Anion Gap 18.9 (5-19) 12/21/24 22:03 BUN 13 mg/dL (6-20) 12/21/24 22:03 Creatinine 0.7 mg/dL (0.5-0.9) 12/21/24 22:03 GFR Calculation 86.2 mL/min (90-130) L 12/21/24 22:03 Glucose 104 mg/dL (65-115) 12/21/24 22:03 Calculated Osmolality 290 mOsm/kg (285-295) 12/21/24 22:03 Calcium 9.4 mg/dL (8.5-10.5) 12/21/24 22:03 Total Bilirubin 0.5 mg/dL (0.15-1.2) 12/21/24 22:03 AST 15 U/L (0-32) 12/21/24 22:03 ALT 14 U/L (0-33) 12/21/24 22:03 Alkaline Phosphatase 63 U/L (35-105) 12/21/24 22:03 C-Reactive Protein 3.0 mg/L (0.0-4.9) 12/21/24 22:03 Total Protein 7.3 g/dL (6.6-8.7) 12/21/24 22:03 Albumin 4.4 g/dL (3.5-5.2) 12/21/24 22:03 Globulin 2.9 g/dL (1.3-4.6) 12/21/24 22:03 All radiology interpretation(s) finalized by discharge Discharge Plan Discharge Patient Disposition: Home Clinical Impression: Cervical disc disease, Headache, migraine Condition: Stable Prescriptions: No Action hydrocodone-acetaminophen 10-325 mg tablet PO pantoprazole 40 mg tablet,delayed release (DR/EC) 40 mg PO DAILY rosuvastatin 10 mg tablet 10 mg PO DAILY estradiol 0.5 mg tablet 0.5 mg PO DAILY Rx Instructions: off 5 days; repeat cycle baclofen 10 mg tablet 10 mg PO TID sumatriptan succinate 25 mg tablet 25 mg PO Q2H PRN Rx Instructions: do not exceed 8 doses per 24 hrs promethazine 25 mg tablet 25 mg PO Q6H PRN diazepam [Valium] 10 mg tablet 10 mg PO BID PRN (Reason: anxiety) Qty: 2 3RF Rx Instructions: Take 1 tab 1 hour prior to produce then 1 tab at procedure Botox 100 unit recon soln See Rx Instructions .ROUTE .COMPLEX Qty: 2 3RF Dose Instruction: Inject 155 units IM-31 sites, 5 units/site per FDA protocol: in procerus, 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, frontalis (2 sites bilaterally),temporalis (4 sites bilateral), occipitalis (3 sites bilateral), paraspinosus cervical bilaterally (2 injections), trapezius (3 sites bilateral) Rx Instructions: Inject 155 units IM-31 sites, 5 units/site per FDA protocol: in procerus, 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, frontalis (2 sites bilaterally),temporalis (4 sites bilateral), occipitalis (3 sites bilateral), paraspinosus cervical bilaterally (2 injections), trapezius (3 sites bilateral) Discharge Orders: Discharge ED (Routine); Ordered 12/22/24 Ordered By: Luis Antonio Mitchell Referrals: Yane Hdz FNP [Primary Care Provider, Nurse Practitioner] - 1-3 days Patient Instructions: Migraine Headache (ED), Cervical Radiculopathy (ED), Opioid Safety, Pain Management, Patient Portal & Christian Instructions Activity Restrictions/Additional Instructions: Return for fever, weakness, acute vision changes or speech changes, other concerning symptoms. Print Language: Irish Coding Level of Care Code ED Air Valve Repairer for Vent[facility] Valentino
[2024-12-21 23:16] LABS: Hematocrit 44.2 % (36-47); Hemoglobin 14.60 g/dL (11.27-16.99); Mean Corpuscular HGB Conc 33.0 g/dL (30-55); Mean Corpuscular Hemoglobin 29.0 pg (27-33); Mean Corpuscular Volume 87.9 fl (85-98); Nucleated Red Blood Cells % 0 %; Platelet Count 239 10^3/cmm (157-399); Red Blood Count 5.03 10^6/uL (3.85-5.65); White Blood Count 7.08 10^3/uL (3.29-11.43)
[2024-12-21] MEDS: ondansetron 2 mg/ML SDV 2 mL 4 MG IVP (23:20)
[2024-12-21 23:21] VITALS: RESP 16
[2024-12-21] MEDS: fentaNYL 50 mcg/mL INJ 2mL 100 MCG IVP (23:21)
[2024-12-21 23:29] LABS: Alanine Aminotransferase 14 U/L (0-33); Albumin Level 4.4 g/dL (3.5-5.2); Alkaline Phosphatase 63 U/L (35-105); Anion Gap 18.9 (5-19); Aspartate Amino Transferase 15 U/L (0-32); Blood Urea Nitrogen 13 mg/dL (6-20); Calcium 9.4 mg/dL (8.5-10.5); Carbon Dioxide 22 mmol/L (22-29); Chloride 103 mmol/L (98-107); Creatinine Clr Calc Pharmacy 87.7939; Globulin 2.9 g/dL (1.3-4.6); Glucose 104 mg/dL (65-115); Osmolality Calculated 290 mOsm/kg (285-295); Potassium 3.9 mmol/L (3.5-5.1); Sodium 140 mmol/L (136-145); Total Protein 7.3 g/dL (6.6-8.7)
[2024-12-22 01:07] VITALS: BP 118/53; PULSE 92; RESP 14; O2SAT 95
== END 2024-12-22 01:08 | disposition home or self-care (01) ==
PROVIDERS: Emergency Provider Emergency Medicine; PCP Nurse Practitioner Family
DX: M50.30 Other cervical disc degeneration, unspecified cervical region (principal); G43.909 Migraine, unspecified, not intractable, without status migrainosus; Z87.891 Personal history of nicotine dependence
CPT/HCPCS: 70450; 80053; 85025; 86140; 96374; 96375; 99284; J1100; J1885; J2405; J3010; J3490; J7030